=== PATIENT | male | born 1960 | race Caucasian/White ===

== ENCOUNTER 2022-05-13 08:53 | Inpatient (IN) | payer OTHER ==
[2022-05-13] VITALS (12 sets, daily range): BP systolic 54–129; BP diastolic 26–80
[~2022-05-13] VITALS: Ht 172.7 cm; Wt 64.9 kg
[2022-05-13] MEDS ORDERED: NACL 0.9% 1,000 ML IV ONE ×3 (09:00→13:30)
--- NOTE | 2022-05-13 09:10 | NUR ---
BLOOD AND ADINA SWAB COLLECTED AND HANDED TO LAB.
--- NOTE | 2022-05-13 09:30 | NUR ---
62Y/O MALE BIBA FROM [facility] EXTENDED CARE FOR LOW BLOOD SUGAR. EMS REPORTS BLOOD SUGAR ON SCENE WAS 24, PT GIVEN D10 IV. PT BLOOD SUGAR 169, HYPOTENSIVE 43/[address] PARISI AND RT MADE AWARE OF PT'S STATUS UPON ARRIVAL. PT PLACED IN GOWN, ON BEDSIDE MONITOR.
[2022-05-13 09:32] LABS: BASOPHILS % (AUTO) 0.2 % (0.0-2.0); EOSINOPHILS # (AUTO) 0.1 K/uL (0-0.4); EOSINOPHILS % (AUTO) 0.7 % (0.0-4.0); HEMATOCRIT 24.9 % (36-52); HEMOGLOBIN 8.1 g/dL (12.0-18.0); LYMPHOCYTES # (AUTO) 0.6 K/uL (2.0-11.5); LYMPHOCYTES % (AUTO) 2.9 % (20.5-51.1); MEAN CORPUSCULAR HEMOGLOBIN 28 pg (27-31); MEAN CORPUSCULAR HGB CONC 33 g/dL (33-37); MONOCYTES # (AUTO) 0.9 K/uL (0.8-1.0); MONOCYTES % (AUTO) 4.2 % (1.7-9.3); NEUTROPHILS # (AUTO) 19.6 K/uL (1.8-7.7); PLATELET COUNT (AUTO) 443 K/uL (140-450); RED BLOOD CELL COUNT(AUTO) 2.87 MIL/uL (4.20-6.10); RED CELL DISTRIBUTION WIDTH 14.8 % (11.6-13.7); WHITE BLOOD COUNT (AUTO) 21.3 K/uL (4.8-10.8)
[2022-05-13] MEDS ORDERED: NOREPINEPHRINE 4 MG/4 ML VIAL IV ONE (09:42)
[2022-05-13] MEDS ORDERED: ASPIRIN 81 MG TAB.CHEW GT ONE (09:45)
[2022-05-13] MEDS ORDERED: CEFEPIME 2,000 MG in DEXTROSE 5% 100 ML IV ONE (09:55)
[2022-05-13] MEDS ORDERED: VANCOMYCIN 1,000 MG in DEXTROSE 5% 250 ML IV ONE (09:55)
[2022-05-13 09:56] LABS: ALBUMIN 1.8 g/dL (3.4-5.0); ANION GAP 8.8 (8-16); ASPARTATE AMINOTRANSFERASE 13 U/L (15-37); CHLORIDE 99 mmol/L (98-107); CREATININE 0.6 mg/dL (0.6-1.3); GFR ARICAN-AMERICAN 175 mL/min (>90); GLUCOSE 152 mg/dL (74-106); POTASSIUM 3.8 mmol/L (3.5-5.1); SODIUM SERUM 138 mmol/L (136-145); TOTAL BILIRUBIN 0.1 mg/dL (0.0-1.0); UREA NITROGEN, BLOOD 42 mg/dL (7-18)
[2022-05-13] MEDS ORDERED: CEFEPIME 2,000 MG VIAL IV ONE (10:15)
[2022-05-13] MEDS ORDERED: CRUSHER, PILL MC ONE (10:33)
[2022-05-13] MEDS ORDERED: VANCOMYCIN 1,000 MG VIAL ONE (11:32)
[2022-05-13] MEDS ORDERED: ACETAMINOPHEN 325 MG TAB PO PRN (11:35)
[2022-05-13] MEDS ORDERED: ONDANSETRON 4 MG/2 ML VIAL IVP PRN (11:35)
[2022-05-13] MEDS ORDERED: MORPHINE SULFATE 4 MG/ML SYR IVP PRN (11:35)
[2022-05-13] MEDS ORDERED: VANCOMYCIN PER PHARMACY MC PRN (11:35)
[2022-05-13] MEDS ORDERED: POTASSIUM CHLORIDE 10 MEQ TABER PO PRN (11:35)
--- NOTE | 2022-05-13 12:35 | NUR ---
Patient will be admitted to care of Dr. Hicks. Admited to TELE. Will go to room ICU-1. Belongings list completed. Report to ERMIAS Haley.
--- NOTE | 2022-05-13 16:55 | NUR ---
Spoke to DR. ivy regarding 500 Residuals suctioned through G tube and stoma of tracheostomy, Orders given for KUB, ativan q6hs for agitation, and to wear fio2. Will continue to monitior patient is not on pressors currently.
[2022-05-13] MEDS ORDERED: VALP-22 GT (18:46)
[2022-05-13] MEDS ORDERED: QUET200T PO (18:48)
[2022-05-13] MEDS ORDERED: METF-346 PO (18:49)
[2022-05-13] MEDS ORDERED: PRO5 PO (18:50)
[2022-05-13] MEDS ORDERED: DOCU-299 PO (18:50)
[2022-05-13] MEDS ORDERED: FAMO-90 PO (18:51)
[2022-05-13] MEDS ORDERED: FERR-212 PO (18:52)
--- NOTE | 2022-05-13 19:20 | NUR ---
[facility]
[2022-05-13] MEDS: NACL 0.9% 1,000 ML IV SCH (21:50)
[2022-05-13] MEDS: PIPERACILLIN/TAZOBACTAM 3.375 GM in DEXTROSE 5% 50 ML IV SCH (21:51)
[2022-05-14] VITALS (14 sets, daily range): BP systolic 111–138; BP diastolic 60–83
--- NOTE | 2022-05-14 00:30 | NUR ---
FRANK CATHETER INSERTED AT BEDSIDE
[2022-05-14] MEDS: LORazepam 2 MG/ML VIAL IVP PRN ×4 (02:37→23:20)
[2022-05-14] MEDS: PIPERACILLIN/TAZOBACTAM 3.375 GM in DEXTROSE 5% 50 ML IV SCH ×3 (05:06→21:27)
[2022-05-14 05:24] LABS: APPEARANCE,URINE CLEAR (CLEAR); BILIRUBIN,URINE NEGATIVE (NEGATIVE); BLOOD, URINE TRACE-I (NEGATIVE); COLOR,URINE YELLOW (YELLOW); LEUKOCYTE ESTERASE ,URINE NEGATIVE (NEGATIVE); NITRITE, URINE NEGATIVE (NEGATIVE); UGLUCOSE NEGATIVE (NEGATIVE)
[2022-05-14 05:33] LABS: BASOPHILS % (AUTO) 0.2 % (0.0-2.0); EOSINOPHILS % (AUTO) 0.3 % (0.0-4.0); HEMOGLOBIN 8.3 g/dL (12.0-18.0); LYMPHOCYTES # (AUTO) 0.6 K/uL (2.0-11.5); LYMPHOCYTES % (AUTO) 3.4 % (20.5-51.1); MEAN CORPUSCULAR HEMOGLOBIN 28 pg (27-31); MEAN CORPUSCULAR HGB CONC 33 g/dL (33-37); MONOCYTES # (AUTO) 0.8 K/uL (0.8-1.0); MONOCYTES % (AUTO) 4.9 % (1.7-9.3); NEUTROPHILS % (AUTO) 91.2 % (42.2-75.2); PLATELET COUNT (AUTO) 423 K/uL (140-450); RED BLOOD CELL COUNT(AUTO) 2.91 MIL/uL (4.20-6.10); WHITE BLOOD COUNT (AUTO) 16.5 K/uL (4.8-10.8)
[2022-05-14 05:53] LABS: RBC,URINE 0-5 /HPF (0-5)
[2022-05-14 05:54] LABS: WBC,URINE 0-5 /HPF (0-5)
[2022-05-14 06:29] LABS: ALBUMIN 1.8 g/dL (3.4-5.0); ANION GAP 11.8 (8-16); CARBON DIOXIDE 29.3 mmol/L (21-32); CREATININE 0.5 mg/dL (0.6-1.3); MAGNESIUM 1.5 mg/dL (1.8-2.4); PHOSPHORUS 3.6 mg/dL (2.5-4.9); POTASSIUM 4.1 mmol/L (3.5-5.1); TOTAL BILIRUBIN 0.1 mg/dL (0.0-1.0)
--- NOTE | 2022-05-14 07:17 | NUR ---
PATIENT WITH POSSIBLE STOOL LEAKING FROM TRACHEOSTOMY, MD IS AWARE. KUB RESLUTS ARE PENDING GTUBE IS CLAMPED
--- NOTE | 2022-05-14 08:00 | NUR ---
RECEIVED REPORT FROM APARTMENT RENTAL CLERK. BASELINE ASSESSMENT COMPLETED.
--- NOTE | 2022-05-14 08:00 | NUR ---
RECEIVED REPORT FROM CERTIFIED MASTER SAFE TECHNICIAN NURSE. BASELINE ASSESSMENT COMPLETED.
[2022-05-14] MEDS: NACL 0.9% 1,000 ML IV SCH ×3 (08:12→23:25)
[2022-05-14] MEDS: DOCUSATE SODIUM 100 MG GELCAP PO SCH (08:25)
--- NOTE | 2022-05-14 08:58 | NUR ---
DC PLANNIN YRS OLD MALE PATIENT WAS ADMITTED FROM [facility] WITH A DX OF SEPSIS DUE TO PNEUMONIA. PATIENT HAS A HX OF ANOXIC BRAIN INJURY ,NON VERBAL TRACH TO VENT AND DYSPHAGIA WITH G-TUBE. CXR SHOWED MULTIFOCAL PNEUMONIA RAPID COVID TEST NEGATIVE. LOW BP 54/26 ADMITTED TO ICU FOR LEVOPHED DRIP.WBC ON ADMISSION 21.3 LACTIC ACID 2.9,3.4 AND 2.0 ADMINISTERED IVF, IV ABX VANCO AND ZOSYN. CONSULTED WITH PULMO. DC PLAN TO RETURN TO [facility] WHEN STABLE. CM TO FOLLOW Addendum: 05/26/22 at 1344 by Geno Andino RN DC PLANNING: PATIENT GOT ACCEPTED AT [facility] CAN GO TO ROOM 2A # TO GIVE REPORT [phone] ARRANGED TRANSPORT WITH [facility] SUPERVISOR ROD PLACING TIME 3PM NOTIFIED RANULFO MONSON. CM TO FOLLOW
--- NOTE | 2022-05-14 09:15 | NUR ---
DR THORNE AT BEDSIDE EVALUATING PATIENT. RECEIVED VERBAL ORDER TO REMOVE RECTAL TUBE.
--- NOTE | 2022-05-14 09:23 | NUR ---
PATIENT HAS BEEN SCREENED AND CATEGORIZED HIGH NUTRITION RISK. PATIENT WILL BE SEEN WITHIN 1-2 DAYS OF ADMISSION. 05/13/22-05/15/22 FNS CONSULT RECEIVED FOR UZMA 12 OR LOWER AND WOUNDS/PRESSURE ULCERS. REVIEWED BY RODRIGO GEE RD
--- NOTE | 2022-05-14 09:35 | NUR ---
REMOVED RECTAL TUBE PER DR THORNE
--- NOTE | 2022-05-14 09:48 | NUR ---
WOUND CARE NURSE AT BEDSIDE. NOTIFIED OF ORDERS: RIGHT HEEL-BETADINE BILATERAL HIPS HYDROGEL Addendum: 05/14/22 at 0903 by Agency Nurse ERMIAS Christianson RN LEFT HEEL
--- NOTE | 2022-05-14 10:59 | NUR ---
PATIENT IS A 62 Y/O PT. ADMITTED WITH HYPOGLYCEMIC AND HYPOTENSIVE. 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 TRACH AND GT SHELLEY STOMA SKIN DRY AND CLEAN. PT. ADMITTED WITH MULTIPLE PRESSURE INJURIES. PLAN OF CARE DISCUSSED WITH PRIMARY RN JAMES -MOISTURE ASSOCIATED SKIN DAMAGE(MASD) TO: B/L GROINS, TO SCROTAL, SKIN REDNESS, PEELING -PRESSURE INJURY SACRALCOCCYX UN-STAGEABLE 3X4CM WOUND BED 90% YELLOW SLOUGH TISSUE, MOIST, NO ODOR, WOUND EDGE FLAT, SHELLEY-WOUND SKIN HEALING SCAR TISSUE, WOUND EDGE SLIGHTLY PURPLE IN COLOR INDICATED FURTHER DAMAGE - PRESSURE INJURY STAGE 3 TO RIGHT TROCHANTER 3X1.5X0.2CM 50 % SCATTERED YELLOW SLOUGH TISSUE, 50% PINK GRANULATING TISSUE, MOIST NO ODOR, WOUND EDGE ATTACHED SHELLEY WOUND DRY HEALED SCAR SKIN. - PRESSURE INJURY UN-STAGEABLE TO LEFT TROCHANTER, 2 SITES, SITE #1 1X1CM THIN YELLOW SLOUGH TISSUE, MOIST NO ODOR, SHELLEY WOUND SKIN INTACT, SITE #2 0.8X1CM WOUND BED 100% BROWN COLOR, MOIST, NO ODOR -RIGHT HALLUX TOE DRY ABRASION 0.8X0.8CM -PRESSURE INJURY LEFT HEEL UNSTAGEABLE, 4X4CM, WOUND BED IS 100% BLACK ESCHAR TISSUE, DRY, NO ODOR, SHELLEY WOUND SKIN DRY SCALY RECOMMENDATIONS: -APPLY HYDRAGUARD TO B/L GROINS, TO SCROTAL BID AND PRN IF SOILING -LEFT HEEL APPLY SOAKED 4X4 GAUZES BETADINE SOLUTION AND COVER WITH SUSANNA DRESSING QD AND PRN IF SOILIBNG - CLEANSE SACRALCOCCYX, LEFT AND RIGHT HIP WITH WOUND CLEANSING SOLUTION, APPLY HYDROGEL WITH ADAPTIC DRESSING COVER WITH COMPOSITE DRESSING QD AND PRN IF SOILING -APPLY FOAM DRESSING TO SACROCOCCYX Q3 DAYS AND PRN IF SOILING -POSITIONING: TURN AND REPOSITION PATIENT Q 2H OR SOONER USE PILLOWS TO KEEP BONY PROMINENCES FROM DIRECT CONTACT WITH SURFACES USE REPOSITIONING WEDGES TO PROVIDE 30-DEGREE ANGLE FOR SIDE LYING POSITIONS OFFLOADING OR FOAM DRESSING TO ALL TUBING TO PREVENT MEDICAL DEVICES RELATED PRESSURE INJURY -RE-EVALUATING AND MANAGING INCONTINENCE MONITOR SKIN CONDITION DURING POSITION CHANGE DO NOT MASSAGE REDNESS, BONY PROMINENCES, DO NOT USE DONUT-TYPE DEVICES FREQUENT SHELLEY-CARE AND PROVIDE BARRIER CREAMS PRN IF SOILING MOISTURE CONTROL BY OFFER BED THEODORE/URINAL /ABSORBENT PAD TO WICK AND HOLD MOISTURE. KEEP SKIN DRY AND PROTECT FROM FRICTION -MANAGE FRICTION/SHEAR/MOBILITY KEEP HOB AT THE LOWEST LEVEL OF ELEVATION NO MORE THAN 30 DEGREES UNLESS OTHERWISE CONTRAINDICATED USE LIFT SHEET OR TRANSFER DEVICE TO MOVE PATIENT AND PREVENT LATERAL SHEER. CONSIDER TRAPEZE IF APPROPRIATE PROTECT HEELS, ELBOWS BONY PROMINENCES WITH SKIN BERRIES OR FOAM DRESSING IF EXPOSED TO FRICTION OFFLOAD BILATERAL HEELS BY PLACING PILLOWS UNDER CALVES AT ALL TIMES, UNLESS OTHERWISE CONTRAINDICATED -PRESSURE REDISTRIBUTION SURFACE THERAPY MERVIN ISOFLEX VIRI MATTRESS -NUTRITION: PLEASE FOLLOW RD RECOMMENDATIONS AND OFFER NUTRITION SUPPLEMENTS IF ORDERED.
[2022-05-14] MEDS ORDERED: VANCOMYCIN 1,000 MG in DEXTROSE 5% 250 ML IV SCH (11:00)
--- NOTE | 2022-05-14 11:45 | NUR ---
PATIENT KICKING SIDE RAIL INTERMITTENTLY, INSTRUCTED PATIENT HE POSSIBLE COULD HURT HIMSELF, CONTINUED TO KICK SIDE RAILS. GIVEN ATIVAN 1MG IVP FOR RASS +2
--- NOTE | 2022-05-14 12:04 | NUR ---
PATIENT DECREASED AGITATION RESTLESSNESS TO RASS -1, PATIENT NOT KICKING SIDE RAILS
--- NOTE | 2022-05-14 12:10 | NUR ---
UPDATED DAUGHTER ON PATIENTS CURRENT CONDITION VIA TELEPHONE
[2022-05-14] MEDS ORDERED: SKINTEGRITY HYDROGEL TP PRN (13:05)
[2022-05-14] MEDS: METOCLOPRAMIDE 10 MG/2 ML INJ VIAL IVP SCH ×2 (13:27→21:28)
--- NOTE | 2022-05-14 13:45 | NUR ---
DC PLANNING OUTREACHED TO PT EMERGENCY CONTACT, COREY WERNER, SISTER, TO GATHER COLLATERAL INFORMATION HOWEVER, COREY REQUESTING A RETURN PHONE CALL SHE WAS UNAVAILABLE TO SPEAK. SW TO FOLLOW
[2022-05-14] MEDS: SKINTEGRITY HYDROGEL TP SCH (14:29)
[2022-05-14] MEDS: GAUZE TP SCH (14:29)
[2022-05-14] MEDS: HYDRAGUARD CREAM TP SCH (15:25)
[2022-05-14] MEDS: HYDROcodone/APAP 5/325 MG 1 TAB TAB PO PRN (15:41)
--- NOTE | 2022-05-14 16:02 | NUR ---
05/14/2022 RD INITIAL ASSESSMENT COMPLETED. PLEASE REFER TO NUTRITION ASSESSMENT UNDER CARE ACTIVITY FOR ESTIMATED NUTRITIONAL NEEDS. 1.WHEN/IF MEDICALLY APPROPRIATE TO INITIATE TF, RECOMMEND GLUCERNA 1.2 ADRIANNE WITH A GOAL RATE OF 60ML/HR, STARTING AT 20 ML/HR AND INCREASING BY 20 ML Q4H UNTIL GOAL RATE IS REACHED. -FWF 200ML Q6H -PROSOURCE BID (30 GRAMS PROTEIN 120 KCAL)TO PROMOTE WOUND HEALING. THIS WILL PROVIDE (WITH PROSOURCE) 1788 KCAL, 116 GRAMS OF PROTEIN, AND 1159 ML FREE WATER, MEETING 92% OF ESTIMATED CALORIE AND 100% OF PROTEIN NEEDS; ADEQUATE. 2. MONITOR NPO STATUS 3.RD TO FOLLOW-UP IN 2-3 DAYS PATIENT IS HIGH RISK. RODRIGO GEE RD
--- NOTE | 2022-05-14 18:15 | NUR ---
TRANSFERRED PATIENT TO ROOM 113 VIA BED WITH RT. REPORT GIVEN AT BEDSIDE TO LAURA MONSON
--- NOTE | 2022-05-14 18:18 | NUR ---
RECEIVE REPORT FORM ICU NURSE JAMES THAT PATIENT IS NPO R/T G-TUBE FEED; COME FROM SNF FOR HYPOGLYCEMIC & HYPOTENSIVE CONDITION WHICH DIAGNOSIS WITH SEPSIS 2/2 PNA W/ HX OF ANOXIC BRAIN INJURY, NON-VERBAL, DM, CHRONIC RESPIRATORY FAILURE W/ TRACH ON VENTILATORY (FIO2=35), DYSPHAGIC ON G-TUBE. L. SIDE HEMIPARESIS; NKA, FULL CODE, BED BOUND, FRANK 16FR PRESENT FOR INCONTINENT, PIV R. FOREARM INFUSING NS @100ML/HR. L.WRIST SALINE LOCK. WOUND PRESENT AT L.TOE (USING BETADINE DRESSING), R. HEEL, l. & R. HIP (USING HYDROGEL DRESSING). REST[facility] WILL CONTINUE TO MONITOR Addendum: 05/14/22 at 1911 by Malini Herzog RN ENDORSE PATIENT TO PM SHIFT NURSE IN STABLE CONDITION. INFORM NURSE THAT RECTAL TUBE IS AVAILABLE IF PATIENT HAS DIARRHEA
--- NOTE | 2022-05-14 19:51 | NUR ---
RECEIVED PATIENT FROM DAY RN FOR CONTINUITY OF CARE. PT NON VERBAL, APHASIC. ON TRACH TO VENT 35% FIO2. ON SOFT WRISTS RESTRAINTS ON BILATERAL WRISTS. FRANK IN PLACE DRAINING CLEAR YELLOW URINE.NO S/SX OF DISTRESS AT THIS MOMENT.ALL PRECAUTIONS IN PLACE.WILL CONTINUE TO MONITOR.
--- NOTE | 2022-05-14 21:00 | NUR ---
SCHEDULED MEDICATIONS GIVEN. NO DISTRESS NOTED. WILL CONTINUE TO MONITOR.
[2022-05-14] MEDS: MAGNESIUM OXIDE 400 MG TAB PO PRN (23:30)
--- NOTE | 2022-05-14 23:38 | NUR ---
PATIENT REPOSITIONED WOUND DRESSING CHANGED. 1MG ATIVAN PRN GIVEN DUE TO RESTLESSNESS. WILL CONTINUE TO MONITOR. O2 SAT AT 97%.
[2022-05-15] VITALS: BP 128/67
--- NOTE | 2022-05-15 01:00 | NUR ---
PATIENT IS ASLEEP. CHEST RISE AND FALL NOTED, BREATHING EQUAL AND UNLABORED. ALL PRECAUTIONS IN PLACE.. WILL CONTINUE TO MONITOR
[2022-05-15] MEDS: HYDRAGUARD CREAM TP SCH ×2 (01:14→13:14)
[2022-05-15 04:00] VITALS: BP 114/66
--- NOTE | 2022-05-15 05:30 | NUR ---
SCHEDULED MEDICATIONS GIVEN. PT TOLERATED WELL. O2 SAT AT 97%. ALL PRECAUTIONS IN PLACE. WILL CONTINUE TO MONITOR.
[2022-05-15] MEDS: PIPERACILLIN/TAZOBACTAM 3.375 GM in DEXTROSE 5% 50 ML IV SCH ×3 (05:38→21:11)
[2022-05-15] MEDS: METOCLOPRAMIDE 10 MG/2 ML INJ VIAL IVP SCH ×3 (05:38→21:11)
--- NOTE | 2022-05-15 06:53 | NUR ---
PT IS STABLE. NO ACUTE EVENTS THROUGHOUT THE NIGHT.NO S/SX OF DISTRESS NOTED. ALL NEEDS ATTENDED. ALL PRECAUTIONS IN PLACE. WILL ENDORSE TO AM SHIFT NURSE.
--- NOTE | 2022-05-15 07:25 | NUR ---
RECEIVED BEDSIDE REPORT FROM [facility] ERMIAS SELLERS FOR CONTINUITY OF CARE. PT IS APHASIC A&OX1. PT IS CURRENTLY ON A TRACH TO VENT, SATING AT 97%. PTS FLACC IS 0. PT HAS GTUBE IN PLACE WHICH IS CLAMPED. PT HAS A RIGHT FOREARM 20G IV WHICH IS PATENT AND INTACT, 18G IV IN THE LEFT WRIST WHICH IS PATENT & INTACT. PTS BED IS IN LOWEST POSITION, BED ALARMS ON, CALL LIGHT WITHIN REACH. WILL MONITOR FREQUENTLY.
[2022-05-15 07:37] LABS: BASOPHILS % (AUTO) 0.2 % (0.0-2.0); EOSINOPHILS % (AUTO) 0.5 % (0.0-4.0); LYMPHOCYTES # (AUTO) 0.6 K/uL (2.0-11.5); LYMPHOCYTES % (AUTO) 6.5 % (20.5-51.1); MEAN CORPUSCULAR HEMOGLOBIN 29 pg (27-31); MEAN CORPUSCULAR HGB CONC 34 g/dL (33-37); MEAN CORPUSCULAR VOLUME 85.4 fL (80-94); MONOCYTES # (AUTO) 0.6 K/uL (0.8-1.0); MONOCYTES % (AUTO) 6.8 % (1.7-9.3); NEUTROPHILS # (AUTO) 7.9 K/uL (1.8-7.7); PLATELET COUNT (AUTO) 395 K/uL (140-450); RED BLOOD CELL COUNT(AUTO) 2.29 MIL/uL (4.20-6.10); WHITE BLOOD COUNT (AUTO) 9.2 K/uL (4.8-10.8)
[2022-05-15 07:48] LABS: HEMATOCRIT 19.5 % (36-52); HEMOGLOBIN 6.6 g/dL (12.0-18.0)
[2022-05-15 08:00] VITALS: BP 124/81
[2022-05-15 08:09] LABS: ALBUMIN 1.7 g/dL (3.4-5.0); ANION GAP 8.5 (8-16); CREATININE 0.4 mg/dL (0.6-1.3); MAGNESIUM 1.3 mg/dL (1.8-2.4); PHOSPHORUS 2.7 mg/dL (2.5-4.9); POTASSIUM 3.5 mmol/L (3.5-5.1); TOTAL BILIRUBIN 0.2 mg/dL (0.0-1.0)
[2022-05-15] MEDS: DOCUSATE SODIUM 100 MG GELCAP PO SCH (08:50)
[2022-05-15] MEDS: NACL 0.9% 1,000 ML IV SCH (08:51)
[2022-05-15 10:44] LABS: BASOPHILS % (AUTO) 0.4 % (0.0-2.0); EOSINOPHILS # (AUTO) 0.1 K/uL (0-0.4); EOSINOPHILS % (AUTO) 0.6 % (0.0-4.0); LYMPHOCYTES # (AUTO) 0.6 K/uL (2.0-11.5); LYMPHOCYTES % (AUTO) 7.1 % (20.5-51.1); MEAN CORPUSCULAR HEMOGLOBIN 29 pg (27-31); MEAN CORPUSCULAR HGB CONC 33 g/dL (33-37); MEAN CORPUSCULAR VOLUME 86.4 fL (80-94); MONOCYTES # (AUTO) 0.7 K/uL (0.8-1.0); MONOCYTES % (AUTO) 7.9 % (1.7-9.3); NEUTROPHILS # (AUTO) 7.5 K/uL (1.8-7.7); PLATELET COUNT (AUTO) 393 K/uL (140-450); RED BLOOD CELL COUNT(AUTO) 2.26 MIL/uL (4.20-6.10); RED CELL DISTRIBUTION WIDTH 15.1 % (11.6-13.7)
[2022-05-15 10:53] LABS: HEMATOCRIT 19.5 % (36-52); HEMOGLOBIN 6.5 g/dL (12.0-18.0)
[2022-05-15 12:00] VITALS: BP 123/75
[2022-05-15] MEDS: VANCOMYCIN 750 MG in DEXTROSE 5% 250 ML IV SCH (12:13)
[2022-05-15] MEDS ORDERED: MAG SULF 2000 MG/WATER PREMIX 50 ML IV SCH (12:32)
[2022-05-15] MEDS: MUPIROCIN CA NASAL 2% 1GM TUBE NS SCH (13:13)
[2022-05-15] MEDS: CHLORHEXADINE GLUC 2% CLOTH TP SCH (13:14)
[2022-05-15] MEDS: GAUZE TP SCH (13:14)
[2022-05-15] MEDS: SKINTEGRITY HYDROGEL TP SCH (13:15)
--- NOTE | 2022-05-15 13:41 | NUR ---
DC PLANNING PT TRAYC- VENT DEPENDENT. OUTREACHED TO PT'S SISTER ALIA WERNER, . ALIA REPORTS PT IS IN SUBACUTE CARE WITH [facility], ADMISSION DATE; 04/11/22. AILA REPORTS PATIENT IS A NEW TRAYC TO VENT PT HE WAS COMPLETELY INDEPENDENT PRIOR TO BEING TRAYC'D. ALIA REPORTS PATIENT PREVIOUSLY LIVED AT HOME WITH HER AND THEIR MOTHER. PTS DAUGHTER YUNI GLORIA, RESIDES IN [place] HOWEVER, IS REPORTED TO BE ACTIVE IN PT'S CARE. PT IS CURRENTLY BED BOUND AND TOTAL CARE AT FACILITY. ALIA REPORTS DC PLAN IS FOR PT TO RETURN TO [facility] ONCE MEDICALLY STABLE. Addendum: 05/15/22 at 1342 by Timothy IRELAND Amended: Links added.
[2022-05-15 16:00] VITALS: BP 121/67
--- NOTE | 2022-05-15 18:05 | NUR ---
RESPIRATORY THERAPIST CHANGED PTS DRESSING OVER TRACH, PT TOLERATED WELL, SATING AT 98%.
--- NOTE | 2022-05-15 19:15 | NUR ---
RECEIVED BEDSIDE REPORT FROM DAY SHIFT RN FAISAL FOR CONTINUITY OF CARE. PT IS APHASIC. PT IS TRACH TO VENT. SETTINGS: FIO2 35%, VT 450, RT 16, PEEP 5. PT SATING 98%. PT IS ON SOFT WRIST RESTRAINTS. PT KEEPS KICKING THE SIDE RAIL WITH RIGHT LEG. SIDE RAIL IS PADDED. PT HAS HEEL PROTECTORS ON. PT HAS FC DRAINING VICENTE URINE. PT HAS RIGHT FOREARM 20 GAUGE. AND LEFT WRIST 18 GAUGE. PT HAS NS 100 CC/HR. PT IS DUE FOR 2 PACK RBC. NOT DONE DURING DAY SHIFT.
--- NOTE | 2022-05-15 19:20 | NUR ---
ENDORSED PT TO NIGHTSHIFT RN RADHA. PT IN STABLE CONDITION.
[2022-05-15 20:00] VITALS: BP 123/67
--- NOTE | 2022-05-15 21:12 | NUR ---
SCHEDULE MEDICATION GIVEN. NO ADVERSE REACTION NOTED. WILL CONTINUE TO MONITOR THE PT.
--- NOTE | 2022-05-15 22:40 | NUR ---
1ST UNIT OF PRBC STARTED. NO BLOOD TRANSFUSION REACTION NOTED. WILL CONTINUE TO MONITOR THE PT.
[2022-05-16] VITALS: BP 134/77
--- NOTE | 2022-05-16 01:08 | NUR ---
2ND UNIT OF PRBC STARTED. NO BLOOD TRANSFUSION REACTION NOTED.
[2022-05-16] MEDS: HYDRAGUARD CREAM TP SCH ×2 (01:13→13:05)
--- NOTE | 2022-05-16 02:04 | NUR ---
RT BY BEDSIDE. PT IS NOT IN ANY ACUTE DISTRESS.
--- NOTE | 2022-05-16 03:25 | NUR ---
2ND UNIT PF PRBC FINISHED. NO BLOOD TRANSFUSION REACTION NOTED.
[2022-05-16 04:00] VITALS: BP 144/82
--- NOTE | 2022-05-16 05:10 | NUR ---
PT WAS CLEANED AND CHANGED. SOILED DRESSING CHANGED FROM SACRAL, LEFT HEEL, AND RIGHT HIP.
[2022-05-16] MEDS: METOCLOPRAMIDE 10 MG/2 ML INJ VIAL IVP SCH ×3 (05:22→20:29)
[2022-05-16] MEDS: PIPERACILLIN/TAZOBACTAM 3.375 GM in DEXTROSE 5% 50 ML IV SCH ×3 (05:22→20:29)
--- NOTE | 2022-05-16 07:25 | NUR ---
ENDORSED PT TO DAY SHIFT RN TOMAS FOR CONTINUITY OF CARE. PT IS STABLE.
--- NOTE | 2022-05-16 07:30 | NUR ---
RECEIVED REPORT FROM NIGHTSHIFT NURSERADHA. PT AWAKE AND ALERT, APHASIC. TRACH TO VENT WITH FIO2 @ 35%, VT 450, RR16. 02 SAT @ 100%. GTUBE DRESSING C/D/I. FRANK VIA GRAVITY. RFA #20 AND L WRIST #18. NS @ 40 ML/HR. BILATERAL SOFT WRIST RESTRAINTS WITH GOOD C/S/M. BILATERAL HEEL BOOTS IN PLACE. NEEDS ALL MET AT THIS TIME. PT REPOSITIONED, PT TOLERATED WELL. CONTACT PRECAUTION IN PLACE. ALL SAFETY MEASURES IN PLACE.
--- NOTE | 2022-05-16 07:50 | NUR ---
CONTACTED FOR PRN MG RIDER ORDER. AWAITING RESPONSE.
[2022-05-16 08:00] VITALS: BP 162/79
--- NOTE | 2022-05-16 08:00 | NUR ---
RT AT BEDSIDE, SUCTIONED PT. PT TOLERATED WELL. 02 SAT @ 100%. PT IN NO ACUTE DISTRESS. ALL SAFETY MEASURES IN PLACE.
[2022-05-16 08:35] LABS: BASOPHILS % (AUTO) 0.5 % (0.0-2.0); EOSINOPHILS # (AUTO) 0.1 K/uL (0-0.4); EOSINOPHILS % (AUTO) 0.5 % (0.0-4.0); HEMATOCRIT 26.9 % (36-52); LYMPHOCYTES # (AUTO) 0.6 K/uL (2.0-11.5); LYMPHOCYTES % (AUTO) 6.2 % (20.5-51.1); MEAN CORPUSCULAR HEMOGLOBIN 29 pg (27-31); MEAN CORPUSCULAR HGB CONC 34 g/dL (33-37); MEAN CORPUSCULAR VOLUME 87.1 fL (80-94); MONOCYTES % (AUTO) 9.6 % (1.7-9.3); NEUTROPHILS # (AUTO) 8.6 K/uL (1.8-7.7); NEUTROPHILS % (AUTO) 83.2 % (42.2-75.2); PLATELET COUNT (AUTO) 378 K/uL (140-450); RED BLOOD CELL COUNT(AUTO) 3.09 MIL/uL (4.20-6.10); RED CELL DISTRIBUTION WIDTH 14.4 % (11.6-13.7); WHITE BLOOD COUNT (AUTO) 10.3 K/uL (4.8-10.8)
[2022-05-16 08:58] LABS: ALBUMIN 1.8 g/dL (3.4-5.0); ANION GAP 13.6 (8-16); CREATININE 0.4 mg/dL (0.6-1.3); MAGNESIUM 1.6 mg/dL (1.8-2.4); PHOSPHORUS 2.6 mg/dL (2.5-4.9); POTASSIUM 3.6 mmol/L (3.5-5.1); TOTAL BILIRUBIN 0.4 mg/dL (0.0-1.0)
[2022-05-16] MEDS: DOCUSATE SODIUM 100 MG GELCAP PO SCH (09:00)
--- NOTE | 2022-05-16 10:00 | NUR ---
MD ORDER FOR PRN HYDRALAZINE AND DOCUSATE LIQUID VIA GTUBE. MD ALSO ORDER TO HOLD FEEDING.
[2022-05-16] MEDS: MAG SULF 2000 MG/WATER PREMIX 50 ML IV SCH ×2 (10:05→17:13)
[2022-05-16] MEDS: NACL 0.9% 1,000 ML IV SCH (10:05)
[2022-05-16] MEDS ORDERED: hydrALAZINE 20 MG/ML VIAL IVP PRN (10:20)
[2022-05-16 12:00] VITALS: BP 159/73
[2022-05-16] MEDS: MUPIROCIN CA NASAL 2% 1GM TUBE NS SCH (12:12)
[2022-05-16] MEDS: CHLORHEXADINE GLUC 2% CLOTH TP SCH (12:17)
[2022-05-16] MEDS: HYDROcodone/APAP 5/325 MG 1 TAB TAB PO PRN (12:21)
[2022-05-16] MEDS: VANCOMYCIN 750 MG in DEXTROSE 5% 250 ML IV SCH ×4 (12:26→23:46)
[2022-05-16] MEDS: SKINTEGRITY HYDROGEL TP SCH (13:04)
[2022-05-16] MEDS: GAUZE TP SCH (13:04)
[2022-05-16 16:00] VITALS: BP 153/70
[2022-05-16] MEDS ORDERED: MAG SULF 2000 MG/WATER PREMIX 50 ML IV ONE (16:27)
--- NOTE | 2022-05-16 18:30 | NUR ---
DISCHARGE INSTRUCTIONS GIVEN. PT VERBALIZED UNDERSTANDING. IV DISCONTINUED, CATHETER INTACT. AWAITING PT'S TO PICKUP. NEEDS ALL MET. ALL SAFETY MEASURES IN PLACE. Addendum: 05/16/22 at 1921 by Agency 05 RN RN WRONG PT.
--- NOTE | 2022-05-16 19:21 | NUR ---
REPORT GIVEN TO NIGHTSWVFT NURSE RADHA FOR CONTINUITY OF CARE.
--- NOTE | 2022-05-16 19:25 | NUR ---
RECEIVED BEDSIDE REPORT FROM DAY SHIFT RN TOMAS FOR CONTINUITY OF CARE. PT IS APHASIC. PT IS TRACH TO VENT. SETTINGS: FIO2 35%, VT 450, RT 16, PEEP 5. PT SATING 99%. PT IS ON SOFT WRIST RESTRAINTS. PT KEEPS KICKING THE SIDE RAIL WITH RIGHT LEG. SIDE RAIL IS PADDED. PT HAS HEEL PROTECTORS ON. PT HAS FC DRAINING VICENTE URINE. PT HAS RIGHT FOREARM 20 GAUGE. AND LEFT WRIST 18 GAUGE. PT HAS NS 40 CC/HR. PT HAS SEVERAL WOUNDS ON LEFT AND RIGHT HIP, LEFT HEEL, RIGHT BIG TUE, AND SACRAL. PT HAS GTUBE. FEEDING IS ON HOLD. WILL CONTINUE TO MONITOR THE PT.
[2022-05-16 20:00] VITALS: BP 143/67
--- NOTE | 2022-05-16 20:35 | NUR ---
SCHEDULE MEDICATIONS GIVEN. NO ADVERSE REACTION NOTED. WILL CONTINUE TO MONITOR THE PT.
--- NOTE | 2022-05-16 23:58 | NUR ---
SCHEDULE VANCO GIVEN. NOT ADVERSE REACTION NOTED. PT IS CALM AND NOT IN ANY DISTRESS. WILL CONTINUE TO MONITOR THE PT.
[2022-05-17] VITALS (7 sets, daily range): BP systolic 144–189; BP diastolic 62–88
[2022-05-17] MEDS: HYDRAGUARD CREAM TP SCH ×2 (01:00→13:00)
--- NOTE | 2022-05-17 03:16 | NUR ---
PT OBSERVED. RT BY BEDSIDE. PT NOT IN ANY DISTRESS. PT O2 SAT 95%. IVF RUNNING PER MD ORDER. BED AT THE LOWEST POSITION. HEAD OF THE BED RAISED. WILL CONTINUE TO MONITOR THE PT.
--- NOTE | 2022-05-17 04:30 | NUR ---
PT WAS CLEANED AND CHANGED. PT IS NOT IN ANY DISTRESS. DENIES PAIN. WILL CONTINUE TO MONITOR THE PT.
[2022-05-17] MEDS: PIPERACILLIN/TAZOBACTAM 3.375 GM in DEXTROSE 5% 50 ML IV SCH ×3 (04:41→20:43)
[2022-05-17] MEDS: METOCLOPRAMIDE 10 MG/2 ML INJ VIAL IVP SCH ×3 (05:01→20:44)
--- NOTE | 2022-05-17 07:09 | NUR ---
ENDORSED PT TO DAY SHIFT RN TOMAS FOR CONTINUITY OF CARE. PT IS STABLE.
--- NOTE | 2022-05-17 07:22 | NUR ---
RECEIVED ON A naayaSCAPE R860 VENTILATOR WITH COMPRESSOR ON PLUGGED INTO RED OUTLET TOLERATING WELL WITHOUT ADVERSE REACTIONS NOTED TO A PORTEX DCT # 8 AIRWAY SECURED WITH A TAM TRACH TIE AMBU BAG AT BEDSIDE RESTING COMFORTABLY NO SOB NOTED GOOD CHETS RISE DEEP TRACHEAL SUCTION FOR LARGE THICK YELLOW/GREEN SECRETIONS AIRWAY PATENT
--- NOTE | 2022-05-17 07:30 | NUR ---
RECEIVED REPORT FROM NIGHTSHIFT NURSERADHA. PT AWAKE AND ALERT, APHASIC. TRACH TO VENT WITH FIO2 @ 35%, VT 450, RR16. 02 SAT @ 98%. IN NO ACUTE DISTRESS. GTUBE DRESSING C/D/I. FRANK VIA GRAVITY. RFA #20 AND L WRIST #18 WITH NS @ 40 ML/HR. BILATERAL SOFT WRIST RESTRAINTS WITH GOOD C/S/M. BILATERAL HEEL BOOTS IN PLACE. NEEDS ALL MET AT THIS TIME. PT REPOSITIONED, PT TOLERATED WELL. CONTACT PRECAUTION IN PLACE. ALL SAFETY MEASURES IN PLACE.
[2022-05-17 07:45] LABS: ALBUMIN 1.8 g/dL (3.4-5.0); ANION GAP 11.8 (8-16); CARBON DIOXIDE 27.5 mmol/L (21-32); CREATININE 0.5 mg/dL (0.6-1.3); PHOSPHORUS 2.9 mg/dL (2.5-4.9); POTASSIUM 3.3 mmol/L (3.5-5.1); TOTAL BILIRUBIN 0.2 mg/dL (0.0-1.0)
[2022-05-17 07:48] LABS: BASOPHILS # (AUTO) 0.1 K/uL (0.00-0.22); BASOPHILS % (AUTO) 0.5 % (0.0-2.0); EOSINOPHILS # (AUTO) 0.1 K/uL (0-0.4); HEMATOCRIT 27.2 % (36-52); HEMOGLOBIN 9.1 g/dL (12.0-18.0); LYMPHOCYTES # (AUTO) 0.7 K/uL (2.0-11.5); LYMPHOCYTES % (AUTO) 5.5 % (20.5-51.1); MEAN CORPUSCULAR HEMOGLOBIN 29 pg (27-31); MEAN CORPUSCULAR HGB CONC 34 g/dL (33-37); MEAN CORPUSCULAR VOLUME 85.8 fL (80-94); MONOCYTES % (AUTO) 7.6 % (1.7-9.3); NEUTROPHILS # (AUTO) 10.7 K/uL (1.8-7.7); NEUTROPHILS % (AUTO) 85.4 % (42.2-75.2); PLATELET COUNT (AUTO) 413 K/uL (140-450); RED BLOOD CELL COUNT(AUTO) 3.17 MIL/uL (4.20-6.10); RED CELL DISTRIBUTION WIDTH 14.3 % (11.6-13.7); WHITE BLOOD COUNT (AUTO) 12.6 K/uL (4.8-10.8)
[2022-05-17] MEDS ORDERED: POTASSIUM CHLORIDE 20% 40 MEQ/15 ML UDC GT PRN (08:50)
[2022-05-17] MEDS: DOCUSATE 100 MG/10 ML UDC GT SCH (09:29)
[2022-05-17] MEDS: HYDROcodone/APAP 5/325 MG 1 TAB TAB PO PRN (09:29)
[2022-05-17] MEDS: NACL 0.9% 1,000 ML IV SCH (09:30)
--- NOTE | 2022-05-17 10:54 | NUR ---
STABLE NO INDICATION FOR PULMONARY DISTRESS NOTED GOOD CHEST RISE DEEP TRACHEAL SUCTION FOR LARGE THIN YELLOW SECRETIONS AIRWAY PATENT
--- NOTE | 2022-05-17 11:04 | NUR ---
05/17/22 RD FOLLOW UP COMPLETED PLEASE REFER TO NUTRITION ASSESSMENT UNDER CARE ACTIVITY FOR ESTIMATED NUTRITIONAL NEEDS. 1. TF CURRENTLY ON HOLD; WHEN/IF MEDICALLY APPROPRIATE, CONTINUE WITH GLUCERNA 1.2 @ 20ML/HR AND INCREASE BY 10ML Q4H TOLERATED UNTIL THE GOAL OF 60ML/HR IS REACHED -FWF: 200ML Q6H OR PER MD -RECOMMEND PROSOURCE BID (30 GRAMS PROTEIN 120 KCAL) TO PROMOTE WOUND HEALING. WITH PROSOURCE BID, PT WILL RECEIVE 1788 KCAL, 116 GRAMS OF PROTEIN, AND 1159 ML FREE WATER, MEETING 92% OF ESTIMATED CALORIE AND 100% OF PROTEIN NEEDS; ADEQUATE. 2. RD TO FOLLOW-UP IN 2-3 DAYS PATIENT IS HIGH RISK. NELLIE ERICKSON RD
[2022-05-17] MEDS: VANCOMYCIN 750 MG in DEXTROSE 5% 250 ML IV SCH (12:00)
[2022-05-17] MEDS: CHLORHEXADINE GLUC 2% CLOTH TP SCH (12:00)
[2022-05-17] MEDS: MUPIROCIN CA NASAL 2% 1GM TUBE NS SCH (12:00)
[2022-05-17] MEDS: GAUZE TP SCH (13:00)
[2022-05-17] MEDS: SKINTEGRITY HYDROGEL TP SCH (13:00)
--- NOTE | 2022-05-17 14:00 | NUR ---
IV RESTART ON L FA #22 X1 ATTEMPT WITH POSITIVE BLOOD RETURN, FLUSH WITH NS. PT NODS, "NO" WHEN ASKED IF HE IS IN ANY PAIN. PT RECONNECTED TO IVF. PT REPOSITIONED, HOB ELEVATED. 02 SATURATION @ 96% WITH FIO2 @ 28%. SOFT WRIST RESTRAINT ON R ARM WITH GOOD C/S/M. NEEDS ALL MET AT THIS TIME. ALL SAFETY MEASURES IN PLACE.
--- NOTE | 2022-05-17 15:13 | NUR ---
NO DISTRESS NOTED EQUAL CHEST RISE DEEP TRAC HEAL SUCTION FOR COPIOUS THIN YELLOW/GREEN SECRETIONS AIRWAY PATENT
--- NOTE | 2022-05-17 17:14 | NUR ---
PRN HYDRALAZINE GIVEN.
--- NOTE | 2022-05-17 18:14 | NUR ---
BP RECHECK READS 137/61, HR 98. PT RESTING COMFORTABLY. HOB ELEVATED. 02 @ 96%. IN NO ACUTE DISTRESS. ALL SAFETY MEASURES IN PLACE. HOURLY ROUNDS CONDUCTED THROUGHOUT MY SHIFT.
--- NOTE | 2022-05-17 19:19 | NUR ---
REPORT GIVEN TO NIGHTSHIFT NURSERODRIGO FOR CONTINUITY OF CARE.
--- NOTE | 2022-05-17 19:30 | NUR ---
RECEIVED PT FROM AM NURSE FOR CONTINUITY OF CARE. PT IS STABLE
[2022-05-17] MEDS: LORazepam 2 MG/ML VIAL IVP PRN (22:41)
--- NOTE | 2022-05-17 23:00 | NUR ---
CLEANED AND REPOSITIONED , TOLERATED WELL, NO DISTRESS NOTED
[2022-05-18] VITALS: BP 135/74
[2022-05-18] MEDS: VANCOMYCIN 750 MG in DEXTROSE 5% 250 ML IV SCH ×2 (00:54→11:49)
[2022-05-18] MEDS: HYDRAGUARD CREAM TP SCH ×2 (01:00→12:28)
[2022-05-18 04:00] VITALS: BP 128/78
[2022-05-18] MEDS: PIPERACILLIN/TAZOBACTAM 3.375 GM in DEXTROSE 5% 50 ML IV SCH (04:41)
[2022-05-18] MEDS: METOCLOPRAMIDE 10 MG/2 ML INJ VIAL IVP SCH ×3 (04:42→20:25)
--- NOTE | 2022-05-18 05:32 | NUR ---
PATIENT WAS VERY AGITATED. HE KEPT KICKING AND ASKING FOR WATER. WAS GIVEN ATIVAN EARLIER, BUT HE STILL DID NOT FALL ASLEEP. HE HAS BEEN UP ALL NIGHT. HIGH AND LOW VT ALARMS CONTINUOUSLY TRIGGERED SO HIGH VT ALARM WAS INCREASED TO 800 AND LOW DECREASED TO 275. HIGH PRESSURE ALARM ALSO KEPT TRIGGERING. SUX PT 3 TIMES AND GOT A MODERATE TO LARGE AMOUNT OF THICK WHITISH SPUTUM.
[2022-05-18] MEDS ORDERED: VANCOMYCIN PER PHARMACY MC PRN (07:10)
--- NOTE | 2022-05-18 07:20 | NUR ---
ENDORSED PT TO AM NURSE. PT IS STABLE
--- NOTE | 2022-05-18 07:41 | NUR ---
RECEIVED ON A MobifusionSCAPE R860 VENTILATOR WITH COMPRESSOR ON PLUGGED INTO RED OUTLET TOLERATING WELL WITHOUT ADVERSE REACTIONS NOTED TO A [place] DCT#8 AIRWAY SECURED WITH A TAM TRACH TIE CUFF PRESSURE CHECKED NOTED AMBU BAG AT BEDSISE DEEP TRACHEAL SUCTION FOR MODERATE THICK YELLOW SECRETIONS AIRWAY PATENT
[2022-05-18 07:53] LABS: BASOPHILS % (AUTO) 0.3 % (0.0-2.0); EOSINOPHILS # (AUTO) 0.1 K/uL (0-0.4); EOSINOPHILS % (AUTO) 0.8 % (0.0-4.0); HEMATOCRIT 25.2 % (36-52); HEMOGLOBIN 8.5 g/dL (12.0-18.0); LYMPHOCYTES # (AUTO) 0.6 K/uL (2.0-11.5); MEAN CORPUSCULAR HEMOGLOBIN 29 pg (27-31); MEAN CORPUSCULAR HGB CONC 34 g/dL (33-37); MEAN CORPUSCULAR VOLUME 84.8 fL (80-94); MONOCYTES # (AUTO) 1.1 K/uL (0.8-1.0); MONOCYTES % (AUTO) 7.7 % (1.7-9.3); NEUTROPHILS # (AUTO) 12.1 K/uL (1.8-7.7); PLATELET COUNT (AUTO) 489 K/uL (140-450); RED BLOOD CELL COUNT(AUTO) 2.97 MIL/uL (4.20-6.10); RED CELL DISTRIBUTION WIDTH 14.3 % (11.6-13.7); WHITE BLOOD COUNT (AUTO) 13.9 K/uL (4.8-10.8)
[2022-05-18 08:00] VITALS: BP 160/77
[2022-05-18 08:00] LABS: ALBUMIN 1.8 g/dL (3.4-5.0); ANION GAP 12.5 (8-16); CARBON DIOXIDE 27.2 mmol/L (21-32); CREATININE 0.4 mg/dL (0.6-1.3); MAGNESIUM 1.5 mg/dL (1.8-2.4); PHOSPHORUS 3.1 mg/dL (2.5-4.9); POTASSIUM 3.7 mmol/L (3.5-5.1); TOTAL BILIRUBIN 0.3 mg/dL (0.0-1.0)
--- NOTE | 2022-05-18 08:07 | NUR ---
RECEIVED PATIENT, AOX0-1, RESPONSIVE TO PAINFUL STIMULI, SINUS TACHYCARDIA ON COMPRESSOR OPERATOR, TRACH TO VENT WITH EVEN AND UNLABORED BREATHING. G TUBE WITH FEEDING AT 20 CC /HOUR TOLERATING WELL, NO RESIDUAL, INCREASED TO 30 CC WITH EVENTUAL GOAL AT 60 CC/HOUR. FRANK CATHETER DRAINING CLEAR YELLOW URINE. PATIENT HAS ACTIVE MOTION IN RIGHT UPPER AND LOWER EXTREMITIES, CONSTANTLY TRYING TO PULL AT TUBES AND VENT, RIGHT SOFT WRIST RESTRAINTS RELEASED AND REAPPLIED, RANGE OF MOTION PERFORMED. HEEL PROTECTORS IN PLACE, REPOSITIONED PATIENT ON SIDE. PATIENT HAD 2 X SOFT BMS, SKIN KEPT CLEAN AND DRY. WILL CONTINUE TO MONITOR.
[2022-05-18] MEDS: DOCUSATE 100 MG/10 ML UDC GT SCH (08:19)
[2022-05-18 08:32] LABS: LYMPHOCYTES % (AUTO) 4.1 % (20.5-51.1); NEUTROPHILS % (AUTO) 87.1 % (42.2-75.2)
[2022-05-18] MEDS: NACL 0.9% 1,000 ML IV SCH (09:14)
[2022-05-18] MEDS: MUPIROCIN CA NASAL 2% 1GM TUBE NS SCH (11:49)
[2022-05-18] MEDS: MAGNESIUM OXIDE 400 MG TAB PO PRN (11:51)
[2022-05-18 12:00] VITALS: BP 148/72
[2022-05-18] MEDS: GAUZE TP SCH (12:28)
[2022-05-18] MEDS: SKINTEGRITY HYDROGEL TP SCH (12:29)
--- NOTE | 2022-05-18 12:33 | NUR ---
AGITATED RN AT BEDSIDE GOOD CHEST RISE DEEP TRACHEAL SUCTION FOR MODERATE THIN PALE YELLOW SECRETIONS AIRWAY PATENT
[2022-05-18] MEDS: CHLORHEXADINE GLUC 2% CLOTH TP SCH (12:56)
--- NOTE | 2022-05-18 13:36 | NUR ---
PATIENT WAS CLEANED AND REPOSITIONED, RESTRAINTS REMOVED AND REAPPLIED. WOUND CARE DONE, MEDICATIONS GIVEN, PATIENT TOLERATED TUBE FEEDING WELL, NO RESIDUAL NOTED. INCREASED TUBE FEEDING TO 40 CC/HOUR. PHOTO TAKEN OF NEW WOUND TO RIGHT LATERAL LEG. PRINTED AND PLACED IN CHART. PATIENT RESTING WELL, WILL CONTINUE TO MONITOR.
[2022-05-18 16:00] VITALS: BP 150/67
--- NOTE | 2022-05-18 18:17 | NUR ---
PATIENT HAD MULTIPLE BOWEL MOVEMENTS TODAY, FRANK CATHETER WITH ADEQUATE DRAINAGE. TOLERATING TUBE FEEDS WELL CURRENTLY AT 40 CC/HOUR, IV FLUIDS INFUSING, WOUND CARE CHANGED, NEEDED FOR SOILED DRESSINGS. PATIENT HAS BEEN OCCASIONALLY AGITATED WHEN SOILED. ALL NEEDS MET AT THIS TIME. UPDATED SISTER ON PLAN OF CARE.. WILL ENDORSE TO NIGHT RN.
--- NOTE | 2022-05-18 19:20 | NUR ---
RECEIVED PT FROM AM NURSE FOR CONTINUITY OF CARE. PT IS STABLE
[2022-05-18 20:00] VITALS: BP 124/76
[2022-05-19] VITALS: BP 153/74
[2022-05-19] MEDS: HYDRAGUARD CREAM TP SCH ×2 (01:30→13:26)
--- NOTE | 2022-05-19 02:00 | NUR ---
PATIENT ASLEEP, NO DISTRESS NOTED
[2022-05-19 04:00] VITALS: BP 139/82
[2022-05-19] MEDS: METOCLOPRAMIDE 10 MG/2 ML INJ VIAL IVP SCH ×3 (04:47→20:55)
[2022-05-19] MEDS: LORazepam 2 MG/ML VIAL IVP PRN (05:14)
[2022-05-19 07:30] LABS: ANION GAP 8.7 (8-16); CARBON DIOXIDE 30.7 mmol/L (21-32); CREATININE 0.4 mg/dL (0.6-1.3); POTASSIUM 3.4 mmol/L (3.5-5.1)
--- NOTE | 2022-05-19 07:49 | NUR ---
GOT REPORT FROM THE NIGHT NURSE, PT SLEEPING, NO SOB TRACK IN PLACE FEEDING INFUSING.[id number]
--- NOTE | 2022-05-19 07:51 | NUR ---
FOUND PATIENT ON AC/VC 450 F16 +5 28%. UPON INTIAL AUSCULTATION BREATH SOUNDS WERE COARSE. SUCTIONED PATIENT AND GOT WHITE/CLEAR SECRETIONS. AERATION IMPROVED. PATIENTS BED IS RAISED >30% AND IS RESTING COMFORTABLY. VENT IS PLUGGED INTO RED OUTLET, AMBU BAG, SUCTION AND FLOWMETER ARE PRESENT AT BEDSIDE. WILL CONTINUE TO MONITOR.
[2022-05-19 08:00] VITALS: BP 148/58
[2022-05-19] MEDS: DOCUSATE 100 MG/10 ML UDC GT SCH (09:29)
[2022-05-19] MEDS: NACL 0.9% 1,000 ML IV SCH (09:29)
--- NOTE | 2022-05-19 09:38 | NUR ---
med not given due to clogged G-Tube tried to flush no success.
[2022-05-19 12:00] VITALS: BP 146/61
[2022-05-19] MEDS: VANCOMYCIN 750 MG in DEXTROSE 5% 250 ML IV SCH ×3 (12:10)
[2022-05-19] MEDS: CHLORHEXADINE GLUC 2% CLOTH TP SCH (13:24)
[2022-05-19] MEDS: MUPIROCIN CA NASAL 2% 1GM TUBE NS SCH (13:24)
[2022-05-19] MEDS: GAUZE TP SCH (13:26)
[2022-05-19] MEDS: SKINTEGRITY HYDROGEL TP SCH (13:26)
--- NOTE | 2022-05-19 13:27 | NUR ---
GI CONSULT ORDERED FOR G-TUB MALFUNCTION.[id number]
[2022-05-19 16:00] VITALS: BP 146/61
--- NOTE | 2022-05-19 17:15 | NUR ---
05/19/22 RD FOLLOW UP COMPLETED.PLEASE REFER TO NUTRITION ASSESSMENT UNDER CARE ACTIVITY FOR ESTIMATED NUTRITIONAL NEEDS. 1.TF CURRENTLY ON HOLD; WHEN/IF MEDICALLY APPROPRIATE, CONTINUE WITH GLUCERNA 1.2 @ 60ML/HR IS RECOMMENDED 05/17/22. -FWF: 200ML Q6H OR PER MD -WHEN/IF MEDICALLY APPROPRIATE, RECOMMEND PROSOURCE BID (30 GRAMS PROTEIN 120 KCAL) TO PROMOTE WOUND HEALING. WITH PROSOURCE BID, PT WILL RECEIVE 1848 KCAL, 116 GRAMS OF PROTEIN, AND 1159 ML FREE WATER, MEETING 95% OF ESTIMATED CALORIE AND 100% OF PROTEIN NEEDS; ADEQUATE. 2. RD TO FOLLOW-UP IN 2-3 DAYS PATIENT IS HIGH RISK. RODRIGO GEE RD
[2022-05-19 20:00] VITALS: BP_SYST 126; BP_SYST 130; BP_DIAS 74; BP_DIAS 82
--- NOTE | 2022-05-19 20:30 | NUR ---
PATIENT IS APHASIC. NO S/S OF RESPIRATORY DISTRESS, TRACH TO VENT SETTING: FIO2 29% FLOW 35 PEEP 5. G-TUBE FEEDING IS TEMPORARILY DISCONTINUED , CLOGGED. IVF NS INFUSING AT 40 MLS/HR. ALL SAFETY MEASURES ARE IN PLACE. BED AT LOWEST POSITION WITH WHEEL LOCKED. WILL CONTINUE TO MONITOR.
--- NOTE | 2022-05-19 20:55 | NUR ---
DUE MEDICATIONS GIVEN ORDERED.
--- NOTE | 2022-05-19 22:15 | NUR ---
G-TUBE DECLOGGED FUNCTIONING GOOD NOW.
[2022-05-20] VITALS: BP 130/82
[2022-05-20] MEDS: VANCOMYCIN 750 MG in DEXTROSE 5% 250 ML IV SCH (00:07)
[2022-05-20] MEDS: HYDRAGUARD CREAM TP SCH ×2 (01:15→13:34)
[2022-05-20] MEDS: LORazepam 2 MG/ML VIAL IVP PRN ×2 (02:28→15:39)
[2022-05-20 04:00] VITALS: BP 134/68
[2022-05-20] MEDS: METOCLOPRAMIDE 10 MG/2 ML INJ VIAL IVP SCH ×3 (05:51→22:13)
[2022-05-20 07:07] LABS: ANION GAP 9.7 (8-16); CARBON DIOXIDE 30.7 mmol/L (21-32); CREATININE 0.5 mg/dL (0.6-1.3); POTASSIUM 3.4 mmol/L (3.5-5.1)
[2022-05-20 07:29] LABS: BASOPHILS # (AUTO) 0.1 K/uL (0.00-0.22); BASOPHILS % (AUTO) 0.7 % (0.0-2.0); EOSINOPHILS # (AUTO) 0.1 K/uL (0-0.4); EOSINOPHILS % (AUTO) 0.8 % (0.0-4.0); HEMATOCRIT 21.7 % (36-52); HEMOGLOBIN 7.3 g/dL (12.0-18.0); LYMPHOCYTES # (AUTO) 0.6 K/uL (2.0-11.5); LYMPHOCYTES % (AUTO) 5.3 % (20.5-51.1); MEAN CORPUSCULAR HEMOGLOBIN 29 pg (27-31); MEAN CORPUSCULAR HGB CONC 34 g/dL (33-37); MEAN CORPUSCULAR VOLUME 86.9 fL (80-94); MONOCYTES % (AUTO) 9.8 % (1.7-9.3); NEUTROPHILS # (AUTO) 8.7 K/uL (1.8-7.7); NEUTROPHILS % (AUTO) 83.4 % (42.2-75.2); PLATELET COUNT (AUTO) 378 K/uL (140-450); RED CELL DISTRIBUTION WIDTH 15.2 % (11.6-13.7); WHITE BLOOD COUNT (AUTO) 10.5 K/uL (4.8-10.8)
--- NOTE | 2022-05-20 07:35 | NUR ---
ENDORSED PATIENT TO DAY SHIFT NURSE FOR CONTINUITY OF CARE.
--- NOTE | 2022-05-20 07:39 | NUR ---
GOT REPORT FROM THE NIGHT NURSE, HE IS AWAKE MOVING HIS HEAD BACK AND FORTH, IV AND FEEDING IN PLACE,FELICIA
--- NOTE | 2022-05-20 07:55 | NUR ---
FOUND PATIENT ON AC VC 450 R 16 +5 28% FIO2. SUCTIONED MODERATE AMOUNT OF THICK CREAM COLORED SECRETIONS. PATIENT IS AWAKE. VENT IS PLUGGED INTO RED OUTLET. AMBU BAG, SUCTION AND FLOWMETER ARE AT BEDSIDE. WILL CONTINUE TO MONITOR.
[2022-05-20 08:00] VITALS: BP 133/74
[2022-05-20] MEDS: DOCUSATE 100 MG/10 ML UDC GT SCH (08:16)
[2022-05-20] MEDS: NACL 0.9% 1,000 ML IV SCH (08:16)
[2022-05-20 12:00] VITALS: BP 133/74
[2022-05-20] MEDS: GAUZE TP SCH (13:34)
[2022-05-20] MEDS: SKINTEGRITY HYDROGEL TP SCH (13:34)
--- NOTE | 2022-05-20 15:17 | NUR ---
WOUND CARE RE-EVALUATION NOTE: SKIN CONDITION NO CHANGE, PT WITH OCCULT BLOOD POSITIVE, LOW Hgb, PENDING GI CONSULT. WILL CONTINUE CURRENT SKIN CARE ORDERED -MOISTURE ASSOCIATED SKIN DAMAGE(MASD) TO: B/L GROINS, TO SCROTAL, SKIN REDNESS -PRESSURE INJURY SACRALCOCCYX UN-STAGEABLE 3X4CM WOUND BED 90% YELLOW SLOUGH TISSUE, MOIST, NO ODOR, WOUND EDGE FLAT, SHELLEY-WOUND SKIN HEALING SCAR TISSUE, WOUND EDGE SLIGHTLY PURPLE IN COLOR INDICATED FURTHER DAMAGE - PRESSURE INJURY STAGE 3 TO RIGHT TROCHANTER 3X1.5X0.2CM 60 % SCATTERED YELLOW SLOUGH TISSUE, 40% PINK GRANULATING TISSUE, MOIST NO ODOR, WOUND EDGE ATTACHED SHELLEY WOUND DRY HEALED SCAR SKIN. - PRESSURE INJURY UN-STAGEABLE TO LEFT TROCHANTER, 2 SITES, SITE #1 1X1CM THIN YELLOW SLOUGH TISSUE, MOIST NO ODOR, SHELLEY WOUND SKIN INTACT, SITE #2 0.8X1CM WOUND BED 100% BROWN COLOR, MOIST, NO ODOR -RIGHT HALLUX TOE DRY ABRASION 0.8X0.8CM -PRESSURE INJURY LEFT HEEL UN-STAGEABLE, 4X4CM, WOUND BED IS 100% BLACK ESCHAR TISSUE, DRY, NO ODOR, SHELLEY WOUND SKIN DRY SCALY
[2022-05-20 16:00] VITALS: BP 158/57
[2022-05-20 20:00] VITALS: BP 158/62
--- NOTE | 2022-05-20 20:21 | NUR ---
RECEIVED PATIENT SLEEPING, TRACH TO VENT. BREATHING NORMAL WITH SYMMETRICAL RISE AND FALL OF THE CHEST. IVF INFUSING WELL. G-TUBE FEEDING RUNNING AT 50 MLS/HR. ALL SAFETY MEASURES ARE IN PLACE. FRANK CATHETER DRAINING CLEAR YELLOW URINE. CALL LIGHT WITHIN REACH.
[2022-05-20] MEDS: PANTOPRAZOLE 40 MG INJ VIAL IVP SCH (21:00)
--- NOTE | 2022-05-20 22:13 | NUR ---
DUE MEDICATIONS GIVEN.
[2022-05-21] VITALS: BP 159/65
[2022-05-21] MEDS: HYDRAGUARD CREAM TP SCH ×2 (01:00→13:34)
[2022-05-21 04:00] VITALS: BP 149/61
[2022-05-21] MEDS: METOCLOPRAMIDE 10 MG/2 ML INJ VIAL IVP SCH ×3 (05:43→21:46)
--- NOTE | 2022-05-21 07:45 | NUR ---
ENDORSED PATIENT TO MORNING SHIFT NURSE FOR CONTINUITY OF CARE.
[2022-05-21 08:00] VITALS: BP 143/76
--- NOTE | 2022-05-21 08:07 | NUR ---
RECEIVED PT CARE AND REPORT FROM ASHA MONSON. PT IS RESTING IN BED SEMI-FOWLERS WITH OU CLOSED. NO VISIBLE S/S OF DISTRESS, DISCOMFORT, PAIN OR SOB. CALL LIGHT WITHIN REACH, ALL NEEDS MET AT THIS TIME. BILAT SOFT WRIST RESTRAINTS ON.
[2022-05-21 08:49] LABS: ANION GAP 7.8 (8-16); CARBON DIOXIDE 29.1 mmol/L (21-32); CREATININE 0.4 mg/dL (0.6-1.3); POTASSIUM 4.9 mmol/L (3.5-5.1)
[2022-05-21] MEDS: PANTOPRAZOLE 40 MG INJ VIAL IVP SCH ×2 (09:00→21:46)
[2022-05-21] MEDS: FERROUS SULFATE 300 MG/5 ML UDC GT SCH (09:00)
[2022-05-21] MEDS: DOCUSATE 100 MG/10 ML UDC GT SCH (09:00)
[2022-05-21] MEDS: NACL 0.9% 1,000 ML IV SCH (09:10)
[2022-05-21 10:23] LABS: BASOPHILS # (AUTO) 0.1 K/uL (0.00-0.22); BASOPHILS % (AUTO) 0.7 % (0.0-2.0); EOSINOPHILS # (AUTO) 0.1 K/uL (0-0.4); EOSINOPHILS % (AUTO) 1.2 % (0.0-4.0); LYMPHOCYTES # (AUTO) 0.4 K/uL (2.0-11.5); LYMPHOCYTES % (AUTO) 5.7 % (20.5-51.1); MEAN CORPUSCULAR HEMOGLOBIN 30 pg (27-31); MEAN CORPUSCULAR HGB CONC 35 g/dL (33-37); MEAN CORPUSCULAR VOLUME 87.3 fL (80-94); MONOCYTES # (AUTO) 0.6 K/uL (0.8-1.0); NEUTROPHILS % (AUTO) 83.4 % (42.2-75.2); PLATELET COUNT (AUTO) 65 K/uL (140-450); RED CELL DISTRIBUTION WIDTH 15.6 % (11.6-13.7); WHITE BLOOD COUNT (AUTO) 7.1 K/uL (4.8-10.8)
[2022-05-21 10:31] LABS: HEMATOCRIT 16.6 % (36-52); HEMOGLOBIN 5.8 g/dL (12.0-18.0)
[2022-05-21] MEDS: VALPROIC ACID 250 MG/5 ML UDC GT SCH ×3 (11:39→17:08)
[2022-05-21] MEDS: QUEtiapine FUMARATE 100 MG TAB PO SCH ×2 (11:39→17:08)
--- NOTE | 2022-05-21 11:55 | NUR ---
TEXTED DR. ROGERS TO REPORT HEMOGLOBIN LEVEL OF 5.8 THIS MORNING. AWAITING ORDERS.
[2022-05-21 12:00] VITALS: BP 157/71
--- NOTE | 2022-05-21 12:14 | NUR ---
DR. ROGERS ORDERED STAT REPEAT CBC AND INFORM HIM OF RESULTS OF HEMOGLOBIN.
--- NOTE | 2022-05-21 12:15 | NUR ---
EVELIO FAMILY MEMBER REQUESTED THAT PT HAVE A US OF THE RIGHT LOWER LEG D/T EDEMA AND REDNESS. FAMILY IS ALSO REQUESTING A LIVER PANEL. TECTED DR. ROGERS TO INFORM. AWAITING ORDERS.
[2022-05-21 12:47] LABS: BASOPHILS % (AUTO) 0.4 % (0.0-2.0); EOSINOPHILS # (AUTO) 0.1 K/uL (0-0.4); EOSINOPHILS % (AUTO) 1.3 % (0.0-4.0); LYMPHOCYTES # (AUTO) 0.5 K/uL (2.0-11.5); LYMPHOCYTES % (AUTO) 6.4 % (20.5-51.1); MEAN CORPUSCULAR HEMOGLOBIN 30 pg (27-31); MEAN CORPUSCULAR HGB CONC 34 g/dL (33-37); MEAN CORPUSCULAR VOLUME 86.9 fL (80-94); MONOCYTES # (AUTO) 0.9 K/uL (0.8-1.0); MONOCYTES % (AUTO) 10.7 % (1.7-9.3); NEUTROPHILS # (AUTO) 6.5 K/uL (1.8-7.7); NEUTROPHILS % (AUTO) 81.2 % (42.2-75.2); PLATELET COUNT (AUTO) 300 K/uL (140-450); RED BLOOD CELL COUNT(AUTO) 2.23 MIL/uL (4.20-6.10); RED CELL DISTRIBUTION WIDTH 15.3 % (11.6-13.7)
[2022-05-21 12:51] LABS: HEMATOCRIT 19.3 % (36-52); HEMOGLOBIN 6.6 g/dL (12.0-18.0)
--- NOTE | 2022-05-21 12:52 | NUR ---
ORDERS FOR HEPATIC LEVEL PANEL AND DOPPLER US OF RIGHT LOWER EXTREMITY ORDERED PER FAMILY REQUEST AND DR. ROGERS ORDERS.
--- NOTE | 2022-05-21 12:52 | NUR ---
REPEAT CBC HEMOGLOBIN LEVEL 6.6. REPORTED TO DR. ROGERS. AWAITING ORDERS.
--- NOTE | 2022-05-21 12:55 | NUR ---
05/21/22 RD FOLLOW UP COMPLETED PLEASE REFER TO NUTRITION ASSESSMENT UNDER CARE ACTIVITY FOR ESTIMATED NUTRITIONAL NEEDS. 1. CONTINUE WITH GLUCERNA 1.2 @ 60ML/HR WITH FWF 200ML Q6H TOLERATED -RECOMMEND PROSOURCE BID (30 GRAMS PROTEIN 120 KCAL) TO PROMOTE WOUND HEALING. WITH PROSOURCE BID, PT WILL RECEIVE 1848 KCAL, 116 GRAMS OF PROTEIN, AND 1159 ML FREE WATER, MEETING 95% OF ESTIMATED CALORIE AND 100% OF PROTEIN NEEDS; ADEQUATE. 2. RD TO FOLLOW-UP IN 7 DAYS PATIENT IS LOW RISK. NELLIE ERICKSON RD
[2022-05-21] MEDS: GAUZE TP SCH (13:34)
[2022-05-21] MEDS: SKINTEGRITY HYDROGEL TP SCH (13:34)
--- NOTE | 2022-05-21 15:50 | NUR ---
STARTED 1 UNIT OF PRBC TRANSFUSION. 15 MINUTE PRE-TRANSFUSION VITALS: TEMP: 98.0, PULSE: 100, RR: 19, BP: 110/72. WILL CONTINUE TO MONITOR. Addendum: 05/21/22 at 1559 by ERMIAS MONSON VERIFIED WITH LAURA MONSON.
[2022-05-21 16:00] VITALS: BP 122/60
--- NOTE | 2022-05-21 18:27 | NUR ---
1 UNIT PRBC DONE ADMINISTERING. VITAL SIGNS WNL AND DOCUMENTED ON TRANSFUSION SHEET. TRANSFUSION SHEET REVIEWED BY CHARGE NURSE SHIMA. NO VISIBLE S/S OF DISTRESS, DISCOMFORT, PAIN OR SOB. PT RESTING WITH OU CLOSED. FLUSHING LINE WITH NS AT 100ML/HR. TRACH TO VENT INTACT. CALL LIGHT IS WITHIN REACH, ALL NEEDS HAVE BEEN MET AT THIS TIME. WILL ENDORSE TO NOC SHIFT RN.
[2022-05-21 20:00] VITALS: BP 128/64
--- NOTE | 2022-05-21 21:46 | NUR ---
DUE SCHEDULED MEDICATIONS ADMINISTERED. PATIENT SLEEPING. TRACH TO VENT. NO S/S OF RESPIRATORY DISTRESS. BREATHING REGULAR UNLABORED. SAFETY MEASURES ARE IN PLACE.
--- NOTE | 2022-05-21 23:45 | NUR ---
PATIENT CLEANED, CHANGED AND REPOSITIONED.
[2022-05-22] VITALS: BP 119/60
[2022-05-22] MEDS: HYDRAGUARD CREAM TP SCH ×2 (01:00→12:44)
[2022-05-22 04:00] VITALS: BP 122/65
[2022-05-22] MEDS: METOCLOPRAMIDE 10 MG/2 ML INJ VIAL IVP SCH ×3 (05:33→21:46)
--- NOTE | 2022-05-22 05:33 | NUR ---
SCHEDULED MEDICATION ADMINISTERED.
--- NOTE | 2022-05-22 07:15 | NUR ---
RECEIVED REPORT FROM NIGHTSHIFT NURSE ASHA FOR CONTINUITY OF CARE. PT IS IN STABLE CONDITION AND CURRENTLY SLEEPING. PT IS APHASIC, TRACH TO VENT WITH FIO2 AT 28% AND SPO2 AT 93%. PT IS INCONTINENT OF THE BOWEL AND BLADDER, WITH FRANK TO GRAVITY. G-TUBE FEEDING IS RUNNING AT 60ML/HR, HOWEVER, WATER FLUSH BAG WAS EMPTY. WOUNDS REPORTED ON PT'S RIGHT COVINGTON, TOES, AND BILATERAL HIPS. SOFT WRIST RESTRAINTS ON PT, SKIN UNDERNEATH WAS INTACT. NO SIGNS OF DISTRESS NOTED AT THIS TIME.
--- NOTE | 2022-05-22 07:15 | NUR ---
BEDSIDE REPORT GIVEN TO DAY SHIFT NURSE FOR CONTINUITY OF CARE.
[2022-05-22 07:28] LABS: BASOPHILS # (AUTO) 0.1 K/uL (0.00-0.22); BASOPHILS % (AUTO) 0.9 % (0.0-2.0); EOSINOPHILS # (AUTO) 0.1 K/uL (0-0.4); EOSINOPHILS % (AUTO) 0.9 % (0.0-4.0); HEMATOCRIT 24.5 % (36-52); HEMOGLOBIN 8.3 g/dL (12.0-18.0); LYMPHOCYTES # (AUTO) 0.7 K/uL (2.0-11.5); LYMPHOCYTES % (AUTO) 7.3 % (20.5-51.1); MEAN CORPUSCULAR HEMOGLOBIN 29 pg (27-31); MEAN CORPUSCULAR HGB CONC 34 g/dL (33-37); MEAN CORPUSCULAR VOLUME 86.1 fL (80-94); MONOCYTES # (AUTO) 0.9 K/uL (0.8-1.0); MONOCYTES % (AUTO) 9.9 % (1.7-9.3); NEUTROPHILS # (AUTO) 7.6 K/uL (1.8-7.7); PLATELET COUNT (AUTO) 269 K/uL (140-450); RED BLOOD CELL COUNT(AUTO) 2.85 MIL/uL (4.20-6.10); RED CELL DISTRIBUTION WIDTH 16.1 % (11.6-13.7); WHITE BLOOD COUNT (AUTO) 9.4 K/uL (4.8-10.8)
--- NOTE | 2022-05-22 07:43 | NUR ---
PAGED DR. ROGERS NOTIFYING HIM FOR NEW ORDERS FOR ACCUCHECKS AND INSULIN SLIDING SCALE. NEW ORDERS GIVEN.
[2022-05-22] MEDS ORDERED: DEXTROSE 50% 50 ML SYR IVP PRN (07:45)
[2022-05-22 07:51] LABS: ANION GAP 7.5 (8-16); CARBON DIOXIDE 30.8 mmol/L (21-32); CREATININE 0.7 mg/dL (0.6-1.3); POTASSIUM 4.3 mmol/L (3.5-5.1)
[2022-05-22 08:00] VITALS: BP 127/61
[2022-05-22] MEDS: DOCUSATE 100 MG/10 ML UDC GT SCH (09:09)
[2022-05-22] MEDS: VALPROIC ACID 250 MG/5 ML UDC GT SCH ×3 (09:10→17:30)
[2022-05-22] MEDS: QUEtiapine FUMARATE 100 MG TAB PO SCH ×3 (09:10→17:30)
[2022-05-22] MEDS: FERROUS SULFATE 300 MG/5 ML UDC GT SCH (09:10)
--- NOTE | 2022-05-22 09:10 | NUR ---
ATTEMPTED TO ASPIRATE G-TUBE TO MEASURE RESIDUAL, G-TUBE CLOGGED. WAS ABLE TO UNCLOG G-TUBE WITH ASSISTANCE FROM JUAREZ RN. RESIDUAL 0ML. MEDICATED PT.
[2022-05-22] MEDS: NACL 0.9% 1,000 ML IV SCH (09:11)
[2022-05-22] MEDS: PANTOPRAZOLE 40 MG INJ VIAL IVP SCH ×2 (09:11→21:45)
[2022-05-22 09:32] LABS: ALBUMIN 1.3 g/dL (3.4-5.0); BILIRUBIN,DIRECT 0.1 mg/dL (0.0-0.3); TOTAL BILIRUBIN 0.4 mg/dL (0.0-1.0)
--- NOTE | 2022-05-22 10:33 | NUR ---
DR. MACIEL IN TO SEE PT, SPOKE WITH DAUGHTER YUNI CONCERNING NEED FOR POSSIBLE COLONOSCOPY AND EGD TO ASSESS FOR GI BLEED. DAUGHTER GAVE VERBAL CONSENT VIA TELEPHONE, COSIGNED CONSENT FORM WITH INSTRUCTIONAL RESOURCE TEACHER SHIMA.
[2022-05-22] MEDS: BLOOD GLUCOSE MONITORING 1 DEV DEV FS SCH ×3 (11:30→21:45)
[2022-05-22 12:00] VITALS: BP 127/67
--- NOTE | 2022-05-22 12:00 | NUR ---
PERFORMED BED BATH, LINEN CHANGE AND WOUND CARE ASSISTED BY AJAY TRIPLETT. DIAPER AROUND FRANK WAS SATURATED IN URINE, REASSESSED CATHETER SITE AND THERE APPEARED TO BE SEDIMENT CLOSER TO THE URETHRA. FLUSHED CATHETER WITH 10ML NORMAL SALINE, URINE CAME RIGHT BACK OUT. BAG FILLED TO 50ML OF URINE AND STILL DRAINING.
[2022-05-22] MEDS: LACTULOSE 20 GM/30 ML UDC PO SCH ×2 (12:40→17:29)
[2022-05-22] MEDS: SKINTEGRITY HYDROGEL TP SCH (12:44)
[2022-05-22] MEDS: GAUZE TP SCH (12:44)
[2022-05-22] MEDS: INSULIN LISPRO SLIDING SCALE 100 UNITS/ML VIAL SUBQ PRN (12:54)
--- NOTE | 2022-05-22 14:00 | NUR ---
PT VISUALLY ASSESSED, NO SIGNS OF PAIN OR DISTRESS NOTED. SPO2 96%.
[2022-05-22 16:00] VITALS: BP 136/51
--- NOTE | 2022-05-22 16:00 | NUR ---
PT VISUALLY ASSESSED, SUCTIONED AIRWAY. WHITE/YELLOW SPUTUM NOTED.
--- NOTE | 2022-05-22 17:30 | NUR ---
NO RESIDUAL NOTED, MEDICATED AND FLUSHED G-TUBE. NO SIGNS OF PAIN OR DISTRESS NOTED, NO URINE LEAKING AROUND CATHETER NOTED.
--- NOTE | 2022-05-22 19:28 | NUR ---
ENDORSED PT TO NIGHTSHIFT NURSE RODRIGO FOR CONTINUITY OF CARE. PT IN STABLE CONDITION.
--- NOTE | 2022-05-22 19:35 | NUR ---
RECEIVED PATIENT FROM AM NURSE FOR CONTINUITY OF CARE. PT IS STABLE
[2022-05-22 20:00] VITALS: BP 111/55
--- NOTE | 2022-05-22 21:00 | NUR ---
BOWEL PREP GIVEN ORDERED
[2022-05-22] MEDS: POLYETHYLENE GLYCOL 17 GM/PKT PO SCH (21:47)
[2022-05-22] MEDS: SUPREP BOWEL PREP KIT 354 ML SOLN.RECON PO SCH (21:48)
[2022-05-23] VITALS: BP 130/64
[2022-05-23] MEDS: LACTULOSE 20 GM/30 ML UDC PO SCH ×2 (00:23→06:18)
[2022-05-23] MEDS: HYDRAGUARD CREAM TP SCH ×2 (01:00→12:07)
--- NOTE | 2022-05-23 02:00 | NUR ---
CLEANED AND REPOSITIONED , TOLERATED WELL, NO DISTRESS NOTED
[2022-05-23 04:00] VITALS: BP 133/69
[2022-05-23] MEDS: METOCLOPRAMIDE 10 MG/2 ML INJ VIAL IVP SCH (05:18)
[2022-05-23] MEDS: BLOOD GLUCOSE MONITORING 1 DEV DEV FS SCH ×4 (06:57→21:24)
[2022-05-23] MEDS ORDERED: fentaNYL citrate 0.05 MG/ML VIAL ONE (07:56)
[2022-05-23] MEDS ORDERED: MIDAZOLAM 5 MG/5 ML VIAL ONE (07:56)
[2022-05-23] MEDS ORDERED: LIDOCAINE 2% 100 MG/5 ML UJET TP ONE (07:56)
[2022-05-23] MEDS ORDERED: diphenhydrAMINE 50 MG/ML VIAL ONE (07:56)
[2022-05-23 08:00] VITALS: BP 129/69
[2022-05-23 08:00] LABS: BASOPHILS % (AUTO) 0.2 % (0.0-2.0); EOSINOPHILS # (AUTO) 0.2 K/uL (0-0.4); EOSINOPHILS % (AUTO) 2.3 % (0.0-4.0); HEMATOCRIT 21.1 % (36-52); HEMOGLOBIN 7.1 g/dL (12.0-18.0); LYMPHOCYTES # (AUTO) 0.5 K/uL (2.0-11.5); LYMPHOCYTES % (AUTO) 5.4 % (20.5-51.1); MEAN CORPUSCULAR HEMOGLOBIN 29 pg (27-31); MEAN CORPUSCULAR HGB CONC 34 g/dL (33-37); MEAN CORPUSCULAR VOLUME 86.9 fL (80-94); MONOCYTES # (AUTO) 0.7 K/uL (0.8-1.0); MONOCYTES % (AUTO) 8.9 % (1.7-9.3); NEUTROPHILS % (AUTO) 83.2 % (42.2-75.2); PLATELET COUNT (AUTO) 251 K/uL (140-450); RED BLOOD CELL COUNT(AUTO) 2.43 MIL/uL (4.20-6.10); RED CELL DISTRIBUTION WIDTH 15.7 % (11.6-13.7); WHITE BLOOD COUNT (AUTO) 8.4 K/uL (4.8-10.8)
[2022-05-23] MEDS: QUEtiapine FUMARATE 100 MG TAB PO SCH ×3 (09:00→16:58)
[2022-05-23] MEDS: VALPROIC ACID 250 MG/5 ML UDC GT SCH ×3 (09:00→16:57)
[2022-05-23] MEDS: DOCUSATE 100 MG/10 ML UDC GT SCH (09:00)
[2022-05-23] MEDS: POLYETHYLENE GLYCOL 17 GM/PKT PO SCH ×2 (09:00→10:20)
[2022-05-23] MEDS: SUPREP BOWEL PREP KIT 354 ML SOLN.RECON PO SCH (09:00)
[2022-05-23] MEDS: PANTOPRAZOLE 40 MG INJ VIAL IVP SCH (09:00)
[2022-05-23] MEDS: FERROUS SULFATE 300 MG/5 ML UDC GT SCH ×3 (09:00→21:21)
--- NOTE | 2022-05-23 09:30 | NUR ---
DR. MACIEL AT BEDSIDE FOR PROCEDURE TO BE DONE IN ROOM, OR NURSES AT BEDSIDE.
[2022-05-23] MEDS: NACL 0.9% 1,000 ML IV SCH (09:54)
[2022-05-23 10:43] LABS: ANION GAP 9.4 (8-16); CARBON DIOXIDE 33.8 mmol/L (21-32); CREATININE 0.7 mg/dL (0.6-1.3); POTASSIUM 4.2 mmol/L (3.5-5.1)
[2022-05-23] MEDS ORDERED: MIDAZOLAM 2 MG/2 ML VIAL IVP ONE (11:30)
[2022-05-23] MEDS ORDERED: fentaNYL citrate 0.05 MG/ML VIAL IVP ONE (11:30)
[2022-05-23 12:00] VITALS: BP 129/69
[2022-05-23] MEDS: GAUZE TP SCH (12:07)
[2022-05-23] MEDS: SKINTEGRITY HYDROGEL TP SCH (12:17)
[2022-05-23 16:00] VITALS: BP 128/76
--- NOTE | 2022-05-23 18:09 | NUR ---
RECEIVED ORDER FOR TRANSFUSION 1 UNIT PRBC'S. 1615 V/S: T 97, HR 99, BP 117/68, RR 18, PAIN 0. 1620 PRBC'S VERIFIED WITH SECOND RN CLAUDIA, TRANSFUSION INITIATED AT 50ML/HR FOR 15 MINUTES TO RH 20G. 1635 NO REACTION NOTED, V/S: T 97.1, HR 98, BP 114/67, RR 19, PAIN 0. 1735 V/S: T 97.2, HR 97, BP 121/71, RR 18, PAIN 0. PATIENT RESTING IN BED, TOLERATING TRANSFUSION WELL, FAMILY AT BEDSIDE. GTF INFUSING PER MD ORDER, HOB ELEVATED AT 45 DEGREES, ASPIRATION PRECAUTIONS MAINTAINED AT ALL TIMES. ALL NEEDS MET AT THIS TIME. WILL CONT TO MONITOR AND ENDORSE TO PM NURSE.
--- NOTE | 2022-05-23 19:09 | NUR ---
REPORT GIVEN TO PM NURSE FOR CONTINUITY OF CARE.
--- NOTE | 2022-05-23 19:10 | NUR ---
RECDEIVED REPORT FROM AM NURSE FOR CONTINUITY OF CARE. PT IS STABLE
--- NOTE | 2022-05-23 19:25 | NUR ---
BLOOD TRANSFUSION COMPLETED. NO ADVERSE REACTIONS NOTED
[2022-05-23 20:00] VITALS: BP 124/71
[2022-05-23] MEDS: INSULIN LISPRO SLIDING SCALE 100 UNITS/ML VIAL SUBQ PRN (21:22)
[2022-05-23 23:26] LABS: HEMATOCRIT 28.3 % (36-52); HEMOGLOBIN 9.5 g/dL (12.0-18.0)
[2022-05-24] VITALS: BP 120/74
[2022-05-24] MEDS: HYDRAGUARD CREAM TP SCH ×2 (01:59→13:00)
--- NOTE | 2022-05-24 02:00 | NUR ---
PATIENT ASLEEP. NO S/SX OF DISTRESS NOTED
[2022-05-24 04:00] VITALS: BP 125/70
[2022-05-24] MEDS: INSULIN LISPRO SLIDING SCALE 100 UNITS/ML VIAL SUBQ PRN (06:34)
[2022-05-24] MEDS: BLOOD GLUCOSE MONITORING 1 DEV DEV FS SCH ×4 (06:36→21:48)
[2022-05-24 08:00] VITALS: BP 122/62
[2022-05-24 08:54] LABS: BASOPHILS % (AUTO) 0.2 % (0.0-2.0); EOSINOPHILS # (AUTO) 0.2 K/uL (0-0.4); EOSINOPHILS % (AUTO) 3.2 % (0.0-4.0); HEMATOCRIT 27.4 % (36-52); HEMOGLOBIN 9.2 g/dL (12.0-18.0); LYMPHOCYTES # (AUTO) 0.4 K/uL (2.0-11.5); LYMPHOCYTES % (AUTO) 5.6 % (20.5-51.1); MEAN CORPUSCULAR HEMOGLOBIN 29 pg (27-31); MEAN CORPUSCULAR HGB CONC 34 g/dL (33-37); MEAN CORPUSCULAR VOLUME 86.3 fL (80-94); MONOCYTES # (AUTO) 0.6 K/uL (0.8-1.0); MONOCYTES % (AUTO) 8.3 % (1.7-9.3); NEUTROPHILS # (AUTO) 5.8 K/uL (1.8-7.7); NEUTROPHILS % (AUTO) 82.7 % (42.2-75.2); PLATELET COUNT (AUTO) 315 K/uL (140-450); RED BLOOD CELL COUNT(AUTO) 3.17 MIL/uL (4.20-6.10); RED CELL DISTRIBUTION WIDTH 15.4 % (11.6-13.7)
[2022-05-24] MEDS: FERROUS SULFATE 300 MG/5 ML UDC GT SCH ×2 (09:00→21:46)
[2022-05-24] MEDS: VALPROIC ACID 250 MG/5 ML UDC GT SCH ×3 (09:00→17:30)
[2022-05-24] MEDS: POLYETHYLENE GLYCOL 17 GM/PKT PO SCH (09:00)
[2022-05-24 12:00] VITALS: BP 135/77
[2022-05-24] MEDS: GAUZE TP SCH (13:00)
[2022-05-24] MEDS: SKINTEGRITY HYDROGEL TP SCH (13:00)
[2022-05-24 18:22] VITALS: BP 133/76
--- NOTE | 2022-05-24 21:48 | NUR ---
BLOOD SUGAR CHECK = 146, NO SLIDING ACALE COVERAGE, NO INSULIN NEEDED.
[2022-05-25] MEDS: HYDRAGUARD CREAM TP SCH ×2 (01:00→13:00)
[2022-05-25] MEDS: BLOOD GLUCOSE MONITORING 1 DEV DEV FS SCH ×4 (07:16→21:38)
[2022-05-25] MEDS: INSULIN LISPRO SLIDING SCALE 100 UNITS/ML VIAL SUBQ PRN ×2 (07:21→22:19)
[2022-05-25 08:00] VITALS: BP 130/82
[2022-05-25] MEDS: POLYETHYLENE GLYCOL 17 GM/PKT PO SCH (09:00)
[2022-05-25] MEDS: FERROUS SULFATE 300 MG/5 ML UDC GT SCH ×2 (09:00→21:38)
[2022-05-25] MEDS: VALPROIC ACID 250 MG/5 ML UDC GT SCH ×3 (09:00→17:41)
[2022-05-25] MEDS ORDERED: QUEtiapine FUMARATE 100 MG TAB PO SCH (10:55)
[2022-05-25 11:23] LABS: BASOPHILS % (AUTO) 0.6 % (0.0-2.0); EOSINOPHILS # (AUTO) 0.2 K/uL (0-0.4); EOSINOPHILS % (AUTO) 3.7 % (0.0-4.0); HEMATOCRIT 30.3 % (36-52); HEMOGLOBIN 10.1 g/dL (12.0-18.0); LYMPHOCYTES # (AUTO) 0.6 K/uL (2.0-11.5); LYMPHOCYTES % (AUTO) 11.5 % (20.5-51.1); MEAN CORPUSCULAR HEMOGLOBIN 29 pg (27-31); MEAN CORPUSCULAR HGB CONC 33 g/dL (33-37); MEAN CORPUSCULAR VOLUME 86.3 fL (80-94); MONOCYTES # (AUTO) 0.6 K/uL (0.8-1.0); MONOCYTES % (AUTO) 11.9 % (1.7-9.3); NEUTROPHILS # (AUTO) 3.7 K/uL (1.8-7.7); NEUTROPHILS % (AUTO) 72.3 % (42.2-75.2); PLATELET COUNT (AUTO) 335 K/uL (140-450); RED BLOOD CELL COUNT(AUTO) 3.51 MIL/uL (4.20-6.10); RED CELL DISTRIBUTION WIDTH 15.3 % (11.6-13.7); WHITE BLOOD COUNT (AUTO) 5.1 K/uL (4.8-10.8)
[2022-05-25] MEDS: GAUZE TP SCH (13:00)
[2022-05-25] MEDS: SKINTEGRITY HYDROGEL TP SCH (13:00)
[2022-05-25 14:35] VITALS: BP 130/82
[2022-05-25 16:49] VITALS: BP 130/82
--- NOTE | 2022-05-25 16:59 | NUR ---
Patient has a d/c order to go back to [facility] spoke to tariff supervisor at [facility] in the subacute department and stated cannot accept the patient unless she talks to [facility]. Will contact [facility] and call us back.
[2022-05-25 20:00] VITALS: BP 152/92
[2022-05-26] VITALS: BP 145/76
[2022-05-26] MEDS: HYDRAGUARD CREAM TP SCH ×2 (01:22→13:15)
[2022-05-26 04:00] VITALS: BP 145/76
[2022-05-26 07:18] LABS: BASOPHILS % (AUTO) 0.9 % (0.0-2.0); EOSINOPHILS # (AUTO) 0.1 K/uL (0-0.4); EOSINOPHILS % (AUTO) 2.5 % (0.0-4.0); HEMATOCRIT 28.4 % (36-52); HEMOGLOBIN 9.4 g/dL (12.0-18.0); LYMPHOCYTES # (AUTO) 0.6 K/uL (2.0-11.5); LYMPHOCYTES % (AUTO) 10.5 % (20.5-51.1); MEAN CORPUSCULAR HEMOGLOBIN 29 pg (27-31); MEAN CORPUSCULAR HGB CONC 33 g/dL (33-37); MEAN CORPUSCULAR VOLUME 87.5 fL (80-94); MONOCYTES # (AUTO) 0.5 K/uL (0.8-1.0); NEUTROPHILS # (AUTO) 4.2 K/uL (1.8-7.7); NEUTROPHILS % (AUTO) 76.1 % (42.2-75.2); PLATELET COUNT (AUTO) 293 K/uL (140-450); RED BLOOD CELL COUNT(AUTO) 3.25 MIL/uL (4.20-6.10); RED CELL DISTRIBUTION WIDTH 15.6 % (11.6-13.7); WHITE BLOOD COUNT (AUTO) 5.5 K/uL (4.8-10.8)
--- NOTE | 2022-05-26 07:30 | NUR ---
RECEIVED REPORT FROM NIGHTSHIFT NURSE FOR CONTINUITY OF CARE. PT IS IN STABLE CONDITION AND CURRENTLY SLEEPING. PT IS APHASIC, TRACH TO VENT WITH FIO2 AT 28% AND SPO2 AT 100%. PT IS INCONTINENT OF THE BOWEL AND BLADDER, WITH FRANK TO GRAVITY. G-TUBE FEEDING IS RUNNING. WOUNDS REPORTED ON PT'S RIGHT COVINGTON, TOES, AND BILATERAL HIPS. NO SIGNS OF DISTRESS NOTED AT THIS TIME.
[2022-05-26] MEDS: BLOOD GLUCOSE MONITORING 1 DEV DEV FS SCH ×2 (07:45→11:49)
[2022-05-26 08:00] VITALS: BP 117/71
[2022-05-26] MEDS: POLYETHYLENE GLYCOL 17 GM/PKT PO SCH (09:07)
[2022-05-26] MEDS: FERROUS SULFATE 300 MG/5 ML UDC GT SCH (09:07)
[2022-05-26] MEDS: VALPROIC ACID 250 MG/5 ML UDC GT SCH ×2 (09:07→13:33)
[2022-05-26 12:00] VITALS: BP 145/89
--- NOTE | 2022-05-26 12:31 | NUR ---
WITH LARGE SOFT BM X1, SHELLEY CARE DONE, TURNED AND REPOSITIONED
[2022-05-26] MEDS: SKINTEGRITY HYDROGEL TP SCH (13:15)
[2022-05-26] MEDS: GAUZE TP SCH (13:15)
--- NOTE | 2022-05-26 14:57 | NUR ---
REPORT GIVEN TO SIOBHAN MCMANUS IN [facility]
== END 2022-05-26 15:20 | DRG 720 ==
LOC: MED 08:53 → MIC 11:37 → MTU 05-14 18:45
PROVIDERS: ADMIT Hospitalist; ATTEND Emergency Medicine
PROC: 5A1955Z Respiratory Ventilation, Greater than 96 Consecutive Hours (ICD-10-PCS; principal; 2022-05-13)
PROC: 0D9670Z Drainage of Stomach with Drainage Device, Via Natural or Artificial Opening (ICD-10-PCS; 2022-05-13)
PROC: 30233N1 Transfusion of Nonautologous Red Blood Cells into Peripheral Vein, Percutaneous Approach (ICD-10-PCS; 2022-05-15)
PROC: 0DJD8ZZ Inspection of Lower Intestinal Tract, Via Natural or Artificial Opening Endoscopic (ICD-10-PCS; 2022-05-23)
PROC: 0DJ08ZZ Inspection of Upper Intestinal Tract, Via Natural or Artificial Opening Endoscopic (ICD-10-PCS; 2022-05-23 09:05)
DX: A41.9 Sepsis, unspecified organism (principal); J96.20 Acute and chronic respiratory failure, unspecified whether with hypoxia or hypercapnia; R65.21 Severe sepsis with septic shock; J69.0 Pneumonitis due to inhalation of food and vomit; R64 Cachexia; K59.39 Other megacolon; G93.1 Anoxic brain damage, not elsewhere classified; K56.7 Ileus, unspecified; Z20.822 Contact with and (suspected) exposure to COVID-19; E11.649 Type 2 diabetes mellitus with hypoglycemia without coma; I95.9 Hypotension, unspecified; K64.8 Other hemorrhoids; I10 Essential (primary) hypertension; D64.9 Anemia, unspecified; E11.65 Type 2 diabetes mellitus with hyperglycemia; Z99.11 Dependence on respirator [ventilator] status; Z93.0 Tracheostomy status; Z93.1 Gastrostomy status; Z87.820 Personal history of traumatic brain injury; Z68.21 Body mass index [BMI] 21.0-21.9, adult; I69.854 Hemiplegia and hemiparesis following other cerebrovascular disease affecting left non-dominant side; Z79.4 Long term (current) use of insulin; K94.23 Gastrostomy malfunction
CPT/HCPCS: 36415; 71045; 74018; 80048; 80053; 80076; 80202; 81001; 82272; 82948; 83605; 83735; 84100; 84484; 85018; 85025; 86886; 86900; 86901; 86920; 87040; 87081; 93005; 93971; 94002; 94003; C9113; J0360; J0692; J0696; J1200; J1644; J1815; J2060; J2250; J2543; J2765; J3010; J3370; J3475; J3490; J7060; P9016; Q0092

== ENCOUNTER 2022-06-02 00:10 | Inpatient (IN) | payer OTHER ==
[~2022-06-02] VITALS: Ht 172.7 cm; Wt 50.8 kg
[2022-06-02] VITALS (7 sets, daily range): BP systolic 102–133; BP diastolic 56–79
[~2022-06-02 00:10] MED LIST: DOCU-299 PO; FAMO-90 PO; FERR-212 PO; METF-346 PO; QUET200T PO; VALP-22 GT
--- NOTE | 2022-06-02 00:13 | NUR ---
JARROD ALS TO BED #3
[2022-06-02] MEDS ORDERED: NACL 0.9% 1,000 ML IV ONE ×2 (00:20→02:50)
--- NOTE | 2022-06-02 00:24 | NUR ---
PLACED PT ON PREVIOUS VENT SETTINGS FROM FACILITY. A/C 450, RR 16, PEEP 5, FIO2 40%. PT HAS PATENT AND SECURE PORTEX 8.
[2022-06-02] MEDS ORDERED: LORazepam 2 MG/ML VIAL IVP ONE (00:25)
[2022-06-02 01:50] LABS: BASOPHILS % (AUTO) 0.3 % (0.0-2.0); EOSINOPHILS # (AUTO) 0.2 K/uL (0-0.4); HEMATOCRIT 25.6 % (36-52); HEMOGLOBIN 8.4 g/dL (12.0-18.0); LYMPHOCYTES # (AUTO) 0.5 K/uL (2.0-11.5); LYMPHOCYTES % (AUTO) 5.4 % (20.5-51.1); MEAN CORPUSCULAR HEMOGLOBIN 28 pg (27-31); MEAN CORPUSCULAR HGB CONC 33 g/dL (33-37); MEAN CORPUSCULAR VOLUME 86.4 fL (80-94); MONOCYTES # (AUTO) 0.6 K/uL (0.8-1.0); MONOCYTES % (AUTO) 6.2 % (1.7-9.3); NEUTROPHILS # (AUTO) 7.7 K/uL (1.8-7.7); NEUTROPHILS % (AUTO) 86.1 % (42.2-75.2); PLATELET COUNT (AUTO) 250 K/uL (140-450); PROTHROMBIN TIME 10.6 secs (10.8-13.4); RED BLOOD CELL COUNT(AUTO) 2.96 MIL/uL (4.20-6.10); RED CELL DISTRIBUTION WIDTH 15.8 % (11.6-13.7)
[2022-06-02 02:23] LABS: ALBUMIN 1.8 g/dL (3.4-5.0); ANION GAP 9.4 (8-16); ASPARTATE AMINOTRANSFERASE 17 U/L (15-37); CARBON DIOXIDE 37.3 mmol/L (21-32); CHLORIDE 95 mmol/L (98-107); CREATININE 0.6 mg/dL (0.6-1.3); GFR ARICAN-AMERICAN 175 mL/min (>90); GLUCOSE 201 mg/dL (74-106); POTASSIUM 4.7 mmol/L (3.5-5.1); SODIUM SERUM 137 mmol/L (136-145); TOTAL BILIRUBIN 0.1 mg/dL (0.0-1.0); UREA NITROGEN, BLOOD 29 mg/dL (7-18)
[2022-06-02] MEDS ORDERED: LORazepam 2 MG/ML VIAL ONE (02:23)
[2022-06-02] MEDS ORDERED: PIPERACILLIN/TAZOBACTAM 3.375 GM in DEXTROSE 5% 50 ML IV ONE (02:40)
[2022-06-02] MEDS ORDERED: ACETAMINOPHEN 650 MG/20.3 ML UDC GT STA (02:46)
[2022-06-02] MEDS ORDERED: PIPERACILLIN/TAZOBACTAM 3.375 GM VIAL IV ONE (02:56)
[2022-06-02] MEDS ORDERED: ACETAMINOPHEN 160 MG/5 ML UDC ONE (02:56)
[2022-06-02 03:31] LABS: APPEARANCE,URINE CLEAR (CLEAR); BILIRUBIN,URINE NEGATIVE (NEGATIVE); BLOOD, URINE 2+ (NEGATIVE); COLOR,URINE YELLOW (YELLOW); LEUKOCYTE ESTERASE ,URINE NEGATIVE (NEGATIVE); NITRITE, URINE NEGATIVE (NEGATIVE); UGLUCOSE NEGATIVE (NEGATIVE)
[2022-06-02 03:42] LABS: RBC,URINE 0-5 /HPF (0-5); WBC,URINE 0-5 /HPF (0-5)
[2022-06-02] MEDS ORDERED: ONDANSETRON 4 MG/2 ML VIAL IVP PRN (03:55)
[2022-06-02] MEDS ORDERED: MAG SULF 2000 MG/WATER PREMIX 50 ML IV PRN (03:55)
[2022-06-02] MEDS ORDERED: KCL 20 MEQ/WATER INJ PREMIX 200 ML IV PRN (03:55)
[2022-06-02] MEDS ORDERED: VANCOMYCIN PER PHARMACY MC PRN (04:05)
[2022-06-02] MEDS ORDERED: CEFEPIME 2,000 MG in DEXTROSE 5% 100 ML IV SCH (04:05)
[2022-06-02] MEDS ORDERED: VANCOMYCIN 1GM/DEXT 5% PREMIX 200 ML IV SCH (04:30)
[2022-06-02] MEDS ORDERED: [UNRECOGNIZED DRUG - CODE] GT (05:47)
[2022-06-02] MEDS ORDERED: ASCO500T95 GT (05:47)
[2022-06-02] MEDS ORDERED: SLIDE SUBQ (06:20)
[2022-06-02 06:42] LABS: WHITE BLOOD COUNT (AUTO) 8.9 K/uL (4.8-10.8)
[2022-06-02] MEDS ORDERED: ACET-2619 GT (06:57)
[2022-06-02] MEDS ORDERED: ROPI0.2523 GT (07:01)
--- NOTE | 2022-06-02 07:38 | NUR ---
PATIENT TRANSFERRED TO [place] [id number]; REMOVED FROM VENTILATOR PLACED ON SUPPLEMENTAL OXYGEN VIA E-TANK AT 15 LPM TO AMBU BAG/HME/INLINE SUCTION CATHETER/TRACHEOSTOMY TUBE; BAG DEPRESSION EVERY SIX SECONDS; TOLERATED TRANSFER WELL WITHOUT ANY COMPLICATIONS SATURATION 98%
--- NOTE | 2022-06-02 07:44 | NUR ---
PM Rn endorsed wounds to receiving RN. Photos taken and documented.
--- NOTE | 2022-06-02 08:01 | NUR ---
Report given to receiving RN. JERRELL. Pt transported with RT.
--- NOTE | 2022-06-02 09:15 | NUR ---
PATIENT ATTEMPTING TO PULL OUT IV AND PULLING ON VENT TUBES WITH RIGHT ARM. PATIENT ALSO TRYING TO KICK STAFF WITH RIGHT LEG. DR. ROGERS CALLED AND NOTIFIED. ORDERS GIVEN FOR SOFT WRIST RESTRAINTS TO RIGHT UPPER EXTREMITY AND RIGHT LOWER EXTREMITY. RESTRAINTS APPLIED ORDERED. Little PETERSON RN.
[2022-06-02] MEDS ORDERED: INSULIN LISPRO SLIDING SCALE 100 UNITS/ML VIAL SUBQ PRN (09:20)
[2022-06-02] MEDS: VANCOMYCIN 750 MG in DEXTROSE 5% 250 ML IV SCH ×2 (09:34→19:57)
[2022-06-02] MEDS: VALPROIC ACID 250 MG/5 ML UDC GT SCH ×2 (10:19→20:09)
[2022-06-02] MEDS ORDERED: DEXTROSE 50% 50 ML SYR IVP PRN (10:20)
[2022-06-02] MEDS: BLOOD GLUCOSE MONITORING 1 DEV DEV FS SCH ×2 (11:57→18:11)
[2022-06-02] MEDS: INSULIN LISPRO SLIDING SCALE 100 UNITS/ML VIAL SUBQ PRN (11:57)
[2022-06-02] MEDS ORDERED: SKINTEGRITY HYDROGEL TP PRN (14:50)
[2022-06-02] MEDS ORDERED: FOAM DRESSING TP PRN (14:50)
--- NOTE | 2022-06-02 16:09 | NUR ---
WOUND CARE NOTE: PATIENT IS A 62 Y/O PT. ADMITTED WITH LEFT-SIDED TONIC-CLONIC MOVEMENTS AND BLOOD GLUCOSE 23. PT WITH G-TUBE, LEFT-SIDED HEMIPARESIS. TRACH AND GT SHELLEY STOMA SKIN DRY AND CLEAN. PT. ADMITTED WITH MULTIPLE PRESSURE INJURIES. LAST ADMISSION HX OF PRESSURE INJURY STAGE 3 MULTIPLE SITES. AND MULTIPLE NEWLY HEALES SCAR TISSUE TO BILATERAL LOWER LEGS, POTENTIAL SKIN BREAKS DUE TO PT. MOVEMENT/BEHAVIORS. RIGHT LOWER LEG ANKLE WITH SOFT RESTRAINS IN PLACE PLAN OF CARE DISCUSSED WITH PRIMARY RN CLAUDIA -MOISTURE ASSOCIATED SKIN DAMAGE(MASD) TO: B/L GROINS, TO SCROTAL, SKIN REDNESS. - SACRALCOCCYX OLD HEALED SCAR NON-BLANCHABLE REDNESS. - PRESSURE INJURY STAGE 3 TO RIGHT TROCHANTER 4X2X0.2 CM 100% PINK GRANULATING TISSUE, MOIST NO ODOR, WOUND EDGE ATTACHED SHELLEY WOUND DRY HEALED SCAR SKIN. - PRESSURE INJURY STAGE 2 LEFT TROCHANTER, 2X1.5X0.1CM WOUND BED 100% PINK COLOR, MOIST, NO ODOR -BILATERAL LOWER LEGS MULTIPLE NEWLY HEALED WOUNDS/PINK SCAR TISSUE. RIGHT TOES DRY ABRASION CLOSE WOUNDS -PRESSURE INJURY LEFT HEEL PREVIOUS UN-STAGEABLE TODAY DTI 3X2CM, WOUND BED IS 100%DARK PURPLE, DRY SKIN, NO ODOR, SHELLEY WOUND SKIN DRY INTACT RECOMMENDATIONS: -APPLY HYDRAGUARD TO B/L GROINS, TO SCROTAL BID AND PRN IF SOILING -PAINT TOES SCABS WITH BETADINE SWAP STICKS BID AND YOUTH DEVELOPMENT PROFESSIONAL -LEFT HEEL APPLY SOAKED 4X4 GAUZES BETADINE SOLUTION AND COVER WITH SUSANNA DRESSING QD AND PRN IF SOILIBNG - CLEANSE LEFT LEG AND RIGHT LEGS, RIGHT LATERAL ANKLE AND RIGH HIP WITH WOUND CLEANSING SOLUTION, APPLY HYDROGEL WITH ADAPTIC DRESSING COVER WITH COMPOSITE DRESSING QD AND PRN IF SOILING -APPLY FOAM DRESSING TO SACROCOCCYX Q3 DAYS AND PRN IF SOILING -POSITIONING: TURN AND REPOSITION PATIENT Q 2H OR SOONER USE PILLOWS TO KEEP BONY PROMINENCES FROM DIRECT CONTACT WITH SURFACES USE REPOSITIONING WEDGES TO PROVIDE 30-DEGREE ANGLE FOR SIDE LYING POSITIONS OFFLOADING OR FOAM DRESSING TO ALL TUBING TO PREVENT MEDICAL DEVICES RELATED PRESSURE INJURY -RE-EVALUATING AND MANAGING INCONTINENCE MONITOR SKIN CONDITION DURING POSITION CHANGE DO NOT MASSAGE REDNESS, BONY PROMINENCES, DO NOT USE DONUT-TYPE DEVICES FREQUENT SHELLEY-CARE AND PROVIDE BARRIER CREAMS PRN IF SOILING MOISTURE CONTROL BY OFFER BED THEODORE/URINAL /ABSORBENT PAD TO WICK AND HOLD MOISTURE. KEEP SKIN DRY AND PROTECT FROM FRICTION -MANAGE FRICTION/SHEAR/MOBILITY KEEP HOB AT THE LOWEST LEVEL OF ELEVATION NO MORE THAN 30 DEGREES UNLESS OTHERWISE CONTRAINDICATED USE LIFT SHEET OR TRANSFER DEVICE TO MOVE PATIENT AND PREVENT LATERAL SHEER. CONSIDER TRAPEZE IF APPROPRIATE PROTECT HEELS, ELBOWS BONY PROMINENCES WITH SKIN BERRIES OR FOAM DRESSING IF EXPOSED TO FRICTION OFFLOAD BILATERAL HEELS BY PLACING PILLOWS UNDER CALVES AT ALL TIMES, UNLESS OTHERWISE CONTRAINDICATED -PRESSURE REDISTRIBUTION SURFACE THERAPY MERVIN ISOFLEX VIRI MATTRESS -NUTRITION: PLEASE FOLLOW RD RECOMMENDATIONS AND OFFER NUTRITION SUPPLEMENTS IF ORDERED. Addendum: 06/02/22 at 1634 by Yarely Lindsay RN (Grace) WOUND PHOTOS OBTAINED AT ED, UNABLE TO PRINT, PENDING INK FOR PRINTER AT THIS TIME.
[2022-06-02] MEDS: GAUZE TP SCH (17:00)
[2022-06-02] MEDS: FOAM DRESSING TP SCH (17:00)
[2022-06-02] MEDS: FERROUS SULFATE 300 MG/5 ML UDC GT SCH (20:09)
[2022-06-02] MEDS: FAMOTIDINE 20 MG TAB GT SCH (20:10)
[2022-06-02] MEDS: QUEtiapine FUMARATE 100 MG TAB GT SCH (20:10)
[2022-06-03] VITALS (7 sets, daily range): BP systolic 102–143; BP diastolic 69–85
[2022-06-03] MEDS: PIPERACILLIN/TAZOBACTAM 3.375 GM in DEXTROSE 5% 50 ML IV SCH ×4 (00:55→17:51)
[2022-06-03] MEDS: BLOOD GLUCOSE MONITORING 1 DEV DEV FS SCH ×4 (00:55→17:50)
[2022-06-03] MEDS: INSULIN LISPRO SLIDING SCALE 100 UNITS/ML VIAL SUBQ PRN ×2 (00:56→07:28)
[2022-06-03] MEDS: HYDRAGUARD CREAM TP SCH ×2 (01:01→13:03)
[2022-06-03] MEDS ORDERED: PIPERACILLIN/TAZOBACTAM 3.375 GM VIAL IV ONE (05:39)
--- NOTE | 2022-06-03 06:49 | NUR ---
PATIENT HAS BEEN SCREENED AND CATEGORIZED HIGH NUTRITION RISK. PATIENT WILL BE SEEN WITHIN 1-2 DAYS OF ADMISSION. 06/03/2212 REFERRAL RECEIVED FOR TUBE FEEDING, PRESSURE INJURY, UNHEALED WOUND, AND UZMA 12 OR [address]
--- NOTE | 2022-06-03 07:42 | NUR ---
ENDORSED TO DAY RN FOR CONTINUITY OF CARE. PT IS STABLE.
[2022-06-03] MEDS: VANCOMYCIN 750 MG in DEXTROSE 5% 250 ML IV SCH ×2 (08:00→20:39)
--- NOTE | 2022-06-03 08:38 | NUR ---
RECEIVED MISSY VIASYS CAMARA VENTILATOR PLUGGED INTO RED OUTLET TOLERATING WELL WITHOUT COMPLICATIONS NOTED TO A PORTEX DCT #8 AIRWAY SECURED WITH A TAM TRACH TIE CUFF PRESSURE CHECKED NOTED AMBU BAG AT BEDSIDE STABLE GOOD CHEST RISE DEEP TRACHEAL SUCTION FOR COPIOUS THICK YELLOW SECRETIONS AIRWAY PATENT
[2022-06-03 08:45] LABS: BASOPHILS % (AUTO) 0.2 % (0.0-2.0); EOSINOPHILS # (AUTO) 0.2 K/uL (0-0.4); HEMATOCRIT 26.7 % (36-52); HEMOGLOBIN 8.9 g/dL (12.0-18.0); LYMPHOCYTES # (AUTO) 0.5 K/uL (2.0-11.5); LYMPHOCYTES % (AUTO) 5.4 % (20.5-51.1); MEAN CORPUSCULAR HEMOGLOBIN 28 pg (27-31); MEAN CORPUSCULAR HGB CONC 33 g/dL (33-37); MEAN CORPUSCULAR VOLUME 85.5 fL (80-94); MONOCYTES # (AUTO) 0.6 K/uL (0.8-1.0); MONOCYTES % (AUTO) 6.9 % (1.7-9.3); NEUTROPHILS # (AUTO) 7.8 K/uL (1.8-7.7); NEUTROPHILS % (AUTO) 85.5 % (42.2-75.2); PLATELET COUNT (AUTO) 261 K/uL (140-450); RED BLOOD CELL COUNT(AUTO) 3.12 MIL/uL (4.20-6.10); RED CELL DISTRIBUTION WIDTH 16.3 % (11.6-13.7); WHITE BLOOD COUNT (AUTO) 9.1 K/uL (4.8-10.8)
[2022-06-03 08:57] LABS: MAGNESIUM 1.7 mg/dL (1.8-2.4); PHOSPHORUS 3.7 mg/dL (2.5-4.9)
[2022-06-03 08:59] LABS: ANION GAP 6.4 (8-16); CARBON DIOXIDE 38.5 mmol/L (21-32); CREATININE 0.6 mg/dL (0.6-1.3); POTASSIUM 3.9 mmol/L (3.5-5.1)
[2022-06-03] MEDS: rOPINIRole 0.25 MG TAB GT SCH (09:29)
[2022-06-03] MEDS: FAMOTIDINE 20 MG TAB GT SCH ×2 (09:29→20:39)
[2022-06-03] MEDS: FERROUS SULFATE 300 MG/5 ML UDC GT SCH ×2 (09:29→20:39)
[2022-06-03] MEDS: QUEtiapine FUMARATE 100 MG TAB GT SCH ×2 (09:39→20:39)
[2022-06-03] MEDS: VALPROIC ACID 250 MG/5 ML UDC GT SCH ×2 (09:42→20:39)
[2022-06-03] MEDS: SKINTEGRITY HYDROGEL TP SCH (09:42)
--- NOTE | 2022-06-03 11:58 | NUR ---
DC PLANNING PT TRAYC- VENT DEPENDENT. OUTREACHED TO PT'S SISTER ALIA WERNER, TO GATHER COLLATERAL INFORMATION. ALIA REPORTS NO CHANGES FROM PTS LAST VISIT. ALIA REPORTS PT IS IN SUBACUTE CARE WITH [facility], ADMISSION DATE; 04/11/22. ALIA REPORTS PATIENT IS A NEW TRAYC TO VENT PT HE WAS COMPLETELY INDEPENDENT PRIOR TO BEING TRAYC'D IN . ALIA REPORTS PATIENT PREVIOUSLY LIVED AT HOME WITH HER AND THEIR MOTHER. PTS DAUGHTER YUNI GLORIA, RESIDES IN [place] HOWEVER, IS REPORTED TO BE ACTIVE IN PT'S CARE. PT IS CURRENTLY BED BOUND AND TOTAL CARE AT FACILITY. ALIA REPORTS PT HAS HX OF PULLING ON VENT AND REQUIRES A SITTER AT FACILITY. ALIA REPORTS DC PLAN IS FOR PT TO RETURN TO [facility] ONCE MEDICALLY STABLE. Addendum: 06/03/22 at 1159 by Timothy IRELAND Amended: Links added.
[2022-06-03] MEDS: GAUZE TP SCH (13:03)
--- NOTE | 2022-06-03 15:50 | NUR ---
06/03/22 RD INITIAL ASSESSMENT COMPLETED PLEASE REFER TO NUTRITION ASSESSMENT UNDER CARE ACTIVITY FOR ESTIMATED NUTRITIONAL NEEDS. 1. RECOMMEND GLUCERNA 1.2 WITH A GOAL RATE OF 80ML/HR WITH FWF 150ML Q6H TOLERATED -PROVIDES TOTAL VOLUME 1920ML, 2304KCAL, 115GM PROTEIN, AND 2145ML FREE WATER, MEETING 100% OF ESTIMATED ENERGY NEEDS 2. RECOMMEND PROSOURCE BID FOR WOUND HEALING -WILL PROVIDE EXTRA 120KCAL AND 30GM PROTEIN DAILY 3. RD TO FOLLOW-UP 7 DAYS, LOW RISK NELLIE ERICKSON RD
--- NOTE | 2022-06-03 17:38 | NUR ---
AWAKE SLIGHTLY IRRITABLE GOOD CHEST RISE DEEP TRACHEAL SUCTION FOR SMALL THICK YELLOW/GREEN SECRETIONS AIRWAY PATENT
--- NOTE | 2022-06-03 19:30 | NUR ---
RECEIVED REPORT FROM DAY SHIFT NURSE. NO S/S OF DISTRESS. CALL LIGHT IN REACH. ALL SAFETY MEASURES IN PLACE. TUBE FEEDING RUNNING PER MD ORDER. TRACH TO VENT
--- NOTE | 2022-06-03 20:00 | NUR ---
PT REPOSITIONED. PT SLIDING SELF DOWN TOWARDS FOOT OF BED. PT PULLING ON LINES WHEN UNRESTRAINED
[2022-06-04] VITALS: BP 139/62
[2022-06-04] MEDS: BLOOD GLUCOSE MONITORING 1 DEV DEV FS SCH ×5 (00:03→23:06)
[2022-06-04] MEDS: INSULIN LISPRO SLIDING SCALE 100 UNITS/ML VIAL SUBQ PRN ×2 (00:06→13:57)
[2022-06-04] MEDS: PIPERACILLIN/TAZOBACTAM 3.375 GM in DEXTROSE 5% 50 ML IV SCH ×4 (00:29→17:14)
--- NOTE | 2022-06-04 00:30 | NUR ---
PT CLEANED AND CHANGED. NO S/S OF DISTRESS. IV FLUIDS RUNNING PER MD ORDER. TUBE FEEDING CHANGED AND RUNNING
[2022-06-04] MEDS: HYDRAGUARD CREAM TP SCH ×2 (01:41→13:18)
[2022-06-04 04:00] VITALS: BP 141/80
--- NOTE | 2022-06-04 04:20 | NUR ---
PT REPOSITIONED. NO S/S OF DISTRESS. ALL SAFETY MEASURES IN PLACE. TUBE FEEDING RUNNING PER MD ORDER
--- NOTE | 2022-06-04 07:00 | NUR ---
ENDORSED PT TO DAY SHIFT NURSE.
[2022-06-04 07:25] LABS: BASOPHILS % (AUTO) 0.3 % (0.0-2.0); EOSINOPHILS # (AUTO) 0.3 K/uL (0-0.4); EOSINOPHILS % (AUTO) 4.9 % (0.0-4.0); HEMATOCRIT 27.7 % (36-52); HEMOGLOBIN 9.3 g/dL (12.0-18.0); LYMPHOCYTES # (AUTO) 0.5 K/uL (2.0-11.5); LYMPHOCYTES % (AUTO) 8.1 % (20.5-51.1); MEAN CORPUSCULAR HEMOGLOBIN 29 pg (27-31); MEAN CORPUSCULAR HGB CONC 34 g/dL (33-37); MEAN CORPUSCULAR VOLUME 85.4 fL (80-94); MONOCYTES # (AUTO) 0.6 K/uL (0.8-1.0); MONOCYTES % (AUTO) 9.2 % (1.7-9.3); NEUTROPHILS # (AUTO) 5.1 K/uL (1.8-7.7); NEUTROPHILS % (AUTO) 77.5 % (42.2-75.2); PLATELET COUNT (AUTO) 266 K/uL (140-450); RED BLOOD CELL COUNT(AUTO) 3.24 MIL/uL (4.20-6.10); WHITE BLOOD COUNT (AUTO) 6.6 K/uL (4.8-10.8)
[2022-06-04 07:29] LABS: ANION GAP 9.3 (8-16); CARBON DIOXIDE 36.9 mmol/L (21-32); CREATININE 0.6 mg/dL (0.6-1.3); POTASSIUM 4.2 mmol/L (3.5-5.1)
[2022-06-04 07:41] LABS: MAGNESIUM 1.8 mg/dL (1.8-2.4); PHOSPHORUS 3.7 mg/dL (2.5-4.9)
--- NOTE | 2022-06-04 07:50 | NUR ---
RECEIVED ON A VIASYS CAMARA VENTILATOR PLUGGED INTO RED OUTLET TOLERATING WITHOUT ADVERSE REACTIONS NOTED TO A PORTEX DCT #8 AIRWAY SECURED WITH A TAM TRACH TIE CUFF PRESSURE CHECKED NOTED AMBU BAG AT BEDSIDE GOOD CHEST RISE DEEP TRACHEAL SUCTION FOR MODERATE THICK YELLOW/GREEN SECRETIONS AIRWAY PATENT
[2022-06-04 08:00] VITALS: BP 141/70
[2022-06-04] MEDS: VANCOMYCIN 750 MG in DEXTROSE 5% 250 ML IV SCH ×2 (08:00→22:17)
[2022-06-04] MEDS: VALPROIC ACID 250 MG/5 ML UDC GT SCH ×2 (09:11→22:17)
[2022-06-04] MEDS: SKINTEGRITY HYDROGEL TP SCH (09:12)
[2022-06-04] MEDS: FERROUS SULFATE 300 MG/5 ML UDC GT SCH ×2 (09:12→22:18)
[2022-06-04] MEDS: QUEtiapine FUMARATE 100 MG TAB GT SCH ×2 (09:12→22:19)
[2022-06-04] MEDS: FAMOTIDINE 20 MG TAB GT SCH ×2 (09:12→22:18)
[2022-06-04] MEDS: rOPINIRole 0.25 MG TAB GT SCH (09:12)
[2022-06-04] MEDS: MORPHINE SULFATE 4 MG/ML SYR IVP PRN ×2 (09:28→16:55)
--- NOTE | 2022-06-04 10:53 | NUR ---
NO EVIDENCE FOR PULMONARY DISTRESS NOTED EQUAL CHEST RISE AIRWAY PATENT
[2022-06-04 12:00] VITALS: BP 131/85
[2022-06-04] MEDS: GAUZE TP SCH (13:18)
[2022-06-04 16:00] VITALS: BP 129/87
--- NOTE | 2022-06-04 16:06 | NUR ---
RD RECEIVED A CALL FROM RN REGARDING PT HAVING DIARRHEA SINCE LAST NIGHT. RD RECOMMENDED SWITCHING TF FROM GLUCERNA 1.2 TO VITAL AF 1.2 @ 70ML/HR WITH CHIOMA BID. ALSO RECOMMENDED CHIOMA BID TO PROMOTE WOUND HEALING. WITH CHIOMA BID, PT WILL RECEIVE 100% OF ESTIMATED ENERGY NEEDS. PROVIDED TWO BAGS OF BANATROL FOR DIARRHEA. YAMILKA WILL CONTINUE TO MONITOR. NELLIE ERICKSON RD
--- NOTE | 2022-06-04 19:30 | NUR ---
1930 PM OPENING NOTES HAND-OFF REPORT RECEIVED FROM OFF GOING NURSE. PT RECEIVED AWAKE AND TRACKING. VENT TO TRACH. FI02 30%, TIDAL VOLUME 450, RATE 16, AND PEEP 5. GTUBE VITAL AF 1.2 ADRIANNE 70 ML/H. H20 WATER FLUSH 150 ML/Q6H. IVF NS 30 ML/HR. FRANK TO GRAVITY FLOW CONCENTRATED VICENTE URINE MILDLY CLOUDED. NO DIARRHEA REPORT SINCE GLUCERNA 1.2 DISCONTINUED PER HAND-OFF REPORT. NO SEIZURE ACTIVITY REPORTED. PADS REMAIN PADDED X4. BED IN LOWEST POSITION WITH WHEELS LOCKED. RIGHT SIDED SOFT RESTRAINTS WRIST AND ANKLE. TELE/SR. ACCU-CHECK WITH COVERAGE PER PROTOCOL. PLAN BACK TO SNF WHEN ORDERED. CONT TO MONITOR AND PROVIDE SAFE ENVIRONMENT.
[2022-06-04 20:00] VITALS: BP 110/78
[2022-06-05] VITALS: BP 126/72
[2022-06-05] MEDS: PIPERACILLIN/TAZOBACTAM 3.375 GM in DEXTROSE 5% 50 ML IV SCH ×2 (00:51→06:03)
[2022-06-05] MEDS: INSULIN LISPRO SLIDING SCALE 100 UNITS/ML VIAL SUBQ PRN ×2 (01:29→06:12)
[2022-06-05] MEDS: HYDRAGUARD CREAM TP SCH ×2 (01:32→16:42)
[2022-06-05 04:00] VITALS: BP 128/80
[2022-06-05] MEDS: BLOOD GLUCOSE MONITORING 1 DEV DEV FS SCH ×3 (06:03→23:59)
[2022-06-05 07:17] LABS: BASOPHILS % (AUTO) 0.4 % (0.0-2.0); EOSINOPHILS # (AUTO) 0.4 K/uL (0-0.4); EOSINOPHILS % (AUTO) 7.8 % (0.0-4.0); HEMATOCRIT 24.9 % (36-52); HEMOGLOBIN 8.2 g/dL (12.0-18.0); LYMPHOCYTES # (AUTO) 0.5 K/uL (2.0-11.5); LYMPHOCYTES % (AUTO) 9.7 % (20.5-51.1); MEAN CORPUSCULAR HEMOGLOBIN 28 pg (27-31); MEAN CORPUSCULAR HGB CONC 33 g/dL (33-37); MEAN CORPUSCULAR VOLUME 85.8 fL (80-94); MONOCYTES # (AUTO) 0.5 K/uL (0.8-1.0); MONOCYTES % (AUTO) 9.7 % (1.7-9.3); NEUTROPHILS # (AUTO) 3.7 K/uL (1.8-7.7); NEUTROPHILS % (AUTO) 72.4 % (42.2-75.2); PLATELET COUNT (AUTO) 255 K/uL (140-450); RED CELL DISTRIBUTION WIDTH 16.2 % (11.6-13.7); WHITE BLOOD COUNT (AUTO) 5.1 K/uL (4.8-10.8)
[2022-06-05 07:25] LABS: ANION GAP 10.2 (8-16); CARBON DIOXIDE 34.1 mmol/L (21-32); CREATININE 0.6 mg/dL (0.6-1.3); POTASSIUM 4.3 mmol/L (3.5-5.1)
[2022-06-05 07:36] LABS: MAGNESIUM 1.9 mg/dL (1.8-2.4); PHOSPHORUS 4.1 mg/dL (2.5-4.9)
[2022-06-05 08:00] VITALS: BP 110/78
[2022-06-05] MEDS: SKINTEGRITY HYDROGEL TP SCH (09:00)
[2022-06-05] MEDS: FERROUS SULFATE 300 MG/5 ML UDC GT SCH ×2 (09:00→20:11)
[2022-06-05] MEDS: rOPINIRole 0.25 MG TAB GT SCH (09:00)
[2022-06-05] MEDS: FOAM DRESSING TP SCH (09:00)
[2022-06-05] MEDS: QUEtiapine FUMARATE 100 MG TAB GT SCH ×2 (09:00→20:10)
[2022-06-05] MEDS: FAMOTIDINE 20 MG TAB GT SCH ×2 (09:00→20:11)
[2022-06-05] MEDS: VALPROIC ACID 250 MG/5 ML UDC GT SCH ×2 (09:00→20:16)
[2022-06-05] MEDS ORDERED: VALP-22 GT (10:22)
--- NOTE | 2022-06-05 11:30 | NUR ---
06/05/22 RD FOLLOW UP COMPLETED PLEASE REFER TO NUTRITION ASSESSMENT UNDER CARE ACTIVITY FOR ESTIMATED NUTRITIONAL NEEDS. 1. RECOMMEND SWITCHING BACK TO GLUCERNA 1.2 WITH A GOAL RATE OF 70ML/HR D/T INCREASED BLOOD SUGAR -FWF: 150ML Q6H OR PER MD -PROVIDES TOTAL VOLUME 1680ML, 2016KCAL, 101GM PROTEIN, AND 1952ML FREE WATER 2. RECOMMEND CHIOMA BID FOR WOUND HEALING -WITH CHIOMA BID, PT WILL RECEIVE 100% OF ESTIMATED ENERGY NEEDS 3. MONITOR GI SYMPTOMS AND BLOOD GLUCOSE LEVELS -RECOMMEND BANATROL TID IF PT HAS DIARRHEA 4. RD TO FOLLOW-UP 3-5 DAYS, MODERATE RISK NELLIE ERICKSON RD
[2022-06-05 12:00] VITALS: BP 109/82
--- NOTE | 2022-06-05 13:50 | NUR ---
RECEIVED PT FROM TELE DUE TO STAFFING PT TRACE TO VENT . AC/PRVC 30% FIO2 RATE 16 PEEP PF 5.SKIN DRY WARM TO TOUCH HAND SACRAL PRESSURE WOUND DRESSING DRY AND INTACT .GT TUBE FEEDING FRANK CATH . EXTREAMITIES STIFFED HE ON RESTRAIN RT AM AND RT LEG.
--- NOTE | 2022-06-05 14:30 | NUR ---
0230 PM CLOSING NOTES PT TRANSFERRED TO ICU. HAND-OFF REPORT TO TOMAS. ENDORSED NEW ORDERS FOR GTUBE FEEDING PER DIETARY RECOMMENDATIONS. NOTIFIED SEISMOLOGY TECHNICAL OFFICER MD FOR DR. BRYANT. (KEN) ROSA MARIA, REVIEWED AND APPROVED "DISCONTINUE VITAL AND RETURN TO GLUCERNA 1.2 INITIAL RATE 20ML/H INCREASING 10 MLS/ PER PROTOCOL TILL 70 MLS REACHED GOAL. BENETROL TID PRN FOR DIARRHEA AND CHIOMA BID. FREE WATER FLUSH 150 ML Q 6 HR. PT TRANSFERRED TO ICU. HAND-OFF REPORT TO TOMAS. ENDORSED NOON ACCU CHECK NOT OBTAINED. LAST ACCU CHECK 304 AND 243 WITH COVERAGE PER PROTOCOL S/S. SEE EMAR. RELINQUISHED CARE OF PT AT THIS TIME.
[2022-06-05 16:00] VITALS: BP 128/74
[2022-06-05] MEDS: GAUZE TP SCH (16:42)
--- NOTE | 2022-06-05 16:45 | NUR ---
Assumed care of pt. Pt awake, resistive to care. Noted IV catheter pulled from pt, catheter tip intact, bleeding controlled. New IV 22G placed to left hand, no infiltration noted. Pt with restraints to right hand and right leg for safety, noted pt banging and hitting right side rail, removing seizure precaution padding, and hitting staff. GT with feeding. Petersen in place draining urine to gravity.
--- NOTE | 2022-06-05 19:25 | NUR ---
Endorsed plan of care to Evangelist MONSON.
[2022-06-05 20:00] VITALS: BP 137/78
--- NOTE | 2022-06-05 20:00 | NUR ---
RECEIVED REPORT FROM AM SHIFT RN ABEBA. PT A&O X0. OPENS EYES SPONTANEOUSLY. VENT SETTINGS FI02 30% VT 450 RATE 16 PEEP 5. PEG TUBE PRESENT TO LEFT UPPER QUADRANT OF THE ABDOMEN. GLUCERNA 1.2 20 ML/HR FLUSH 150ML Q6H. FEEDING RATE GOAL 70 ML/HR PER ENDORSEMENT. SR TO BEDSIDE MONITOR. 22 GAUGE TO LEFT HAND. NS RUNNING AT 30 ML/HR. ON SEIZURE PRECAUTION. PADS TO SIDE RAILS IN PLACE.
--- NOTE | 2022-06-05 22:00 | NUR ---
ALL PM MEDS GIVEN.
[2022-06-05] MEDS: MORPHINE SULFATE 4 MG/ML SYR IVP PRN (23:47)
[2022-06-06] VITALS (12 sets, daily range): BP systolic 110–167; BP diastolic 64–86
--- NOTE | 2022-06-06 | NUR ---
PRN MORPHINE GIVEN. MONITORING FOR EFFECTIVENESS.
--- NOTE | 2022-06-06 00:10 | NUR ---
PRN MORPHINE EFFECTIVE PT SEEMS MORE RELAXED.
[2022-06-06] MEDS: HYDRAGUARD CREAM TP SCH ×2 (01:00→12:57)
--- NOTE | 2022-06-06 02:30 | NUR ---
PT RESTING AT THIS TIME. BREATHING EVEN AND UNLABORED.
--- NOTE | 2022-06-06 04:00 | NUR ---
PT WITH SMALL BM. SOFT BROWN IN COLOR. CLEANED AND REPOSITIONED.
[2022-06-06] MEDS: BLOOD GLUCOSE MONITORING 1 DEV DEV FS SCH ×3 (06:22→17:01)
[2022-06-06 06:23] LABS: MAGNESIUM 1.7 mg/dL (1.8-2.4); PHOSPHORUS 3.8 mg/dL (2.5-4.9)
[2022-06-06 06:29] LABS: ANION GAP 6.2 (8-16); CARBON DIOXIDE 35.6 mmol/L (21-32); CREATININE 0.7 mg/dL (0.6-1.3); POTASSIUM 3.8 mmol/L (3.5-5.1)
[2022-06-06 06:34] LABS: BASOPHILS % (AUTO) 0.7 % (0.0-2.0); EOSINOPHILS # (AUTO) 0.2 K/uL (0-0.4); EOSINOPHILS % (AUTO) 4.3 % (0.0-4.0); HEMOGLOBIN 8.8 g/dL (12.0-18.0); LYMPHOCYTES # (AUTO) 0.7 K/uL (2.0-11.5); LYMPHOCYTES % (AUTO) 12.5 % (20.5-51.1); MEAN CORPUSCULAR HEMOGLOBIN 28 pg (27-31); MEAN CORPUSCULAR HGB CONC 32 g/dL (33-37); MEAN CORPUSCULAR VOLUME 85.8 fL (80-94); MONOCYTES # (AUTO) 0.6 K/uL (0.8-1.0); MONOCYTES % (AUTO) 11.3 % (1.7-9.3); NEUTROPHILS % (AUTO) 71.2 % (42.2-75.2); PLATELET COUNT (AUTO) 263 K/uL (140-450); RED BLOOD CELL COUNT(AUTO) 3.15 MIL/uL (4.20-6.10); RED CELL DISTRIBUTION WIDTH 16.5 % (11.6-13.7); WHITE BLOOD COUNT (AUTO) 5.6 K/uL (4.8-10.8)
--- NOTE | 2022-06-06 07:00 | NUR ---
RECEIVED PT ON PRVC 450,16,+5, 30%. VENT WHEELS ARE LOCKED, PLUGGED INTO RED OUTLET, AMBUBAG AT BEDSIDE, ALARMS ARE SET AND AUDIBLE. PT SATURATION AT TIME WAS 98%. EQUAL CHEST RISE. PT RESTING. WILL CONTINUE TO MONITOR.
--- NOTE | 2022-06-06 07:14 | NUR ---
REPORT GIVEN TO AM SHIFT ERMIAS US.
--- NOTE | 2022-06-06 07:20 | NUR ---
Received report on pt. Pt awake, trach to vent, in no signs of pain or distress. Pt with right wrist and right foot restraints for safety. GT with glucerna tube feeding at 40 ml, tolerating well. Petersen draining yellow urine to gravity.
--- NOTE | 2022-06-06 09:04 | NUR ---
Dr. Mendieta informed regarding pt behavior, no new orders made.
[2022-06-06] MEDS: FERROUS SULFATE 300 MG/5 ML UDC GT SCH ×2 (09:11→20:31)
[2022-06-06] MEDS: VALPROIC ACID 250 MG/5 ML UDC GT SCH ×2 (09:11→20:31)
[2022-06-06] MEDS: FAMOTIDINE 20 MG TAB GT SCH ×2 (09:11→20:31)
[2022-06-06] MEDS: QUEtiapine FUMARATE 100 MG TAB GT SCH ×2 (09:12→20:31)
[2022-06-06] MEDS: SKINTEGRITY HYDROGEL TP SCH (09:12)
[2022-06-06] MEDS: MORPHINE SULFATE 4 MG/ML SYR IVP PRN ×3 (09:13→16:50)
[2022-06-06] MEDS: rOPINIRole 0.25 MG TAB GT SCH (10:45)
--- NOTE | 2022-06-06 10:45 | NUR ---
Dr. Mendieta rounding on pt
[2022-06-06] MEDS: INSULIN LISPRO SLIDING SCALE 100 UNITS/ML VIAL SUBQ PRN ×2 (11:47→23:58)
[2022-06-06] MEDS ORDERED: LORazepam 1 MG TAB PO PRN (12:30)
[2022-06-06] MEDS: GAUZE TP SCH (12:57)
--- NOTE | 2022-06-06 13:00 | NUR ---
Patient off unit to CT via continuous monitoring and O2, accompanied by RN, RT, and communications technologist.
--- NOTE | 2022-06-06 13:00 | NUR ---
TRANSFERRED PT TO AND FROM CT SAFELY. RETURNED TO CURRENT VENT SETTING OF PRVC 450, 16,+5,30%. WILL CONTINUE TO MONITOR.
--- NOTE | 2022-06-06 13:40 | NUR ---
Pt return from CT to room and situated to bed. Pt currently calm.
--- NOTE | 2022-06-06 16:35 | NUR ---
Pt noted with hitting side rail and kicking with right extremities while being on soft restraints on both limbs. Pt occasionally shakes head "no" when being educated and instructed to stop with risk of injury. PRN meds given to calm pt, but pt is still uncooperative with care.
--- NOTE | 2022-06-06 17:21 | NUR ---
Pt noted biting at pulse ox, hitting side rail with right leg and right arm while restrained. Repositioned pt in bed but pt grabbed side rail and pulled himself down to continue hitting rail with extremities despite education and instruction. Pt uncooperative with care.
--- NOTE | 2022-06-06 18:30 | NUR ---
Pt noted trying to climb out of bed while restrained despite PRN medication for agitation. Resituated pt to bed and called MD Dr. Lora and informed him regarding situation. New orders made. Placed mittens on right hand with soft wrist restraint.
[2022-06-06] MEDS: PIPERACILLIN/TAZOBACTAM 4.5 GM in DEXTROSE 5% 100 ML IV SCH (18:47)
[2022-06-06] MEDS: LORazepam 2 MG/ML VIAL IVP PRN (18:47)
--- NOTE | 2022-06-06 19:20 | NUR ---
Plan of care endorsed to Evangelist MONSON.
--- NOTE | 2022-06-06 20:00 | NUR ---
RECEIVED REPORT FROM AM SHIFT ERMIAS US. A&O X1. ABLE TO OPEN EYES SPONTANEOUSLY. UNABLE TO ANSWER GENERAL QUESTIONS. VENT SETTINGS FI02 26 VIT 450 RATE 16 PEEP 2. ON ROOM AIR. ACTIVE BOWEL SOUNDS. PEG TUBE TO LEFT UPPER QUADRANT FUNCTIONING WELL. FRANK CATHETER INTACT AND FLOWING WELL. ST TO BEDSIDE MONITOR AT THIS TIME. 22 GAUGE TO LEFT HAND. FLACC 0.
--- NOTE | 2022-06-06 20:08 | NUR ---
PT TRANSPORTED TO CT AND BACK TO ICU4 W/ NO ADVERSE EVENTS PT TOLERATED TRANSPORT WELL VENT WAS PLUGGED INTO RED OUTLET W/ ALARMS ON AND AUDIBLE AMBU REPLACED AT BEDSIDE WILL CONTINUE TO MONITOR
[2022-06-07] VITALS: BP 120/85
[2022-06-07] MEDS: HYDRAGUARD CREAM TP SCH ×2 (01:26→13:09)
[2022-06-07 04:00] VITALS: BP 120/85
[2022-06-07] MEDS: LORazepam 2 MG/ML VIAL IVP PRN ×2 (06:00→18:00)
[2022-06-07 06:07] LABS: BASOPHILS % (AUTO) 0.1 % (0.0-2.0); EOSINOPHILS # (AUTO) 0.2 K/uL (0-0.4); EOSINOPHILS % (AUTO) 1.8 % (0.0-4.0); HEMOGLOBIN 8.2 g/dL (12.0-18.0); LYMPHOCYTES # (AUTO) 0.4 K/uL (2.0-11.5); LYMPHOCYTES % (AUTO) 4.5 % (20.5-51.1); MEAN CORPUSCULAR HEMOGLOBIN 29 pg (27-31); MEAN CORPUSCULAR HGB CONC 34 g/dL (33-37); MEAN CORPUSCULAR VOLUME 85.2 fL (80-94); MONOCYTES # (AUTO) 0.6 K/uL (0.8-1.0); MONOCYTES % (AUTO) 6.1 % (1.7-9.3); NEUTROPHILS # (AUTO) 8.3 K/uL (1.8-7.7); PLATELET COUNT (AUTO) 242 K/uL (140-450); RED BLOOD CELL COUNT(AUTO) 2.82 MIL/uL (4.20-6.10); RED CELL DISTRIBUTION WIDTH 16.4 % (11.6-13.7); WHITE BLOOD COUNT (AUTO) 9.5 K/uL (4.8-10.8)
[2022-06-07 06:32] LABS: ANION GAP 6.5 (8-16); CARBON DIOXIDE 35.2 mmol/L (21-32); CREATININE 0.7 mg/dL (0.6-1.3); POTASSIUM 3.7 mmol/L (3.5-5.1)
[2022-06-07 06:37] LABS: PHOSPHORUS 3.5 mg/dL (2.5-4.9)
[2022-06-07 06:45] LABS: NEUTROPHILS % (AUTO) 87.5 % (42.2-75.2)
[2022-06-07] MEDS: PIPERACILLIN/TAZOBACTAM 4.5 GM in DEXTROSE 5% 100 ML IV SCH ×4 (06:57→12:10)
[2022-06-07] MEDS: BLOOD GLUCOSE MONITORING 1 DEV DEV FS SCH ×4 (06:58→18:15)
--- NOTE | 2022-06-07 07:15 | NUR ---
RECEIVED PT ON PRVC 450,16,+5,30%. VENT PLUGGED INTO RED OUTLET, WHEELS LOCKED AND AMBUBAG AT BEDSIDE, ALARMS ARE SET AND AUDIBLE.
--- NOTE | 2022-06-07 07:20 | NUR ---
REPORT GIVEN TO AM SHIFT ERMIAS BARCLAY.
--- NOTE | 2022-06-07 07:21 | NUR ---
RECEIVED BEDSIDE REPORT FROM CARLOS PATHOLOGY COLLECTOR RN, FOR CONTINUITY OF CARE. PT A/OX0, LETHARGIC, PERRLA. TRACH TO VENT AC/PRVC 28%/VT 450/RR 16/PEEP 5. SR ON MONITOR. 22G IV TO L HAND INFUSING ZOSYN AT 200ML/HR. PEG TUBE IN PLACE TO FEEDING, GLUCERNA 70ML/HR WITH FWF 150ML Q6H. F/C TO GRAVITY. GENERALIZED WEAKNESS. MITTEN RESTRAINT TO R HAND AND SOFT RESTRAINT IN PLACE TO R ANKLE, NO S/SX OF INJURY. BED LOCKED AND IN LOWEST POSITION. Addendum: 06/07/22 at 1212 by Tonia Ziegler RN SEIZURE PRECAUTION WITH PADS COVERING SIDE RAILS.
[2022-06-07 08:00] VITALS: BP 119/63
[2022-06-07] MEDS: VALPROIC ACID 250 MG/5 ML UDC GT SCH ×2 (08:18→20:27)
[2022-06-07] MEDS: FERROUS SULFATE 300 MG/5 ML UDC GT SCH ×2 (08:20→20:26)
[2022-06-07] MEDS: FAMOTIDINE 20 MG TAB GT SCH ×2 (08:21→20:26)
[2022-06-07] MEDS: QUEtiapine FUMARATE 100 MG TAB GT SCH ×2 (08:21→20:26)
[2022-06-07] MEDS: rOPINIRole 0.25 MG TAB GT SCH (08:22)
--- NOTE | 2022-06-07 09:33 | NUR ---
PAGED DR. ROGERS TO NOTIFY OF INCREASED LETHARGY. PHYSICIAN TO SEE PATIENT THIS AFTERNOON.
[2022-06-07] MEDS: SKINTEGRITY HYDROGEL TP SCH (09:35)
--- NOTE | 2022-06-07 10:20 | NUR ---
SEEN AND EXAMINED BY DR. ROGERS. FOLLOW UP HEAD CT ORDERED.
[2022-06-07] MEDS: INSULIN LISPRO SLIDING SCALE 100 UNITS/ML VIAL SUBQ PRN (11:55)
[2022-06-07 12:00] VITALS: BP 99/51
[2022-06-07] MEDS: GAUZE TP SCH (13:09)
--- NOTE | 2022-06-07 13:25 | NUR ---
PT HAD SMALL BROWN BM. CLEANED, TURNED, AND REPOSITIONED. WOUND CARE DONE AND ALL DRESSINGS CHANGED PER ORDERS.
[2022-06-07 16:00] VITALS: BP 122/69
--- NOTE | 2022-06-07 16:00 | NUR ---
PT MORE AWAKE AND AGITATED. FOLLOWS COMMAND TO OPEN EYES. KICKING AND SCOOTING DOWN IN THE BED. ATTEMPTING TO PULL AT LINES. EDUCATED ON RISKS.
--- NOTE | 2022-06-07 19:20 | NUR ---
ENDORSED BEDSIDE REPORT TO CARLOS MAPPER RN, FOR CONTINUITY OF CARE.
--- NOTE | 2022-06-07 19:44 | NUR ---
RECEIVED REPORT FROM AM SHIFT RN NING. PT NONVERBAL A&O X0. VENT SETTINGS FI02 35% VT 450 RATE 16 PEEP 5. ACTIVE BOWEL SOUNDS. GLUCERNA 1.2 70ML/HR 150ML Q6HR. FRANK CATHETER INTACT AND FLOWING WELL. IV ACCESS TO LEFT HAND 22 GAUGE WITH NS RUNNING TKO. FLACC 0.
[2022-06-07 20:00] VITALS: BP 115/61
--- NOTE | 2022-06-07 21:00 | NUR ---
PT WITH 101.2 FEVER. COOLING MEASURES APPLIED AND TYLENOL 650MG YANET PRN QH6 ORDERED FROM DR. RODRÍGUEZ FOR TEMPERATURES MORE THAN 100.
[2022-06-07] MEDS ORDERED: ACETAMINOPHEN 650 MG/20.3 ML UDC PEG PRN (21:25)
--- NOTE | 2022-06-07 21:30 | NUR ---
PM MEDS GIVEN.
[2022-06-08] VITALS (10 sets, daily range): BP systolic 100–143; BP diastolic 59–82
--- NOTE | 2022-06-08 | NUR ---
PT RESTING. BREATHING EVEN AND UNLABORED.
[2022-06-08] MEDS: BLOOD GLUCOSE MONITORING 1 DEV DEV FS SCH ×3 (00:49→13:25)
[2022-06-08] MEDS: INSULIN LISPRO SLIDING SCALE 100 UNITS/ML VIAL SUBQ PRN ×2 (00:52→13:31)
[2022-06-08] MEDS: HYDRAGUARD CREAM TP SCH ×2 (01:00→13:28)
--- NOTE | 2022-06-08 01:00 | NUR ---
LATEST TEMP 98.6.
--- NOTE | 2022-06-08 04:30 | NUR ---
PT CLEANED AND REPOSITIONED.
[2022-06-08] MEDS: LORazepam 2 MG/ML VIAL IVP PRN ×2 (06:22→14:23)
--- NOTE | 2022-06-08 06:28 | NUR ---
0605 PRN ATIVAN 1MG GIVEN FOR RESTLESSNESS. WILL MONITOR FOR EFFECTIVENESS.
--- NOTE | 2022-06-08 07:25 | NUR ---
REPORT GIVEN TO AM SHIFT ERMIAS BLAKE.
--- NOTE | 2022-06-08 07:30 | NUR ---
RECEIVED ON A FyberSCAPE R860 VENTILATOR PLUGGED INTO RED OUTLET TOLERATING WELL WITHOUT COMPLICATIONS NOTED TO A PORTEX DCT #8 AIRWAY SECURED WITH A TAM TRACH TIE CUFF PRESSURE CHECKED NOTED AMBU BAG AT BEDSIDE STABLE RESTING COMFORTABLY GOOD CHEST RISE DEEP TRACHEAL SUCTION FOR COPIOUS THIN YELLOW/GREEN SECRETIONS AIRWAY PATENT
--- NOTE | 2022-06-08 07:30 | NUR ---
received pt in [facility] nonverbal will track at times. nsr on monitor. iv intact and patent infusing fluids per order. trach to vent tolerating settings well. gtube infusing per order. no risidual noted. no acute distress noted. safety maintained.
[2022-06-08] MEDS: SKINTEGRITY HYDROGEL TP SCH (09:09)
[2022-06-08] MEDS: QUEtiapine FUMARATE 100 MG TAB GT SCH (09:09)
[2022-06-08] MEDS: FOAM DRESSING TP SCH (09:09)
[2022-06-08] MEDS: FERROUS SULFATE 300 MG/5 ML UDC GT SCH (09:11)
[2022-06-08] MEDS: VALPROIC ACID 250 MG/5 ML UDC GT SCH (09:11)
[2022-06-08] MEDS: rOPINIRole 0.25 MG TAB GT SCH (09:12)
[2022-06-08] MEDS: FAMOTIDINE 20 MG TAB GT SCH (09:12)
--- NOTE | 2022-06-08 10:00 | NUR ---
NO APPARENT DISTRESS NOTED GOOD CHEST RISE DEEP TRACHEAL SUCTION FOR LARGE THIN YELLOW/GREEN SECRETIONS AIRWAY PATENT
--- NOTE | 2022-06-08 10:30 | NUR ---
pt resting in [facility] large bm noted. cleaned and repositioned. no acute distress noted. safety maintained.
[2022-06-08] MEDS: GAUZE TP SCH (13:27)
--- NOTE | 2022-06-08 13:57 | NUR ---
STABLE GOOD CHEST RISE DEEP TRACHEAL SUCTION FOR SMALL THIN YELLOW/GREEN SECRETIONS AIRWAY PATENT
--- NOTE | 2022-06-08 14:00 | NUR ---
pt turned and repositioned. f/c draining to gravity. nsr on monitor. nad. safety maintained
--- NOTE | 2022-06-08 15:30 | NUR ---
faxed clinicals to precious [place] [facility] [place] return
--- NOTE | 2022-06-08 15:50 | NUR ---
[facility] eta 1638
--- NOTE | 2022-06-08 16:15 | NUR ---
report given to precious art at [facility] for continuation of care.
--- NOTE | 2022-06-08 16:30 | NUR ---
[facility] at bedside report given to karen art. spoke to dr zavala regarding med recon states no changes. pt stable on dc
== END 2022-06-08 17:07 | DRG 720 ==
LOC: MED 00:10 → MMU 03:59 → OBSVTOIN 04:00 → MTU 05:45 → MIC 06-05 13:48
PROVIDERS: ADMIT Hospitalist; ATTEND Hospitalist
PROC: 5A1955Z Respiratory Ventilation, Greater than 96 Consecutive Hours (ICD-10-PCS; principal; 2022-06-02)
PROC: 4A00X4Z Measurement of Central Nervous Electrical Activity, External Approach (ICD-10-PCS; 2022-06-04)
DX: A41.9 Sepsis, unspecified organism (principal); J95.851 Ventilator associated pneumonia; E43 Unspecified severe protein-calorie malnutrition; G93.1 Anoxic brain damage, not elsewhere classified; J15.1 Pneumonia due to Pseudomonas; S06.5XAA Traumatic subdural hemorrhage with loss of consciousness status unknown, initial encounter; G40.909 Epilepsy, unspecified, not intractable, without status epilepticus; J96.10 Chronic respiratory failure, unspecified whether with hypoxia or hypercapnia; Z20.822 Contact with and (suspected) exposure to COVID-19; I10 Essential (primary) hypertension; R13.10 Dysphagia, unspecified; G96.08 Other cranial cerebrospinal fluid leak; L89.90 Pressure ulcer of unspecified site, unspecified stage; E11.9 Type 2 diabetes mellitus without complications; Z99.11 Dependence on respirator [ventilator] status; Z93.0 Tracheostomy status; Z68.1 Body mass index [BMI] 19.9 or less, adult; Z93.1 Gastrostomy status; Z79.4 Long term (current) use of insulin; W18.30XA Fall on same level, unspecified, initial encounter; Y93.89 Activity, other specified; Y92.89 Other specified places as the place of occurrence of the external cause; Y99.8 Other external cause status
CPT/HCPCS: 36415; 70450; 71045; 80048; 80053; 80202; 81001; 82140; 82948; 83605; 83735; 84100; 84443; 84484; 85025; 85610; 85730; 87040; 87070; 87081; 87205; 89220; 93005; 94002; 94003; 94640; 95816; 96361; 96365; 99291; A6248; J0692; J1644; J2060; J2270; J2543; J3370; J7030; J7060; Q0092

== ENCOUNTER 2022-07-02 17:18 | Emergency (ER) | payer OTHER ==
[~2022-07-02] VITALS: Ht 177.8 cm; Wt 81.6 kg
[~2022-07-02 17:18] MED LIST changes: +ACET-2619 GT; +ASCO500T95 GT; +ROPI0.2523 GT; +SLIDE SUBQ; +[UNRECOGNIZED DRUG - CODE] GT
--- NOTE | 2022-07-02 17:21 | NUR ---
JARROD ALS TO ER BED 6
[2022-07-02 17:30] VITALS: BP 110/72
[2022-07-02 17:43] LABS: BASOPHILS # (AUTO) 0.1 K/uL (0.00-0.22); BASOPHILS % (AUTO) 0.6 % (0.0-2.0); EOSINOPHILS # (AUTO) 0.2 K/uL (0-0.4); HEMATOCRIT 21.5 % (36-52); HEMOGLOBIN 7.2 g/dL (12.0-18.0); LYMPHOCYTES # (AUTO) 0.8 K/uL (2.0-11.5); LYMPHOCYTES % (AUTO) 5.2 % (20.5-51.1); MEAN CORPUSCULAR HEMOGLOBIN 29 pg (27-31); MEAN CORPUSCULAR HGB CONC 34 g/dL (33-37); MEAN CORPUSCULAR VOLUME 86.2 fL (80-94); MONOCYTES % (AUTO) 6.7 % (1.7-9.3); NEUTROPHILS # (AUTO) 12.6 K/uL (1.8-7.7); NEUTROPHILS % (AUTO) 86.5 % (42.2-75.2); PLATELET COUNT (AUTO) 378 K/uL (140-450); RED CELL DISTRIBUTION WIDTH 17.5 % (11.6-13.7); WHITE BLOOD COUNT (AUTO) 14.6 K/uL (4.8-10.8)
[2022-07-02 17:55] VITALS: BP 169/75
--- NOTE | 2022-07-02 18:02 | NUR ---
PATIENT PRESENTS TO ED WITH ABNORMAL LABS PER PIPE ASSEMBLY WORKER REPORT . HGB IS 6.8. PT IS VENT DEPENDENT AND ATTACHED TO VENTILATOR. SKIN IS PALE/WARM/DRY; GCS OF 10 AND IS BEDBOUND, CONTRACTIONS NOTED TO THE LEFT SIDE; LUNGS CLEAR AND DIMINISHED BL; HR EVEN AND REGULAR; PATIENT POSITIONED FOR COMFORT; HOB ELEVATED; BEDRAILS UP X2; BED DOWN. BLOOD DRAWN AND SENT TO LAB. ER MD MADE AWARE OF PT STATUS.
[2022-07-02 18:09] LABS: ANION GAP 9.1 (8-16); CARBON DIOXIDE 33.1 mmol/L (21-32); CREATININE 1.2 mg/dL (0.6-1.3); POTASSIUM 5.2 mmol/L (3.5-5.1)
--- NOTE | 2022-07-02 19:23 | NUR ---
REPORT GIVEN TO ERMIAS MICHEL FOR CONTINUITY OF CARE.
--- NOTE | 2022-07-02 20:19 | NUR ---
PT FROM [facility]. PENDING POSS BLOOD TRANSFUSION. PT IS TRACH TO VENT . ORDER FOR SOFT RESTRAINTS GIVEN PT PULLING AT VENT TUBING FROM R HAND. ON BEDSIDE CHIEF RELAY TESTER . SP02 99% . PT IS ASLEEP HOB ELEVATED BED AT LOWEST POSITION SIDE RAILS UP X2. FRANK IN PLACE. NKDA
--- NOTE | 2022-07-02 21:32 | NUR ---
SPOKE TO PT SISTER FOR CONSTENT BLOOD TRANSFUSION. TANIYA GIVEN.
--- NOTE | 2022-07-02 22:45 | NUR ---
Patient to be transferred to [facility]. Is being transferred due to [facility]. Receiving facility has accepting physician and available space. ER physician has signed transfer form. Patient or responsible constitution party has agreed to transfer and signed form. Patient belongings inventoried and will be sent with patient. Copy of nursing notes, lab reports, EKG, Physicians Orders and X-rays to be sent with patient. Report called to HERMILO at receiving facility. [facility]. ETA is 60.
--- NOTE | 2022-07-02 23:49 | NUR ---
PT RESTING WITH HOB ELEVATED. BLOOD STILL TRANSFUSING. PT ON BEDSIDE FILL PLANT OPERATOR.
--- NOTE | 2022-07-03 01:08 | NUR ---
BLOOD TRANSFUSION COMPLETED. PT RESTING RESP EVEN AND UNLABORED. NO DISTRESS NOTED. VS WNL
--- NOTE | 2022-07-03 02:00 | NUR ---
REPORT GIVEN BACK TO [facility]. [facility] ETA FOR TRANSPORT 30MINS
--- NOTE | 2022-07-03 02:25 | NUR ---
RT AT BEDSIDE
[2022-07-03] MEDS ORDERED: LORazepam 2 MG/ML VIAL IM ONE (02:30)
[2022-07-03] MEDS ORDERED: LORazepam 2 MG/ML VIAL ONE (02:31)
--- NOTE | 2022-07-03 03:09 | NUR ---
[facility] AT BEDSIDE TO TRANSPORT PT
[2022-07-03] MEDS ORDERED: ACETAMINOPHEN 650 MG/20.3 ML UDC ONE (03:17)
[2022-07-03] MEDS ORDERED: ACETAMINOPHEN 325 MG TAB GT ONE (03:20)
[2022-07-03] MEDS ORDERED: ACET-2619 GT (03:33)
--- NOTE | 2022-07-03 03:39 | NUR ---
[facility] REFUSED TO TRANSPORT PT DUE TO LOW GRADE FEVER. ER MD DR KANG MADE AWARE , ORDERS RECIEVED TO MEDICATED PT BEFORE TRANSPORT. FACILITY [facility] CONTACTED AND NOTIFED OF FEVER. [facility] STILL REFUSED TO TRANSPORT PT
--- NOTE | 2022-07-03 03:45 | NUR ---
AT TIME OF TRANSFER [facility] RN NOTED LOW GRADE FEVER 100.8. PT MEDICATED WITH 650MG VIA GTUBE. [place] RN [place] [facility] "IF PT WAS CLEARED BY ER PHYSCIAN THEN PT CAN RETURN. I AM NOT REFUSING THE PT. BUT WE ARE LOWER LEVEL OF CARE AND DO NOT HAVE A PHYSCIAN IN HOUSE TO BE ABLE TO SEE THE PATIENT." EXPLAINED TO ERMIAS DOE THAT ERMD WILL PROVIDED RX AND IS CLEARED. PER ERMIAS DOE WILL CONTACT ADMIT PHYSCIAN.
--- NOTE | 2022-07-03 03:55 | NUR ---
RETURN CALL FROM NADER AT [facility] [place] WHO STATED "PER ON-CALL PHYSCIAN DR. ELLIOTT PT CAN RETURN TO FACILITY." EXPLAINED TO NADER TRANSPORT LEFT FACILITY AT THIS TIME. TRANSPORT WILL HAVE TO WAIT.
[2022-07-03 04:20] VITALS: BP 133/74
--- NOTE | 2022-07-03 04:26 | NUR ---
Patient discharged with v/s stable. Written and verbal after care instructions given and explained. Patient verbalized understanding. Ambulance Transport with to [facility]. All questions addressed prior to discharge. Advised to follow up with PMD.
--- NOTE | 2022-07-03 04:51 | NUR ---
The patient's care was reviewed and supervised by Brook Reyes RN.
== END 2022-07-03 04:26 | disposition home or self-care (01) ==
LOC: MED 17:18
DX: D64.9 Anemia, unspecified (principal); E11.9 Type 2 diabetes mellitus without complications; Z86.73 Personal history of transient ischemic attack (TIA), and cerebral infarction without residual deficits; Z79.4 Long term (current) use of insulin; Z79.899 Other long term (current) drug therapy
CPT/HCPCS: 36415; 80048; 85025; 86886; 86900; 86901; 86920; 94760; 96372; 99285; J2060; P9016; 36430

== ENCOUNTER 2022-10-09 06:25 | Inpatient (IN) | payer OTHER ==
[2022-10-09] VITALS (10 sets, daily range): BP systolic 65–120; BP diastolic 23–66
[~2022-10-09] VITALS: Ht 165.1 cm; Wt 62.1 kg
[~2022-10-09 06:25] MED LIST changes: +ATRN INH; +HUMSLIDE SUBQ; +LANTUS SUBQ; +LOV40I SUBQ; -METF-346 PO; +MULT-2086 PO; +PIPE100S2 IV; +PRON INH
--- NOTE | 2022-10-09 06:27 | NUR ---
Patient placed on bed 1.
--- NOTE | 2022-10-09 06:28 | NUR ---
Dr. Hayes examining patient.
[2022-10-09] MEDS ORDERED: NACL 0.9% 1,000 ML IV ONE (06:30)
[2022-10-09] MEDS ORDERED: NUTR30LI3 GT (06:51)
[2022-10-09] MEDS ORDERED: CRAN250C GT (06:51)
[2022-10-09 06:54] LABS: BASOPHILS % (AUTO) 0.1 % (0.0-2.0); LYMPHOCYTES # (AUTO) 0.3 K/uL (2.0-11.5); MEAN CORPUSCULAR HEMOGLOBIN 30 pg (27-31); MEAN CORPUSCULAR HGB CONC 33 g/dL (33-37); MONOCYTES # (AUTO) 1.5 K/uL (0.8-1.0); MONOCYTES % (AUTO) 10.6 % (1.7-9.3); NEUTROPHILS % (AUTO) 87.3 % (42.2-75.2); PLATELET COUNT (AUTO) 195 K/uL (140-450); RED BLOOD CELL COUNT(AUTO) 2.16 MIL/uL (4.20-6.10); WHITE BLOOD COUNT (AUTO) 13.8 K/uL (4.8-10.8)
[2022-10-09 07:04] LABS: HEMOGLOBIN 6.5 g/dL (12.0-18.0)
[2022-10-09 07:05] LABS: HEMATOCRIT 19.9 % (36-52)
--- NOTE | 2022-10-09 07:07 | NUR ---
Patient resting in bed, eyes closed, chest rise and fall symmetrical, trach and mechanical vent, no s/s of distress, on monitor.
[2022-10-09 07:21] LABS: ALBUMIN 2.1 g/dL (3.4-5.0); ANION GAP 15.3 (8-16); ASPARTATE AMINOTRANSFERASE 19 U/L (15-37); CARBON DIOXIDE 34.9 mmol/L (21-32); CHLORIDE 90 mmol/L (98-107); CREATININE 2.9 mg/dL (0.6-1.3); GFR ARICAN-AMERICAN 28 mL/min (>90); GLUCOSE 134 mg/dL (74-106); POTASSIUM 5.2 mmol/L (3.5-5.1); SODIUM SERUM 135 mmol/L (136-145); TOTAL BILIRUBIN 0.3 mg/dL (0.0-1.0)
--- NOTE | 2022-10-09 07:23 | NUR ---
Change of shift report given to AM shift Nurse Tate RN. AM shift Nurse Víctorin RN verbalized understanding of report, no further questions.
[2022-10-09 07:33] LABS: UREA NITROGEN, BLOOD 141 mg/dL (7-18)
[2022-10-09 07:55] LABS: APPEARANCE,URINE SL CLOUDY (CLEAR); BILIRUBIN,URINE NEGATIVE (NEGATIVE); BLOOD, URINE 1+ (NEGATIVE); COLOR,URINE YELLOW (YELLOW); LEUKOCYTE ESTERASE ,URINE 2+ (NEGATIVE); NITRITE, URINE NEGATIVE (NEGATIVE); UGLUCOSE NEGATIVE (NEGATIVE)
[2022-10-09] MEDS ORDERED: PIPERACILLIN/TAZOBACTAM 3.375 GM in DEXTROSE 5% 50 ML IV ONE (08:25)
[2022-10-09 08:29] LABS: RBC,URINE 11-20 (MOD) /HPF (0-5)
[2022-10-09] MEDS ORDERED: PIPERACILLIN/TAZOBACTAM 3.375 GM VIAL IV ONE (08:34)
--- NOTE | 2022-10-09 09:03 | NUR ---
AWAKE IN BED, MOVES R LEG OFTEN, NO SEIZURES NOTED. RAILS PADDED FOR COMFORT
--- NOTE | 2022-10-09 09:30 | NUR ---
jaciel metzger will admit
[2022-10-09] MEDS ORDERED: cefTRIAXone 1,000 MG VIAL ONE (09:46)
[2022-10-09] MEDS ORDERED: NACL 0.9% 1,000 ML IV SCH ×2 (10:10→17:35)
[2022-10-09] MEDS ORDERED: MORPHINE SULFATE 2 MG/ML SYR IVP PRN (10:10)
[2022-10-09] MEDS ORDERED: ONDANSETRON 4 MG/2 ML VIAL IVP PRN (10:10)
[2022-10-09] MEDS ORDERED: SODIUM ZIRCONIUM CYCLOSILICATE 10 GM POWD.PACK GT SCH (12:14)
[2022-10-09] MEDS ORDERED: PIPERACILLIN/TAZOBACTAM 3.375 GM in DEXTROSE 5% 50 ML IV SCH (13:00)
--- NOTE | 2022-10-09 14:27 | NUR ---
DARK GREEN LOOSE STOOLS X 2, CLEANED AND KEPT DRY. HEALED LEFT [place] AND RIGHT HEEL PRESSURE WOUND. SMALL COCCYX PRESSURE WOUND NOTED, EXCORIATION AROUND RECTUM NOTED.
[2022-10-09] MEDS: LORazepam 2 MG/ML VIAL IVP PRN ×2 (15:20→20:12)
--- NOTE | 2022-10-09 16:09 | NUR ---
Patient will be admitted to care of DR EDOUARD. Admited to TELE. Will go to room ICU 2 OVERFLOW. Belongings list completed. Report to RANULFO MONSON.
--- NOTE | 2022-10-09 16:15 | NUR ---
RECEIVED REPORT FROM ER NURSE. ADMITTED 62 Y/O MALE WITH AN ADMITTING DX OF PNA, UTI, AND ANEMIA. AOX0, OPENS YES TO TOUCH, NO TRACKING, APHASIC. TRACH TO VENT AC VC FIO2 45%, TV 450, RATE 16, PEEP 5. WITH PERIPHERAL IV RUNNING NS AT 100CC/HR. FRANK CATH DRAINING DARK VICENTE URINE.
[2022-10-09] MEDS: PIPERACILLIN/TAZOBACTAM 2.25 GM in DEXTROSE 5% 50 ML IV SCH (17:07)
--- NOTE | 2022-10-09 17:15 | NUR ---
PT HYPOTENSIVE, SBP 70-80, MAP 40-50. PAGED DR ERICKSON. ORDERS RECEIVED AND CARRIED OUT
[2022-10-09] MEDS ORDERED: VANCOMYCIN PER PHARMACY MC PRN (17:20)
[2022-10-09] MEDS ORDERED: VASOPRESSIN 20 UNITS in NACL 0.9% 250 ML IV PRN (17:20)
[2022-10-09] MEDS ORDERED: DEXTROSE 10% 1,000 ML IV SCH (17:20)
[2022-10-09] MEDS ORDERED: DEXTROSE 50% 50 ML SYR IVP ONE (17:20)
[2022-10-09] MEDS ORDERED: DEXTROSE 50% 50 ML SYR IVP PRN (17:30)
--- NOTE | 2022-10-09 17:30 | NUR ---
PT APPEARS PALE AND WEAK, BLOOD SUGAR 19. NOTIFIED DR ERICKSON AND DR MICHEL. ORDERS RECEIVED. D50 GIVEN
[2022-10-09] MEDS: BLOOD GLUCOSE MONITORING 1 DEV DEV FS SCH (17:50)
[2022-10-09] MEDS: NOREPINEPHRINE 4 MG in DEXTROSE 5% 250 ML IV PRN (17:50)
--- NOTE | 2022-10-09 17:50 | NUR ---
BLOOD SUGAR RECHECKED 128. STARTED ON D5NS 100CC/HR
[2022-10-09] MEDS ORDERED: VANCOMYCIN 1,000 MG in DEXTROSE 5% 250 ML IV SCH (18:00)
--- NOTE | 2022-10-09 18:40 | NUR ---
INSERTED IV TO RIGHT HAND 22G. BLOOD TRANSFUSION STARTED
[2022-10-09] MEDS: DEXT 5% /NACL 0.9% 1,000 ML IV SCH (18:53)
--- NOTE | 2022-10-09 19:20 | NUR ---
RECEIVED BEDSIDE REPORT FROM RANULFO MONSON. VITALS: HR TEMP 98.1 F, 103, SPO2 96% RR 33 BP 110/49. PT AWAKE IN BED. ON TRACH TO VENT AC VC FIO2 45% VT 450 RR 16 PEEP 5. BREATHING EVEN AND UNLABORED. G TUBE IN PLACE NPO. FRANK CATHETER DRAINING URINE. LEFT HAND 20 G IV INFUSING 1 UNIT PRBC. RIGHT HAND 22 G INFUSING D5W AT 100 ML/HR AND LEVOPHED 4 MCG/MIN.
[2022-10-09] MEDS: PANTOPRAZOLE 40 MG INJ VIAL IVP SCH (20:10)
[2022-10-09] MEDS ORDERED: VALPROIC ACID 250 MG/5 ML UDC GT SCH (21:00)
--- NOTE | 2022-10-09 21:13 | NUR ---
VENT MODE SWITCHED TO PRVC 450 +5 f16 FROM AC/VC 450 +5 f16 DUE TO HIGH PIPS (35-40) PT APPEARS TO BE TOLERATING WELL AT THIS TIME PT IS STILL IRRITABLE W/ LOWER PIPs (20s) WILL CONTINUE TO MONITOR
--- NOTE | 2022-10-09 21:15 | NUR ---
RT AT BEDSIDE, VENT SETTING HAVE BEEN ADJUSTED NEW VENT SETTINGS ARE FOLLOWS: AC/PRVC, FIO2 = 45%, VT = 450, R = 16, PEEP = 5
[2022-10-10] VITALS (31 sets, daily range): BP systolic 78–145; BP diastolic 39–72
[2022-10-10] MEDS: BLOOD GLUCOSE MONITORING 1 DEV DEV FS SCH ×4 (00:11→21:15)
[2022-10-10] MEDS: PIPERACILLIN/TAZOBACTAM 2.25 GM in DEXTROSE 5% 50 ML IV SCH ×4 (00:16→17:17)
--- NOTE | 2022-10-10 02:37 | NUR ---
RT AT BEDSIDE, VENT SETTINGS ADJUSTED, PATIENT NOW WITH FIO2 = 35%
[2022-10-10] MEDS ORDERED: Z-GUARD PASTE TP ONE (03:54)
[2022-10-10] MEDS: DEXT 5% /NACL 0.9% 1,000 ML IV SCH ×2 (04:10→08:00)
[2022-10-10] MEDS: NOREPINEPHRINE 4 MG in DEXTROSE 5% 250 ML IV PRN (05:24)
[2022-10-10 06:02] LABS: BASOPHILS # (AUTO) 0.1 K/uL (0.00-0.22); BASOPHILS % (AUTO) 0.2 % (0.0-2.0); HEMATOCRIT 23.7 % (36-52); HEMOGLOBIN 7.7 g/dL (12.0-18.0); LYMPHOCYTES # (AUTO) 0.4 K/uL (2.0-11.5); LYMPHOCYTES % (AUTO) 1.4 % (20.5-51.1); MEAN CORPUSCULAR HEMOGLOBIN 29 pg (27-31); MEAN CORPUSCULAR HGB CONC 33 g/dL (33-37); MONOCYTES # (AUTO) 2.5 K/uL (0.8-1.0); MONOCYTES % (AUTO) 8.5 % (1.7-9.3); NEUTROPHILS # (AUTO) 26.5 K/uL (1.8-7.7); NEUTROPHILS % (AUTO) 89.9 % (42.2-75.2); PLATELET COUNT (AUTO) 173 K/uL (140-450); RED BLOOD CELL COUNT(AUTO) 2.63 MIL/uL (4.20-6.10); RED CELL DISTRIBUTION WIDTH 18.6 % (11.6-13.7)
[2022-10-10 06:07] LABS: WHITE BLOOD COUNT (AUTO) 29.5 K/uL (4.8-10.8)
[2022-10-10 06:19] LABS: ALBUMIN 1.8 g/dL (3.4-5.0); CARBON DIOXIDE 33.2 mmol/L (21-32); CREATININE 2.8 mg/dL (0.6-1.3); MAGNESIUM 3.2 mg/dL (1.8-2.4); POTASSIUM 4.2 mmol/L (3.5-5.1); TOTAL BILIRUBIN 0.3 mg/dL (0.0-1.0)
--- NOTE | 2022-10-10 07:00 | NUR ---
RECEIVED PT ON PRVC 450,F16,+5, 35%. VENT WHEELS ARE LOCKED, PLUGGED INTO RED OUTLET, AMBUBAG AT BEDSIDE, ALARMS ARE SET AND AUDIBLE. SATURATION 99%, SUCTIONED OUT MINIMAL PALE YELLOW SECRETIONS. PT RESTING COMFORTABLY. NO DISTRESS NOTED.WILL CONTINUE TO MONITOR.
--- NOTE | 2022-10-10 07:15 | NUR ---
RECEIVED REPORT FROM SUE LOPEZ/DASHA MONSON. AOX0, OPENS EYES SPONTANEOUSLY, NO TRACKING, APHASIC. TRACH TO VENT, AC PRVC FIO2 35%, VT 450, RATE 16, PEEP 5. SR ON MONITOR. PERIPHERAL IV TO LT HAND 20G, RUNNING D5 NS @100MLS/H, LEVO @6 MCG/MIN. RT HAND 22G SALINE LOCK. G TUBE IN PLACE AND CLAMPED, NPO. FRANK CATH IN PLACE TO GRAVITY, URINE DARK VICENTE. SEE WOUND ASSESSMENT. SAFETY PRECAUTION IN PLACE. HOB ELEVATED, WILL CONTINUE TO MONITOR.
--- NOTE | 2022-10-10 07:20 | NUR ---
BEDSIDE REPORT GIVEN TO OKSANA MONSON FOR CONTINUITY OF CARE.
[2022-10-10] MEDS: PANTOPRAZOLE 40 MG INJ VIAL IVP SCH ×2 (08:28→20:23)
[2022-10-10] MEDS: VALPROIC ACID 250 MG/5 ML UDC GT SCH ×2 (08:29→20:23)
--- NOTE | 2022-10-10 09:13 | NUR ---
PATIENT HAS BEEN SCREENED AND CATEGORIZED HIGH NUTRITION RISK. PATIENT WILL BE SEEN WITHIN 1-2 DAYS OF ADMISSION. RECEIVED FNS CONSULT FOR TUBE FEEDING NELLIE ERICKSON RD
--- NOTE | 2022-10-10 10:17 | NUR ---
WOUND CARE EVALUATION NOTE: SKIN ASSESSMENT DONE WITH THIS 62 Y/O PT ADMITTED FROM SNF TO [facility] WITH INITIAL DX FEVER. PAST MEDICAL HX INCLUDES HTN, DM, TRACH, G-TUBE. ALL ABOVE INFORMATION OBTAINED FROM ADMISSION H&P. PT ADMITTED WITH RIGHT HIP AND COCCYX PRESSURE INJURIES SKIN IS WARM AND DRY, BLE HAIR GROWTH, NO EDEMA. DORSAL PEDAL PULSES PRESENT AND NORMAL. CAPILLARY REFILLED < 2 SEC. X 10 TOES. INCONTINENT OF BOWEL X1 DURING ASSESSMENT DARK BROWN STOOL. F/C PATENT WITH MODERATE AMOUNT VICENTE COLOR URINE OUT PUT OBSERVED. PT. SKIN TO BONE, LOW ALBUMIN MALNUTRITION. PLAN OF CARE DISCUSSED WITH PRIMARY RN AMBER. INTEGUMENTARY: -TRACH AND GT SITE SHELLEY-STOMA SKIN DRY AND INTACT -MODERATE MOISTURE ASSOCIATED SKIN DAMAGE(MASD) TO SCROTAL, SHELLEY-ANAL SKIN REDNESS WITH MULTIPLE EROSIONS. -COCCYX PRESSURE INJURY STAGE 3 WITH 1X1X0.2CM 100% RED TISSUE, MOIST, NO ODOR, SHELLEY-WOUND SKIN DENUDED DTI, ENTIRE AFFECTED AREA 3X3CM FURTHER DAMAGE INDICATED. - RIGHT ( BELOW ) TROCHANTER PRESSURE INJURY STAGE 2, 5X2CM SUPERFICIAL DEPTH, WOUND BED IS 100% PINK TISSUE DRY, NO ODOR, SHELLEY WOUND SKIN INTACT -BILATERAL HEELS SKIN INTACT, MUSHY RECOMMENDATIONS: -SHELLEY-CARE Q2H, APPLY Z-GUARD TO SCROTAL AND SHELLEY-ANAL BID AND PRN IF SOILING -CLEANSE SACRALCOCCYX AND RIGH HIP WITH WOUND CLEANSING SOLUTION, APPLY THERAHONEY GEL COVER WITH COMPOSITE DRESSING QD AND PRN IF SOILING, OFF LODING SACRALCOCCYX -PRESSURE REDISTRIBUTION SURFACE THERAPY MERVIN ISOFLEX VIRI MATTRESS -HEEL PROTECTORS WITH OFFLOADING -POSITIONING: TURN AND REPOSITION PATIENT Q 2H OR SOONER USE PILLOWS TO KEEP BONY PROMINENCES FROM DIRECT CONTACT WITH SURFACES USE REPOSITIONING WEDGES TO PROVIDE 30-DEGREE ANGLE FOR SIDE LYING POSITIONS OFFLOADING OR FOAM DRESSING TO ALL TUBING TO PREVENT MEDICAL DEVICES RELATED PRESSURE INJURY -RE-EVALUATING AND MANAGING INCONTINENCE MONITOR SKIN CONDITION DURING POSITION CHANGE DO NOT MASSAGE REDNESS, BONY PROMINENCES, DO NOT USE DONUT-TYPE DEVICES FREQUENT SHELLEY-CARE AND PROVIDE BARRIER CREAMS PRN IF SOILING MOISTURE CONTROL BY OFFER BED THEODORE/URINAL /ABSORBENT PAD TO WICK AND HOLD MOISTURE. KEEP SKIN DRY AND PROTECT FROM FRICTION -MANAGE FRICTION/SHEAR/MOBILITY KEEP HOB AT THE LOWEST LEVEL OF ELEVATION NO MORE THAN 30 DEGREES UNLESS OTHERWISE CONTRAINDICATED USE LIFT SHEET OR TRANSFER DEVICE TO MOVE PATIENT AND PREVENT LATERAL SHEER. CONSIDER TRAPEZE IF APPROPRIATE PROTECT HEELS, ELBOWS BONY PROMINENCES WITH SKIN BERRIES OR FOAM DRESSING IF EXPOSED TO FRICTION OFFLOAD BILATERAL HEELS BY PLACING PILLOWS UNDER CALVES AT ALL TIMES, UNLESS OTHERWISE CONTRAINDICATED -NUTRITION: PLEASE FOLLOW RD RECOMMENDATIONS AND OFFER NUTRITION SUPPLEMENTS IF ORDERED.
--- NOTE | 2022-10-10 11:14 | NUR ---
10/10/22 RD INITIAL ASSESSMENT COMPLETED PLEASE REFER TO NUTRITION ASSESSMENT UNDER CARE ACTIVITY FOR ESTIMATED NUTRITIONAL NEEDS. 1. WHEN/IF MEDICALLY APPROPRIATE, RECOMMEND GLUCERNA 1.2 @ 70ML/HR WITH CHIOMA BID PER RX PROTOCOL -FWF: 150ML Q6H OR PER MD -START AT 20ML/HR AND INCREASE BY 10ML Q4H TOLERATED -WITH CHIOMA BID, PT WILL RECEIVE 2170KCAL, 106G PROTEIN AND 1952ML FREE WATER; ADEQUATE 2. MONITOR NUTRITION-RELATED LAB VALUES 3. RD TO FOLLOW-UP 2-3 DAYS, HIGH RISK NELLIE ERICKSON RD
[2022-10-10] MEDS ORDERED: VANCOMYCIN PER PHARMACY MC PRN (11:35)
--- NOTE | 2022-10-10 11:41 | NUR ---
DR ERICKSON ROUNDING AT BESIDE. UPDATED PT INFORMATION. NEW ORDERS RECEIVED.
--- NOTE | 2022-10-10 11:44 | NUR ---
DC PLANN[age] YRS OLD MALE PATIENT WAS ADMITTED FROM [facility] [place] WITH A DX OF PNEUMONIA, UTI AND ANEMIA. PATIENT HAS A HX OF ANOXIC BRAIN INJURY, CHRONIC RESP FAILURE VENT DEPENDENT, DM, HTN, AND G-TUBE. CXR SHOWED PNEUMONIA RAPID COVID TEST NEGATIVE. ADMINISTERED IVF, IV ABX ZYVOX. CONSULTED WITH NEPHRO AND ID. DC PLAN TO RETURN TO [facility] [place] WHEN STABLE CM TO FOLLOW. Addendum: 10/14/22 at 1203 by Geno Andino RN DC PLANNING: SEEN BY AUDELIA, CHRISTIANO AND NEPHRO NO NEED FOR DIALYSIS KIDNEY FUNCTION SLIGHTLY IMPROVED. CHRONIC RESP FAILURE VENT DEPENDENT. CONTINUED IV ABX LINEZOLID. DC PLAN TO RETURN TO [facility] [place] WHEN STABLE CM TO FOLLOW Addendum: 10/15/22 at 1424 by Geno Andino RN DC PLANNING: SEEN BY NEPHRO AND ID CREATININE IMPROVING CONTINUED IV ABX TOBRAMYCIN AND ZYVOX FOR ENTEROBACTER OF URINE. CONTINUED TRACH CARE. FIO2 30% DC PLAN TO RETURN TO [facility] [place] WHEN STABLE CM TO FOLLOW Addendum: 10/17/22 at 1408 by GIL HOLLAND CM RECEIVED ORDER FOR PAT TO DISCHARGE BACK TO SNF WITH IV ABX. FAXED ALL PAPERWORK TO [facility] [place]. SPOKE WITH ARABELLA AT [facility] [place] LOCATED AT [address] [place] [address]. PATIENT WILL BE GOING TO ROOM 21-A UNDER DR BRYANT/ROMINA. TRANSPORTATION SET UP WITH [facility] FOR A 1800 MACHINE WOOD SANDER TIME. [facility] IS INFORMED TO CALL NURSING STATION WITH UPDATED ETA AND COMPANY INFORMATION.NURSE CHOU AND SISTER COREY AWARE OF THE ABOVE INFORMATION.
--- NOTE | 2022-10-10 11:50 | NUR ---
DC PLANNING ASSESSMENT COMPLETE PLEASE REFER TO ASSESSMENT FOR ADDITIONAL DETAILS PT TRACH- VENT DEPENDENT. OUTREACHED TO PT'S SISTER ALIA WERNER, TO GATHER COLLATERAL INFORMATION. ALIA REPORTS NO CHANGES FROM PTS LAST VISIT. ALIA REPORTS PT IS IN SUBACUTE CARE WITH [facility], ADMISSION DATE; 04/11/22. PTS DAUGHTER YUNI GLORIA, RESIDES IN [place] HOWEVER, IS REPORTED TO BE ACTIVE IN PT'S CARE AND IS PTS MDM HOWEVER, NO FORMAL POA ON FILE. PT IS BED BOUND AND TOTAL CARE AT FACILITY. TERRI REPORTS DC PLAN IS FOR PT TO RETURN TO [facility] ONCE MEDICALLY STABLE. Addendum: 10/10/22 at 1151 by Timothy IRELAND Amended: Links added.
[2022-10-10] MEDS: INSULIN LISPRO SLIDING SCALE 100 UNITS/ML VIAL SUBQ PRN ×2 (11:58→21:14)
--- NOTE | 2022-10-10 12:05 | NUR ---
DR SHAIKH JIN AT BEDSIDE. UPDATED PT INFORMATION. NEW ORDER RECEIVED.
[2022-10-10] MEDS: MIDODRINE 5 MG TAB PO SCH ×2 (12:16→18:20)
[2022-10-10] MEDS: THERAHONEY GEL 42.5 GM TP SCH (12:17)
[2022-10-10] MEDS: Z-GUARD PASTE TP SCH (12:18)
[2022-10-10] MEDS ORDERED: VANCOMYCIN HCL 750 MG in DEXTROSE 5% 250 ML IV SCH (18:00)
[2022-10-10] MEDS: LORazepam 2 MG/ML VIAL IVP PRN (18:20)
--- NOTE | 2022-10-10 19:10 | NUR ---
ENDORSED TO KAIT RN FOR CONTINUITY OF CARE. ALL QUESTION ANSWERED.
--- NOTE | 2022-10-10 19:30 | NUR ---
RECEIVED PATIENT ON BED WITH HOB ELEVATED TO 30 DEGREE, RESTLESS KEEPS ON MOVING HIS HEAD;ON TRACH TO VENT AT 35% FIO2 S02 97%,CARDIACSCOPE SHOWS ON SINUD RHYTHM HR 88/MIN NO ARRHYTHMIAS SEEN. IVF IN PROGRESS NORMAL SALINE AT 5 ML/HR VIA G 22 ON LEFT HAND, PATENT AND INTACT. ABDOMEN IS SOFT; HYPOACTIVE BOWEL SOUNDS; ON CONTINUOUS TUBE FEEDING VIA G TUBEGLUCERNA 30 ML/HR WITH WATER FLUSH AT 150 ML Q 6 HRS; TOLERATED WITH MINIMAL RESIDUAL. FRANK CATH IN SITU TO GRAVITY DRAINAGE BAG DRAINING TO CLEAR YELLOW URINE OUTPUT; INTACT.
--- NOTE | 2022-10-10 20:30 | NUR ---
TURNED AND REPOSITIONED PATIENT; ORAL CARE DONE WITH VAP KIT.
[2022-10-11] VITALS (21 sets, daily range): BP systolic 95–128; BP diastolic 49–71
[2022-10-11] MEDS: PIPERACILLIN/TAZOBACTAM 2.25 GM in DEXTROSE 5% 50 ML IV SCH ×4 (00:09→18:09)
--- NOTE | 2022-10-11 00:30 | NUR ---
HAD BM TO A LARGE AMOUNT OF LOOSE SOFT TO WATERY YELLOWISH BROWN STOOL; KEPT CLEAN DRY AND COMFORTABLE; REPOSITIONED.
[2022-10-11] MEDS: Z-GUARD PASTE TP SCH ×2 (00:58→13:17)
[2022-10-11] MEDS: THERAHONEY GEL 42.5 GM TP SCH (01:00)
[2022-10-11] MEDS: LORazepam 2 MG/ML VIAL IVP PRN ×2 (01:03→20:35)
--- NOTE | 2022-10-11 04:00 | NUR ---
ORAL CARE DONE WITH VAP KIT
--- NOTE | 2022-10-11 04:22 | NUR ---
0410 PT SATS DROPPED TO 89%. INCREASED FIO2 TO 40%
[2022-10-11 04:34] LABS: BASOPHILS # (AUTO) 0.1 K/uL (0.00-0.22); BASOPHILS % (AUTO) 0.6 % (0.0-2.0); EOSINOPHILS % (AUTO) 0.2 % (0.0-4.0); HEMATOCRIT 23.1 % (36-52); HEMOGLOBIN 7.4 g/dL (12.0-18.0); LYMPHOCYTES # (AUTO) 0.5 K/uL (2.0-11.5); LYMPHOCYTES % (AUTO) 3.2 % (20.5-51.1); MEAN CORPUSCULAR HEMOGLOBIN 29 pg (27-31); MEAN CORPUSCULAR HGB CONC 32 g/dL (33-37); MONOCYTES % (AUTO) 11.4 % (1.7-9.3); NEUTROPHILS # (AUTO) 14.6 K/uL (1.8-7.7); PLATELET COUNT (AUTO) 166 K/uL (140-450); RED BLOOD CELL COUNT(AUTO) 2.54 MIL/uL (4.20-6.10); RED CELL DISTRIBUTION WIDTH 18.4 % (11.6-13.7); WHITE BLOOD COUNT (AUTO) 17.2 K/uL (4.8-10.8)
[2022-10-11 05:31] LABS: NEUTROPHILS % (AUTO) 84.6 % (42.2-75.2)
[2022-10-11] MEDS: MIDODRINE 5 MG TAB PO SCH ×3 (06:19→18:09)
[2022-10-11 06:30] LABS: ALBUMIN 1.6 g/dL (3.4-5.0); ANION GAP 14.2 (8-16); CARBON DIOXIDE 30.6 mmol/L (21-32); POTASSIUM 3.8 mmol/L (3.5-5.1); TOTAL BILIRUBIN 0.3 mg/dL (0.0-1.0)
--- NOTE | 2022-10-11 07:05 | NUR ---
ENDORSED TO AM SHIFT ERMIAS BARCLAY FOR CONTINUITY OF CARE.
--- NOTE | 2022-10-11 07:10 | NUR ---
RECEIVED BEDSIDE REPORT FROM KAIT IMPREGNATOR OPERATOR RN FOR CONTINUITY OF CARE. PT A/OX0, PERRL. TRACH TO VENT A/C PRVC FIO2 40%, VT 450, RR 16, PEEP 5. SR ON MONITOR. 22G IV TO R HAND INFUSING NS TKO 5 ML/HR. LEVOPHED REMAINS OFF. G TUBE IN PLACE RECEIVING TUBE FEEDING AT 50 ML/HR FWF 150 ML Q6H. F/C TO GRAVITY DRAINING CLOUDY YELLOW URINE. GENERALIZED WEAKNESS. BILATERAL HEEL PROTECTOR BOOTS AND SCD'S IN PLACE. BED PUMP ON. STANDARD PRECAUTION. HOB 30 DEGREES. BED WHEELS LOCKED AND IN LOWEST POSITION.
[2022-10-11] MEDS: BLOOD GLUCOSE MONITORING 1 DEV DEV FS SCH ×3 (07:54→17:40)
[2022-10-11] MEDS: INSULIN LISPRO SLIDING SCALE 100 UNITS/ML VIAL SUBQ PRN ×3 (08:05→17:54)
[2022-10-11] MEDS: VALPROIC ACID 250 MG/5 ML UDC GT SCH ×2 (08:19→20:35)
[2022-10-11] MEDS: ACETAMINOPHEN 325 MG TAB PO PRN (08:19)
[2022-10-11] MEDS: PANTOPRAZOLE 40 MG INJ VIAL IVP SCH ×2 (08:20→20:35)
--- NOTE | 2022-10-11 13:10 | NUR ---
INITIATED CONTACT PRECAUTION FOR MRSA.
--- NOTE | 2022-10-11 13:20 | NUR ---
TUBE FEED RESIDUAL 20 ML. INCREASED FEEDING RATE TO 60 ML/HR.
[2022-10-11] MEDS: CHLORHEXADINE GLUC 2% CLOTH TP SCH (17:11)
[2022-10-11] MEDS: MUPIROCIN CA NASAL 2% 1GM TUBE NS SCH (17:11)
--- NOTE | 2022-10-11 19:25 | NUR ---
ENDORSED BEDSIDE REPORT TO BOBY, PHYSIATRIST RN, FOR CONTINUITY OF CARE.
[2022-10-12] VITALS (11 sets, daily range): BP systolic 111–149; BP diastolic 64–91
[2022-10-12] MEDS: PIPERACILLIN/TAZOBACTAM 2.25 GM in DEXTROSE 5% 50 ML IV SCH ×3 (00:32→12:02)
[2022-10-12] MEDS: BLOOD GLUCOSE MONITORING 1 DEV DEV FS SCH ×4 (00:33→17:51)
[2022-10-12] MEDS: Z-GUARD PASTE TP SCH ×2 (00:33→12:06)
[2022-10-12] MEDS: INSULIN LISPRO SLIDING SCALE 100 UNITS/ML VIAL SUBQ PRN ×3 (00:34→12:08)
[2022-10-12] MEDS: MIDODRINE 5 MG TAB PO SCH ×3 (06:24→19:00)
[2022-10-12 06:30] LABS: BASOPHILS % (AUTO) 0.3 % (0.0-2.0); EOSINOPHILS % (AUTO) 0.2 % (0.0-4.0); HEMATOCRIT 25.6 % (36-52); HEMOGLOBIN 8.3 g/dL (12.0-18.0); LYMPHOCYTES # (AUTO) 0.6 K/uL (2.0-11.5); LYMPHOCYTES % (AUTO) 4.3 % (20.5-51.1); MEAN CORPUSCULAR HEMOGLOBIN 30 pg (27-31); MEAN CORPUSCULAR HGB CONC 33 g/dL (33-37); MEAN CORPUSCULAR VOLUME 91.3 fL (80-94); MONOCYTES # (AUTO) 1.3 K/uL (0.8-1.0); MONOCYTES % (AUTO) 10.2 % (1.7-9.3); NEUTROPHILS # (AUTO) 10.9 K/uL (1.8-7.7); PLATELET COUNT (AUTO) 170 K/uL (140-450); RED CELL DISTRIBUTION WIDTH 17.8 % (11.6-13.7); WHITE BLOOD COUNT (AUTO) 12.8 K/uL (4.8-10.8)
[2022-10-12 06:39] LABS: ALBUMIN 1.7 g/dL (3.4-5.0); ANION GAP 19.3 (8-16); CARBON DIOXIDE 28.6 mmol/L (21-32); CREATININE 3.3 mg/dL (0.6-1.3); POTASSIUM 3.9 mmol/L (3.5-5.1); TOTAL BILIRUBIN 0.4 mg/dL (0.0-1.0)
--- NOTE | 2022-10-12 07:15 | NUR ---
RECEIVED BEDSIDE REPORT FROM BOBY, TRAVEL JOURNALIST RN FOR CONTINUITY OF CARE. PT A/OX0, PERRL. TRACH TO VENT A/C PRVC FIO2 30%, VT 450, RR 16, PEEP 5. SR ON MONITOR. 22G IV TO R HAND INFUSING NS TKO 5 ML/HR. LEVOPHED REMAINS OFF. G TUBE IN PLACE RECEIVING TUBE FEEDING AT 70 ML/HR FWF 150 ML Q6H. F/C TO GRAVITY DRAINING CLOUDY YELLOW URINE. GENERALIZED WEAKNESS. BILATERAL HEEL PROTECTOR BOOTS AND SCD'S IN PLACE. BED PUMP ON. CONTACT PRECAUTION. HOB 30 DEGREES. BED WHEELS LOCKED AND IN LOWEST POSITION.
--- NOTE | 2022-10-12 07:59 | NUR ---
RECEIVED ON A RPostSCAPE R860 VENTILATOR PLUGGED INTO RED OUTLET TOLERATING WELL WITHOUT ADVERSE REACTIONS NOTED TO A PORTEX DCT #8 AIRWAY SECURED WITH A TAM TRACH TIE CUFF PRESSURE CHECKED NOTED AMBU BAG AT BEDSIDE DEEP TRACHEAL SUCTION FOR COPIOUS SEMI THICK YELLOW/GREEN SECRETIONS AIRWAY PATENT
--- NOTE | 2022-10-12 09:10 | NUR ---
PT TRANSFERRED TO 122A.
--- NOTE | 2022-10-12 09:32 | NUR ---
PATIENT HAS BEEN SCREENED AND CATEGORIZED HIGH NUTRITION RISK. PATIENT WILL BE SEEN WITHIN 2-3 DAYS OF ADMISSION. 10/11/22-10/13/[address] REFERRAL RECEIVED FOR TUBE FEEDING
--- NOTE | 2022-10-12 11:35 | NUR ---
RESTING COMFORTABLY NO SOB NOTED GOOD CHEST RISE DEEP TRACHEAL SUCTION FIR LARGE THIN YELLOW/GREEN SECRETIONS AIRWAY PATENT
[2022-10-12] MEDS: VALPROIC ACID 250 MG/5 ML UDC GT SCH ×2 (11:55→22:25)
[2022-10-12] MEDS: PANTOPRAZOLE 40 MG INJ VIAL IVP SCH ×2 (11:56→22:14)
--- NOTE | 2022-10-12 12:00 | NUR ---
NURSE NOTES VSS. STOLL. TELE WITH
[2022-10-12] MEDS: MUPIROCIN CA NASAL 2% 1GM TUBE NS SCH (12:05)
[2022-10-12] MEDS: THERAHONEY GEL 42.5 GM TP SCH (13:00)
--- NOTE | 2022-10-12 13:08 | NUR ---
DEEP TRACHEAL SUCTION FOR MODERATE THIN YELLOW/GREEN SECRETIONS AIRWAY PATENT
--- NOTE | 2022-10-12 14:26 | NUR ---
10/12/22 RD FOLLOW UP COMPLETED.PLEASE REFER TO NUTRITION ASSESSMENT UNDER CARE ACTIVITY FOR ESTIMATED NUTRITIONAL NEEDS. 1. CONTINUE WITH GLUCERNA 1.2 @ 70 ML/HR, FWF 150 ML Q6H, CHIOMA BID PER RX PROTOCOL -WITH CHIOMA BID, PT WILL RECEIVE 2170KCAL, 106 G PROTEIN AND 1952ML FREE WATER; ADEQUATE 2. MONITOR NUTRITION-RELATED LAB VALUES 3. RD TO FOLLOW-UP 2-3 DAYS, HIGH RISK
[2022-10-12] MEDS ORDERED: LACTATED RINGERS 1,000 ML IV SCH (14:35)
--- NOTE | 2022-10-12 16:00 | NUR ---
NURSE NOTES VS TAKEN. AFEB. RESP 34. ON VENTILATOR TO TRACH. RT GAVE TREATMENT. GOWN AND LINEN CHANGED, SINCE TF LEAKING. CLEANSED. NO THERAHONEY AND PHARMACY DIDN'T SEND . CAME FROM ICU 2.
--- NOTE | 2022-10-12 17:33 | NUR ---
IRRITABLE FAMILY MEMBER AT BEDSIDE GOOD CHEST RISE DEEP TRACHEAL SUCTION FOR MODERATE THIN YELLOW/GREEN SECRETIONS AIRWAY PATENT
[2022-10-12] MEDS: NACL 0.9% 1,000 ML IV SCH (17:36)
[2022-10-12] MEDS: CHLORHEXADINE GLUC 2% CLOTH TP SCH (17:38)
[2022-10-12] MEDS: DEXTROSE 50% 50 ML SYR IVP PRN (17:45)
--- NOTE | 2022-10-12 18:30 | NUR ---
NURSE NOTES BG 154. HAD D50 AT 4844
--- NOTE | 2022-10-12 18:45 | NUR ---
NURSE NOTES BLOOD GLUCOSE 51. GIVEN D50. WILL REPEAT BG. Addendum: 10/12/22 at 1947 by Agency 04 ERMIAS RN BG DONE AT 1745- 51 AND NOT 1845.
--- NOTE | 2022-10-12 19:40 | NUR ---
NURSE REPORT REPORT GIVEN TO NIGHT NURSE NELSY TO ASSUME CARE OF PATIENT. ALL QUESTIONS ANSWERED. PILO AMARAL RN
[2022-10-12] MEDS ORDERED: PIPERACILLIN/TAZOBACTAM 2.25 GM in DEXTROSE 5% 50 ML IV SCH (21:00)
[2022-10-12] MEDS ORDERED: TOBRAMYCIN PER PHARMACY MC PRN (21:40)
[2022-10-12] MEDS: ALBUMIN HUMAN 25% 100 ML IV SCH (22:10)
[2022-10-12] MEDS ORDERED: TOBRAMYCIN 80 MG/2 ML VIAL ONE (23:58)
[2022-10-13] VITALS: BP 132/82
--- NOTE | 2022-10-13 | NUR ---
rounds , nom s/sx of acute distress noted .
[2022-10-13] MEDS: BLOOD GLUCOSE MONITORING 1 DEV DEV FS SCH ×4 (00:03→18:20)
[2022-10-13] MEDS ORDERED: TOBRAMYCIN 120 MG in DEXTROSE 5% 100 ML IV ONE (00:30)
[2022-10-13] MEDS: Z-GUARD PASTE TP SCH ×2 (01:48→13:00)
[2022-10-13 04:00] VITALS: BP 140/70
--- NOTE | 2022-10-13 04:00 | NUR ---
o2 sat wnl , no s/sx of acute distress noted .
[2022-10-13 05:48] LABS: BASOPHILS % (AUTO) 0.3 % (0.0-2.0); EOSINOPHILS # (AUTO) 0.1 K/uL (0-0.4); EOSINOPHILS % (AUTO) 0.9 % (0.0-4.0); HEMOGLOBIN 8.4 g/dL (12.0-18.0); LYMPHOCYTES # (AUTO) 0.6 K/uL (2.0-11.5); LYMPHOCYTES % (AUTO) 6.9 % (20.5-51.1); MEAN CORPUSCULAR HEMOGLOBIN 30 pg (27-31); MEAN CORPUSCULAR HGB CONC 32 g/dL (33-37); MEAN CORPUSCULAR VOLUME 91.9 fL (80-94); MONOCYTES # (AUTO) 0.9 K/uL (0.8-1.0); MONOCYTES % (AUTO) 9.7 % (1.7-9.3); NEUTROPHILS # (AUTO) 7.7 K/uL (1.8-7.7); NEUTROPHILS % (AUTO) 82.2 % (42.2-75.2); PLATELET COUNT (AUTO) 154 K/uL (140-450); RED BLOOD CELL COUNT(AUTO) 2.83 MIL/uL (4.20-6.10); WHITE BLOOD COUNT (AUTO) 9.4 K/uL (4.8-10.8)
--- NOTE | 2022-10-13 06:00 | NUR ---
o2 sat wnl , sr , nos/sx of acute distress noted .
[2022-10-13 06:03] LABS: ALBUMIN 2.1 g/dL (3.4-5.0); ANION GAP 16.4 (8-16); CARBON DIOXIDE 29.8 mmol/L (21-32); CREATININE 3.2 mg/dL (0.6-1.3); POTASSIUM 3.2 mmol/L (3.5-5.1); TOTAL BILIRUBIN 0.4 mg/dL (0.0-1.0)
[2022-10-13] MEDS: NACL 0.9% 1,000 ML IV SCH ×2 (06:10→20:36)
[2022-10-13] MEDS: ALBUMIN HUMAN 25% 100 ML IV SCH ×2 (06:14→13:37)
--- NOTE | 2022-10-13 06:18 | NUR ---
REFERRED TO DR. PATIÑO FOR RESTRAINST RENEWAL ORDER . RELAYED TI DR. PATIÑO [facility]. VALUE , WILL WAIT FURTHER ORDERS .
[2022-10-13] MEDS: INSULIN LISPRO SLIDING SCALE 100 UNITS/ML VIAL SUBQ PRN ×3 (06:49→18:45)
[2022-10-13] MEDS: MIDODRINE 5 MG TAB PO SCH ×3 (07:00→19:00)
--- NOTE | 2022-10-13 07:30 | NUR ---
endorsed to am nurse for cont. of care . i endorsed to am nurse he have to ff up my text to dr. xiong if there is further orders from him , morning nurse verbalizes understanding . informed dr. xiong bs 433 i gave 10 u hum[address]og sq .-
--- NOTE | 2022-10-13 07:31 | NUR ---
RECEIVED PATIENT FROM PM NURSE FOR CONTINUATION OF CARE. PATIENT SEEN ASLEEP. VENTILATOR CONNECTED WITH RISE AND FALL OF CHEST. PLAN OF CARE STARTED. PATIENT MONITORING AND CARE RESUMED.
[2022-10-13 08:00] VITALS: BP 132/67
--- NOTE | 2022-10-13 08:45 | NUR ---
RECEIVED ON A [employer] R860 VENTILATOR PLUGGED INTO RED OUTLET TOLERATING WELL WITHOUT COMPLICATIONS NOTED TO A PORTEX DCT #8 AIRWAY SECURED WITH A TAM TRACH TIE CUFF PRESSURE CHECKED NOTED AMBU BAG AT BEDSIDE STABLE GOOD CHEST RISE DEEP TRACHEAL SUCTION FOR SMALL SEMI THICK YELLOW SECRETIONS AIRWAY PATENT
[2022-10-13] MEDS: PANTOPRAZOLE 40 MG INJ VIAL IVP SCH ×2 (10:02→20:38)
[2022-10-13] MEDS: VALPROIC ACID 250 MG/5 ML UDC GT SCH ×2 (10:02→20:35)
[2022-10-13] MEDS: LINEZOLID 600MG PREMIX 300 ML IV SCH ×2 (10:02→20:39)
[2022-10-13] MEDS ORDERED: KCL 20 MEQ IN 100 mL PREMIX 200 ML IV ONE (10:09)
[2022-10-13 12:00] VITALS: BP 147/55
[2022-10-13] MEDS: THERAHONEY GEL 42.5 GM TP SCH (13:00)
--- NOTE | 2022-10-13 13:30 | NUR ---
PATIENT'S GOWN AND SHEETS CHANGED. PATIENT REPOSITIONED. SACRAL DRESSING FOR GRADE 1 PRESSURE ULCER CHANGED. PATIENT VITALS STABLE. PATIENT RESTING ASLEEP, VENTILATOR SHOWING 100% O2 SATURATION.
[2022-10-13] MEDS: MUPIROCIN CA NASAL 2% 1GM TUBE NS SCH (14:28)
[2022-10-13] MEDS: CHLORHEXADINE GLUC 2% CLOTH TP SCH (14:29)
--- NOTE | 2022-10-13 14:41 | NUR ---
STABLE RESTING WELL GOOD CHEST RISE DEEP TRACHEAL SUCTION FOR SMALL THIN YELLOW SECRETIONS AIRWAY PATENT
[2022-10-13 16:00] VITALS: BP 139/71
--- NOTE | 2022-10-13 19:30 | NUR ---
RECEIVED PT FROM AM NURSE FOR CONTINUITY OF CARE. PT IS STABLE
[2022-10-13 20:00] VITALS: BP 125/55
[2022-10-13] MEDS ORDERED: INSULIN LANTUS 100 UNITS/ML 10 ML VIAL SUBQ SCH (21:00)
[2022-10-14] VITALS: BP 119/67
[2022-10-14] MEDS: Z-GUARD PASTE TP SCH ×2 (00:54→13:04)
--- NOTE | 2022-10-14 01:48 | NUR ---
TRACH CARE DONE. PT HAS LARGE AMTS OF COPIOUS THICK YELLOW SECRETIONS.
[2022-10-14 04:00] VITALS: BP 118/55
[2022-10-14] MEDS: DEXTROSE 50% 50 ML SYR IVP PRN (05:27)
[2022-10-14 05:46] LABS: BASOPHILS % (AUTO) 0.3 % (0.0-2.0); EOSINOPHILS # (AUTO) 0.2 K/uL (0-0.4); EOSINOPHILS % (AUTO) 2.5 % (0.0-4.0); HEMATOCRIT 23.6 % (36-52); LYMPHOCYTES # (AUTO) 0.8 K/uL (2.0-11.5); LYMPHOCYTES % (AUTO) 8.5 % (20.5-51.1); MEAN CORPUSCULAR HEMOGLOBIN 31 pg (27-31); MEAN CORPUSCULAR HGB CONC 34 g/dL (33-37); MEAN CORPUSCULAR VOLUME 90.4 fL (80-94); MONOCYTES % (AUTO) 10.3 % (1.7-9.3); NEUTROPHILS # (AUTO) 7.4 K/uL (1.8-7.7); NEUTROPHILS % (AUTO) 78.4 % (42.2-75.2); PLATELET COUNT (AUTO) 142 K/uL (140-450); RED BLOOD CELL COUNT(AUTO) 2.61 MIL/uL (4.20-6.10); RED CELL DISTRIBUTION WIDTH 17.3 % (11.6-13.7); WHITE BLOOD COUNT (AUTO) 9.4 K/uL (4.8-10.8)
[2022-10-14] MEDS: BLOOD GLUCOSE MONITORING 1 DEV DEV FS SCH ×4 (06:00→17:49)
[2022-10-14 06:01] LABS: ALBUMIN 2.6 g/dL (3.4-5.0); ANION GAP 13.1 (8-16); CARBON DIOXIDE 33.9 mmol/L (21-32); CREATININE 2.8 mg/dL (0.6-1.3); TOTAL BILIRUBIN 0.3 mg/dL (0.0-1.0)
--- NOTE | 2022-10-14 06:20 | NUR ---
MESSAGED MD REGARDING PATIENT'S POTASSIUM LEVEL OF 3.0, AWAITING RESPONSE
[2022-10-14] MEDS: MIDODRINE 5 MG TAB PO SCH ×3 (06:31→19:00)
--- NOTE | 2022-10-14 07:15 | NUR ---
RECEIVED REPORT FROM GUIDANCE CONSULTANT NURSE FOR CONTINUITY OF CARE. PT STABLE AT THIS TIME.
--- NOTE | 2022-10-14 07:20 | NUR ---
ENDORSED PT TO AM NURSE FOR CONTINUITY OF CARE. PT IS STABLE
[2022-10-14 08:00] VITALS: BP 145/67
[2022-10-14] MEDS: VALPROIC ACID 250 MG/5 ML UDC GT SCH ×2 (09:27→20:19)
[2022-10-14] MEDS: POTASSIUM CHLORIDE 20% 40 MEQ/15 ML UDC GT PRN (09:29)
[2022-10-14] MEDS: LINEZOLID 600MG PREMIX 300 ML IV SCH ×2 (09:29→20:24)
[2022-10-14] MEDS: PANTOPRAZOLE 40 MG INJ VIAL IVP SCH ×2 (09:29→20:20)
[2022-10-14] MEDS: NACL 0.9% 1,000 ML IV SCH (09:49)
[2022-10-14 12:00] VITALS: BP 155/69
[2022-10-14] MEDS: THERAHONEY GEL 42.5 GM TP SCH (13:04)
[2022-10-14] MEDS: MUPIROCIN CA NASAL 2% 1GM TUBE NS SCH (14:16)
[2022-10-14] MEDS: CHLORHEXADINE GLUC 2% CLOTH TP SCH (14:16)
[2022-10-14 16:00] VITALS: BP 144/67
--- NOTE | 2022-10-14 19:20 | NUR ---
ENDORSED PT TO PROFESSIONAL BASS FISHERMAN NURSE FOR CONTINUITY OF CARE. PT STABLE AT THIS TIME.
--- NOTE | 2022-10-14 19:25 | NUR ---
RECEIVED PATIENT FROM NURSE FOR CONTINUITY OF CARE.PT IN STABLE CONDITION
[2022-10-14 20:00] VITALS: BP 118/52
[2022-10-14] MEDS: INSULIN LANTUS 100 UNITS/ML 10 ML VIAL SUBQ SCH (23:23)
[2022-10-15] VITALS: BP 111/53
[2022-10-15] MEDS: Z-GUARD PASTE TP SCH ×2 (01:38→13:30)
[2022-10-15] MEDS: INSULIN LISPRO SLIDING SCALE 100 UNITS/ML VIAL SUBQ PRN ×3 (01:39→17:52)
--- NOTE | 2022-10-15 02:00 | NUR ---
PATIENT ASLEEP, NO DISTRESS NOTED
[2022-10-15] MEDS: TOBRAMYCIN 80 MG in DEXTROSE 5% 100 ML IV SCH (02:45)
[2022-10-15 04:00] VITALS: BP 107/65
[2022-10-15 05:18] LABS: BASOPHILS % (AUTO) 0.2 % (0.0-2.0); EOSINOPHILS # (AUTO) 0.2 K/uL (0-0.4); EOSINOPHILS % (AUTO) 1.4 % (0.0-4.0); HEMATOCRIT 24.2 % (36-52); HEMOGLOBIN 7.7 g/dL (12.0-18.0); LYMPHOCYTES # (AUTO) 0.9 K/uL (2.0-11.5); LYMPHOCYTES % (AUTO) 8.1 % (20.5-51.1); MEAN CORPUSCULAR HEMOGLOBIN 29 pg (27-31); MEAN CORPUSCULAR HGB CONC 32 g/dL (33-37); MEAN CORPUSCULAR VOLUME 91.8 fL (80-94); MONOCYTES # (AUTO) 1.2 K/uL (0.8-1.0); MONOCYTES % (AUTO) 10.5 % (1.7-9.3); NEUTROPHILS # (AUTO) 8.8 K/uL (1.8-7.7); NEUTROPHILS % (AUTO) 79.8 % (42.2-75.2); PLATELET COUNT (AUTO) 128 K/uL (140-450); RED BLOOD CELL COUNT(AUTO) 2.64 MIL/uL (4.20-6.10); RED CELL DISTRIBUTION WIDTH 17.9 % (11.6-13.7)
[2022-10-15 05:23] LABS: ALBUMIN 2.3 g/dL (3.4-5.0); ANION GAP 11.4 (8-16); CARBON DIOXIDE 34.9 mmol/L (21-32); CREATININE 2.5 mg/dL (0.6-1.3); POTASSIUM 3.3 mmol/L (3.5-5.1); TOTAL BILIRUBIN 0.3 mg/dL (0.0-1.0)
[2022-10-15] MEDS: POTASSIUM CHLORIDE 20% 40 MEQ/15 ML UDC GT PRN (05:45)
[2022-10-15] MEDS: BLOOD GLUCOSE MONITORING 1 DEV DEV FS SCH ×4 (06:01→17:50)
[2022-10-15] MEDS: MIDODRINE 5 MG TAB PO SCH ×3 (06:50→21:21)
--- NOTE | 2022-10-15 07:15 | NUR ---
RECEIVED REPORT FROM ELECTRICAL AND INSTRUMENT ENGINEER NURSE FOR CONTINUITY OF CARE. PT STABLE AT THIS TIME.
--- NOTE | 2022-10-15 07:30 | NUR ---
RECEIVED ON A BacterioscanSCAPE R860 VENTILATOR PLUGGED INTO RED OUTLET TOLERATING WELL WITHOUT ADVERSE REACTIONS NOTED TO A PORTEX DCT #8 AIRWAY SECURED WITH A TAM TRACH TIE CUFF PRESSURE CHECKED NOTED AMBU BAG AT BEDSIDE STABLE GOOD CHEST RISE DEEP TRACHEAL SUCTION FOR LARGE THICK YELLOW SECRETIONS AIRWAY PATENT
[2022-10-15 08:00] VITALS: BP 142/61
[2022-10-15] MEDS: VALPROIC ACID 250 MG/5 ML UDC GT SCH ×2 (09:15→21:22)
[2022-10-15] MEDS: LINEZOLID 600MG PREMIX 300 ML IV SCH ×2 (09:21→21:08)
[2022-10-15] MEDS: PANTOPRAZOLE 40 MG INJ VIAL IVP SCH ×2 (09:21→21:15)
--- NOTE | 2022-10-15 09:50 | NUR ---
TRIED TO FLUSH THE PATIENTS G-TUBE AND IT WAS NOT FLUSHING. AFTER PUSHING, ASPIRATING AND MILKING THE LINE I WAS ABLE TO FLUSH THE LINE AND ADMINISTER THE PATIENTS MEDICATION.
--- NOTE | 2022-10-15 10:30 | NUR ---
ASKED THE WOUND CARE NURSE IF SHE COULD TAKE A LOOK AT THE PATIENTS RIGHT ARM BECAUSE IT WAS SWOLLEN AND HAS BLISTERS ON IT. PT HAS +3 EDEMA IN HIS ARM AND HAND ON THE THE RIGHT SIDE.
--- NOTE | 2022-10-15 10:38 | NUR ---
PRIMARY RN KAREN REPORT JT TO RIGHT FOREARM BLISTERING SKIN. MULTIPLE CLEAR FLUIDS BLISTERING SKIN FROM ELBOW TO WRIST, LATERAL TO ANTERIOR AREA. AREA NOT SWELLING, NORMAL SKIN TEMPERATURE. AREA CLEANSE WITH NS, PAT DRY GENTLY, APPLY XEROFORM DRESSING, COVER WITH ABD PAD AND WRAP WITH KERLIX ROLL LOOSELY, SECURED WITH TAPE. RECOMMEND DRESSING 3X/WEEK ON MWF. POC DISCUSSED WITH PRIMARY RN.
--- NOTE | 2022-10-15 10:50 | NUR ---
WOUND CARE NURSE SAW THE PATIENT AND DETERMINED THAT WE NEED TO STOP USING THAT ARM FOR THE IV AND SHE PLACED ABDOMINAL PADS, MEDICATED GAUZE AND CURALEX ON FOREARM OF PATIENT WHERE THE BLISTER HAD FORMED.
--- NOTE | 2022-10-15 11:19 | NUR ---
STABLE GOOD CHEST RISE LEONARD[ TRACHEAL SUCTION FOR SMALL THICK YELLOW/GREEN SECRETIONS AIRWAY PATENT Addendum: 10/15/22 at 1138 by Hugo Macedo RT LEONARD[ = DEEP
--- NOTE | 2022-10-15 11:38 | NUR ---
REVIEWED DR. ZOHAIB PICKERING CRTICAL CARE NOTES TODAY AT 0959; WEAN VENTILATOR TOLERATED; OXYGEN SATURATION GREATER THAN 88%
[2022-10-15 12:00] VITALS: BP 148/68
[2022-10-15] MEDS: THERAHONEY GEL 42.5 GM TP SCH (13:30)
--- NOTE | 2022-10-15 14:00 | NUR ---
ADMINISTERED BACTROBAN IN THE NARES AND WIPED PT DOWN WITH CHLORHEXIDINE WIPES. I ALSO REPLACED THE RICHA VALVE AND HUNG A NEW BOTTLE OF GLUCERNIA WITH NEW TUBING.
--- NOTE | 2022-10-15 14:09 | NUR ---
10/15/22 RD FOLLOW UP COMPLETED PLEASE REFER TO NUTRITION ASSESSMENT UNDER CARE ACTIVITY FOR ESTIMATED NUTRITIONAL NEEDS. 1. CONTINUE WITH GLUCERNA 1.2 @ 70 ML/HR, FWF 150 ML Q6H, CHIOMA BID PER RX PROTOCOL -WITH CHIOMA BID, PT WILL RECEIVE 2170KCAL, 106G PROTEIN AND 1952ML FREE WATER MEETING 100% ESTIMATED KCAL AND PROTEIN NEEDS; ADEQUATE 2. MONITOR NUTRITION-RELATED LAB VALUES 3. RD TO FOLLOW-UP 3-5 DAYS, MODERATE RISK REVIEWED BY NELLIE ERICKSON RD
[2022-10-15] MEDS: MUPIROCIN CA NASAL 2% 1GM TUBE NS SCH (14:24)
[2022-10-15] MEDS: CHLORHEXADINE GLUC 2% CLOTH TP SCH (14:25)
[2022-10-15 16:00] VITALS: BP 141/65
--- NOTE | 2022-10-15 17:47 | NUR ---
STABLE GOOD CHEST RISE DEEP TRACHEAL SUCTION FOR SMALL THIN YELLOW.GREEN SECRETIONS AIRWAY PATENT
--- NOTE | 2022-10-15 19:24 | NUR ---
ENDORSED PT TO SENIOR SOFTWARE DEVELOPER NURSE FOR CONTINUITY OF CARE. PT STABLE AT THIS TIME.
[2022-10-15 20:00] VITALS: BP 113/68
[2022-10-15] MEDS: ACETAMINOPHEN 325 MG TAB PO PRN (21:21)
[2022-10-15] MEDS: INSULIN LANTUS 100 UNITS/ML 10 ML VIAL SUBQ SCH (21:23)
--- NOTE | 2022-10-15 21:43 | NUR ---
PM NURSING NARRATIVE (OPENING) 1930 HANDOFF REPORT RECEIVED FROM KAREN LOUIS FOR CONTINUITY OF CARE WITH BEDSIDE ROUNDS FOLLOWING. REPORTED: PT RIGHT ARM SKIN RASH NOTED AND DRESSED BY WOUND CARE NURSE, SHAKES HEAD OFTEN FROM SIDE TO SIDE AND TAKE NOTE OF BLOOD SUGARS THEY HAVE DIPPED INTO THE THE 50'S AND 30'S IN THE NEAR PAST. PT RECEIVED ON VENT TO TRACH. NOTED GOOD CHEST RISE AND FALL. VENT SETTINGS: FI02 35, TV 450, PEEP 5, RATE 15. TUBE FEEDING GLUCERNA 1.2 70 ML/H H20 FLUSH 150 ML/Q6. LEGS ELEVATED ON PILLOW. PLAN OF CARE FOR THIS EVENING: MEDS SCHEDULED AND TURN Q2/H. SHELLEY CARE AND SKIN CHECKS TO PRESSURE AREAS. NO ACUTE DISTRESS NOTED. CONTINUE TO MONITOR.
--- NOTE | 2022-10-15 22:23 | NUR ---
5 FEVER 102.0 (ORAL) TYLENOL 650 MG VIA G TUBE.
--- NOTE | 2022-10-15 22:51 | NUR ---
FEVER REDUCTION ORAL TEMP 99.8. TYLENOL EFFECTIVE
--- NOTE | 2022-10-15 22:52 | NUR ---
2129 RT CONTACTED REGARDING VENT READING OF 39 FOR RESPIRATORY RATE. INFORMED PT OFTEN HAS TACHYPNEA EPISODES. RATE REMAINS SET AT 16. HE OVER RIDES OFTEN. NON SUSTAINED.
[2022-10-16] VITALS: BP 114/63
[2022-10-16] MEDS: Z-GUARD PASTE TP SCH ×2 (01:00→12:58)
[2022-10-16 04:00] VITALS: BP 141/65
[2022-10-16 05:41] LABS: BASOPHILS % (AUTO) 0.2 % (0.0-2.0); EOSINOPHILS # (AUTO) 0.3 K/uL (0-0.4); EOSINOPHILS % (AUTO) 2.6 % (0.0-4.0); HEMATOCRIT 26.6 % (36-52); HEMOGLOBIN 8.5 g/dL (12.0-18.0); LYMPHOCYTES # (AUTO) 0.8 K/uL (2.0-11.5); LYMPHOCYTES % (AUTO) 8.3 % (20.5-51.1); MEAN CORPUSCULAR HEMOGLOBIN 30 pg (27-31); MEAN CORPUSCULAR HGB CONC 32 g/dL (33-37); MEAN CORPUSCULAR VOLUME 92.3 fL (80-94); MONOCYTES # (AUTO) 1.2 K/uL (0.8-1.0); MONOCYTES % (AUTO) 12.3 % (1.7-9.3); NEUTROPHILS # (AUTO) 7.5 K/uL (1.8-7.7); NEUTROPHILS % (AUTO) 76.6 % (42.2-75.2); PLATELET COUNT (AUTO) 122 K/uL (140-450); RED BLOOD CELL COUNT(AUTO) 2.89 MIL/uL (4.20-6.10); RED CELL DISTRIBUTION WIDTH 17.2 % (11.6-13.7); WHITE BLOOD COUNT (AUTO) 9.8 K/uL (4.8-10.8)
[2022-10-16] MEDS: MIDODRINE 5 MG TAB PO SCH ×3 (05:41→19:12)
[2022-10-16] MEDS: BLOOD GLUCOSE MONITORING 1 DEV DEV FS SCH ×4 (05:41→18:00)
[2022-10-16 05:46] LABS: ALBUMIN 2.2 g/dL (3.4-5.0); ANION GAP 10.7 (8-16); CARBON DIOXIDE 33.8 mmol/L (21-32); CREATININE 2.3 mg/dL (0.6-1.3); POTASSIUM 3.5 mmol/L (3.5-5.1); TOTAL BILIRUBIN 0.2 mg/dL (0.0-1.0)
--- NOTE | 2022-10-16 07:30 | NUR ---
0730 PM NARRATIVE (CLOSING) HAND-OFF REPORT TO ON-COMING NURSE EFFIE MONSON FOR CONTINUITY OF CARE FOLLOWED BY BEDSIDE ROUNDS. ENDORSED PRO HELD THIS A.M, RE: B/P= 170/68, RESTRAINTS RENEWED, TEMP SPIKE 102 AT HS NOW 98.9. RELINQUISHED CARE OF PT.
--- NOTE | 2022-10-16 07:30 | NUR ---
RECEIVED REPORT FROM NIGHTSHIFT NURSE. PT IS ASLEEP IN BED, WOKE TO NAME AND TOUCH, NO SIGNS OF DISTRESS, NO REPORTS/SIGNS OF PAIN OR DISCOMFORT, PT RETURNED TO SLEEP, VITAL SIGNS STABLE, NO FURTHER NEEDS ARE TO BE MET AT THIS TIME, WILL CONTINUE WITH CARE.
[2022-10-16 08:00] VITALS: BP 157/69
[2022-10-16] MEDS: LINEZOLID 600MG PREMIX 300 ML IV SCH ×2 (09:08→20:18)
[2022-10-16] MEDS: VALPROIC ACID 250 MG/5 ML UDC GT SCH ×2 (09:08→20:18)
[2022-10-16] MEDS: PANTOPRAZOLE 40 MG INJ VIAL IVP SCH ×2 (09:09→20:18)
[2022-10-16 12:00] VITALS: BP 146/62
[2022-10-16] MEDS: THERAHONEY GEL 42.5 GM TP SCH (12:58)
[2022-10-16] MEDS: LORazepam 2 MG/ML VIAL IVP PRN (15:00)
[2022-10-16] MEDS: ACETAMINOPHEN 325 MG TAB PO PRN ×2 (15:04→20:18)
[2022-10-16 16:00] VITALS: BP 116/58
--- NOTE | 2022-10-16 19:30 | NUR ---
PT BLOOD GLUCOSE LOW, D5 PROVIDED. BLOOD GLUCOSE NOW AT 131. PT IS RESTING IN BED, NO SIGNS OF DISTRESS. ENDORSED PT TO NIGHTSHIFT NURSE FOR CONTINUITY OF CARE.
--- NOTE | 2022-10-16 19:36 | NUR ---
REPORT GIVEN BY AM NURSE, PT'S BS-12, GIVEN D50. INFORMED DR. TANNER OF BS AND RESIDUAL OF 200 ML FROM G-RUBE. NEW ORDER FOR IVF OF D5 1/2 NS AT 30 ML/HR.
[2022-10-16] MEDS ORDERED: DEXT 5% / NACL 0.45% 1,000 ML IV SCH (19:40)
--- NOTE | 2022-10-16 19:56 | NUR ---
BS- REPEATED BY AM NURSE-112 MG/DL, PATIENT NOTED TO BE SHAKING HEAD SIDE TO SIDE. NO S/SX OF PAIN NOR DISCOMFORT. TRACH TO VENT WITH SETTING ORDERED SAT AT 98%. NO ACUTE RESPIRATORY DISTRESS NOTED. G-TUBE VERIFIED VIA AUSCULTATION, FEEDING ON HOLD AT THIS TIME DUE TO INCREASE RESIDUAL, HEAD OF THE BED ELEVATED,.SKIN WARM AND DRY TO TOUCH. SAFETY PRECAUTIONS IN PLACE, CALL LIGHT IN REACH.
[2022-10-16 20:00] VITALS: BP 145/61
[2022-10-16] MEDS: INSULIN LANTUS 100 UNITS/ML 10 ML VIAL SUBQ SCH (20:20)
--- NOTE | 2022-10-16 22:14 | NUR ---
SPO2 100%. TITRATED FiO2 FROM 50% TO 40%. PT TOLERATING WELL AT THIS TIME. RN NOTIFIED
[2022-10-17] VITALS: BP 131/63
--- NOTE | 2022-10-17 | NUR ---
BS-76 MG/DL. NO S/SX OF HYPO/HYPERGLYCEMIA. 10 ML FROM RESIDUAL FROM G-TUBE, RESTARTED FEEDING, HEAD OF THE BED ELEVATED. PT NOW AFEBRILE.
[2022-10-17] MEDS: BLOOD GLUCOSE MONITORING 1 DEV DEV FS SCH ×4 (00:29→17:55)
[2022-10-17] MEDS: Z-GUARD PASTE TP SCH ×2 (01:11→13:03)
[2022-10-17] MEDS: TOBRAMYCIN 80 MG in DEXTROSE 5% 100 ML IV SCH (01:12)
--- NOTE | 2022-10-17 03:20 | NUR ---
SPO2 99%. TITRATED FiO2 FROM 40% TO 35%. PT TOLERATING WELL AT THIS TIME. RN NOTIFIED
[2022-10-17 03:35] LABS: BASOPHILS # (AUTO) 0.1 K/uL (0.00-0.22); BASOPHILS % (AUTO) 1.4 % (0.0-2.0); EOSINOPHILS # (AUTO) 0.2 K/uL (0-0.4); EOSINOPHILS % (AUTO) 2.4 % (0.0-4.0); HEMATOCRIT 24.3 % (36-52); HEMOGLOBIN 7.7 g/dL (12.0-18.0); LYMPHOCYTES # (AUTO) 0.9 K/uL (2.0-11.5); LYMPHOCYTES % (AUTO) 9.4 % (20.5-51.1); MEAN CORPUSCULAR HEMOGLOBIN 30 pg (27-31); MEAN CORPUSCULAR HGB CONC 32 g/dL (33-37); MEAN CORPUSCULAR VOLUME 92.8 fL (80-94); MONOCYTES # (AUTO) 1.2 K/uL (0.8-1.0); MONOCYTES % (AUTO) 13.6 % (1.7-9.3); NEUTROPHILS # (AUTO) 6.7 K/uL (1.8-7.7); NEUTROPHILS % (AUTO) 73.2 % (42.2-75.2); PLATELET COUNT (AUTO) 110 K/uL (140-450); RED BLOOD CELL COUNT(AUTO) 2.62 MIL/uL (4.20-6.10); WHITE BLOOD COUNT (AUTO) 9.1 K/uL (4.8-10.8)
[2022-10-17 03:51] LABS: ALBUMIN 2.1 g/dL (3.4-5.0); ANION GAP 8.6 (8-16); CREATININE 2.4 mg/dL (0.6-1.3); POTASSIUM 3.6 mmol/L (3.5-5.1); TOTAL BILIRUBIN 0.2 mg/dL (0.0-1.0)
[2022-10-17 04:00] VITALS: BP 148/64
--- NOTE | 2022-10-17 05:00 | NUR ---
AM CARE RENDERED, ORAL CARE DONE. G-TUBE SITE CLEANED AND CHANGED DRESSING. MADE COMFORTABLE IN BED, HEAD OF THE BED ELEVATED.
[2022-10-17] MEDS: INSULIN LISPRO SLIDING SCALE 100 UNITS/ML VIAL SUBQ PRN ×2 (05:09→12:43)
[2022-10-17] MEDS: MIDODRINE 5 MG TAB PO SCH ×2 (06:09→13:07)
--- NOTE | 2022-10-17 06:23 | NUR ---
PATIENT IS ASLEEP. ALL NEEDS ATTENDED TO. NO RESPIRATORY DISTRESS NOTED. NO RESIDUAL FROM G-TUBE AT THIS TIME, FEEDING TOLERATED WELL. SAFETY PRECAUTIONS MAINTAINED DURING THE SHIFT.
--- NOTE | 2022-10-17 07:10 | NUR ---
RECEIVED REPORT FROM NIGHTSHIFT NURSE. PT IS ASLEEP IN BED, WOKE TO NAME AND TOUCH. PT NONVERBAL. NO SIGNS OF DISTRESS. WILL CONTINUE WITH PATIENT CARE. BED IN LOWEST POSITION, 2 SIDE RAILS UP.
[2022-10-17 08:00] VITALS: BP 152/70
[2022-10-17] MEDS: VALPROIC ACID 250 MG/5 ML UDC GT SCH (09:20)
[2022-10-17] MEDS: LINEZOLID 600MG PREMIX 300 ML IV SCH (09:20)
[2022-10-17] MEDS: PANTOPRAZOLE 40 MG INJ VIAL IVP SCH (09:20)
--- NOTE | 2022-10-17 10:35 | NUR ---
WOUND CARE RE-EVALUATION NOTE: SKIN ASSESSMENT DONE WITH PRIMARY RN EFFIE AND SOHA. NEW BLISTERING SKIN TO RIGHT DORSAL HAND WITH PERIPHERAL IV IN PLACE. WOUND PHOTO OBTAINED BY PRIMARY RN. QUESTION OF IV INFILTRATION. POC DISCUSSED WITH ERMIAS CHOU AND CHARGE NURSE SHIMA. LEFT DORSAL HAND PERIPHERAL IV SITE, DRY CLEAN NO BLISTERING SKIN. PREVIOUS ASSESSMENT TO SACRALCOCCYX SHELLEY-WOUND DENUDED SKIN OFF,DTI WOUND MERGED WITH SACRAL WOUND ANTICIPATION FROM LAST WEEK FURTHER DAMAGE WITH INCREASING WOUND SIZE. POC DISCUSSED WITH PRIMARY RN AND DCS ENGINEER TO KEEP PT. DRY AND CLEAN OFFLOADING SACRALCOCCYX AND HEELS. WILL CONTINUE CURRENT TREATMENT. -RIGHT FOREARM AND RIGHT DORSAL HAND BLISTERING SKIN ,BLISTERS INTACT. -MODERATE MOISTURE ASSOCIATED SKIN DAMAGE(MASD) TO SCROTAL, SHELLEY-ANAL SKIN REDNESS WITH MULTIPLE EROSIONS IMPROVING -COCCYX PRESSURE INJURY STAGE 3 WITH 3X2X0.1CM 100% RED TISSUE, MOIST, NO ODOR, SHELLEY-WOUND SKIN MOIST/PINK SCAR TISSUE. -RIGHT ( BELOW ) TROCHANTER PRESSURE INJURY STAGE 2, RESOLVED.100% PINK SCAR TISSUE DRY, NO ODOR, SHELLEY WOUND SKIN INTACT -BILATERAL HEELS MUSHY LEFT MEDIAL HEEL PEELING SKIN BLANCHABLE REDNESS 1X1.5CM
--- NOTE | 2022-10-17 10:36 | NUR ---
WOUND CARE TO RIGHT HAND BLISTER DONE. DRESSING APPLIED LOOSELY INSTRUCTED BY WOUND CARE NURSE. WOUND DOCUMENTATION DONE, PICTURES TAKEN AND PUT INTO PT CHART. PT IS RESTING IN BED, NO SIGNS OF DISTRESS. WILL CONTINUE WITH PATIENT CARE.
[2022-10-17 12:00] VITALS: BP 159/69
[2022-10-17] MEDS ORDERED: LINE600I6 IV (12:57)
[2022-10-17] MEDS ORDERED: [UNRECOGNIZED DRUG - CODE] IV (12:57)
[2022-10-17] MEDS ORDERED: NON ADHERENT DRESSING TP SCH (13:00)
[2022-10-17] MEDS: THERAHONEY GEL 42.5 GM TP SCH (13:02)
[2022-10-17 14:15] VITALS: BP 159/69
[2022-10-17 16:00] VITALS: BP 155/59
--- NOTE | 2022-10-17 18:00 | NUR ---
PREPARED PT FOR DISCHARGE. SPOKE WITH NURSE FROM [facility], GAVE FULL REPORT. [facility] CAME TO TRANSFER PT TO [facility] VIA GURNEY. PT VITAL SIGNS STABLE. NO SIGNS OF DISTRESS UPON DISCHARGE. DISCHARGE PAPERWORK GIVEN TO [facility], [facility] INSTRUCTED TO HAND PAPERWORK TO [facility] STAFF.
[2022-10-18] MEDS ORDERED: TOBRAMYCIN 140 MG in DEXTROSE 5% 100 ML IV SCH (09:00)
== END 2022-10-17 18:15 | DRG 720 ==
LOC: MED 06:25 → MIC 10:12 → MTU 10:12 → MIC 15:31 → MTU 10-12 09:40
PROVIDERS: ADMIT Hospitalist; ATTEND Hospitalist
PROC: 5A1955Z Respiratory Ventilation, Greater than 96 Consecutive Hours (ICD-10-PCS; principal; 2022-10-09)
PROC: 30233N1 Transfusion of Nonautologous Red Blood Cells into Peripheral Vein, Percutaneous Approach (ICD-10-PCS; 2022-10-09)
DX: A41.9 Sepsis, unspecified organism (principal); J96.21 Acute and chronic respiratory failure with hypoxia; N17.0 Acute kidney failure with tubular necrosis; J18.9 Pneumonia, unspecified organism; R65.21 Severe sepsis with septic shock; E87.0 Hyperosmolality and hypernatremia; G93.1 Anoxic brain damage, not elsewhere classified; D62 Acute posthemorrhagic anemia; E11.9 Type 2 diabetes mellitus without complications; G40.909 Epilepsy, unspecified, not intractable, without status epilepticus; N39.0 Urinary tract infection, site not specified; B96.89 Other specified bacterial agents as the cause of diseases classified elsewhere; I10 Essential (primary) hypertension; R13.10 Dysphagia, unspecified; E87.6 Hypokalemia; Z20.822 Contact with and (suspected) exposure to COVID-19
CPT/HCPCS: 36415; 36430; 36600; 71045; 76770; 80053; 80200; 80202; 81001; 82803; 82948; 83605; 83735; 84300; 84484; 85025; 86886; 86900; 86901; 86920; 87040; 87070; 87081; 87086; 87205; 89220; 93005; 94002; 94003; 94640; 96361; 96365; 96367; 99291; C9113; J0696; J1815; J2020; J2060; J2270; J2543; J3260; J3370; J3480; J3490; J7060; P9016; P9046; Q0092

== ENCOUNTER 2022-10-27 23:40 | Emergency (ER) | payer OTHER ==
[~2022-10-27] VITALS: Ht 177.8 cm; Wt 59.0 kg
[~2022-10-27 23:40] MED LIST changes: +CRAN250C GT; +LINE600I6 IV; +NUTR30LI3 GT; -PIPE100S2 IV; +[UNRECOGNIZED DRUG - CODE] IV
--- NOTE | 2022-10-27 23:44 | NUR ---
Pt to bed 11
--- NOTE | 2022-10-27 23:44 | NUR ---
PT [facility] ER BED 11
--- NOTE | 2022-10-27 23:54 | NUR ---
PT PLACED ON SETTING PER FACILITY. A/C 450, RR 16, PEEP 5, FIO2 30%. PORTEX 8 PATENT AND SECURE.
--- NOTE | 2022-10-28 00:02 | NUR ---
Patient resting in bed, awake, chest rise and fall symmetrical, no s/s of pain or s/s of distress, on monitor and mechanical vent via trach.
[2022-10-28 00:05] VITALS: BP 98/46
--- NOTE | 2022-10-28 00:08 | NUR ---
ER physician asessing patient.
[2022-10-28 00:25] LABS: RED BLOOD CELL COUNT(AUTO) 1.82 MIL/uL (4.20-6.10)
[2022-10-28 00:29] LABS: MEAN CORPUSCULAR HEMOGLOBIN 30 pg (27-31); MEAN CORPUSCULAR HGB CONC 33 g/dL (33-37); MEAN CORPUSCULAR VOLUME 88.9 fL (80-94); PLATELET COUNT (AUTO) 181 K/uL (140-450); RED CELL DISTRIBUTION WIDTH 15.9 % (11.6-13.7); WHITE BLOOD COUNT (AUTO) 8.9 K/uL (4.8-10.8)
[2022-10-28 00:42] LABS: HEMATOCRIT 16.2 % (36-52); NEUTROPHILS % (AUTO) 7.5 % (42.2-75.2)
[2022-10-28 00:43] LABS: BASOPHILS % (AUTO) 0.4 % (0.0-2.0); EOSINOPHILS % (AUTO) 1.8 % (0.0-4.0); LYMPHOCYTES % (AUTO) 6.3 % (20.5-51.1); MONOCYTES % (AUTO) 6.1 % (1.7-9.3)
[2022-10-28 00:44] LABS: HEMOGLOBIN 5.5 g/dL (12.0-18.0); LYMPHOCYTES # (AUTO) 0.5 K/uL (2.0-11.5); NEUTROPHILS # (AUTO) 7.5 K/uL (1.8-7.7)
[2022-10-28 00:45] LABS: EOSINOPHILS # (AUTO) 0.2 K/uL (0-0.4); MONOCYTES # (AUTO) 0.5 K/uL (0.8-1.0)
[2022-10-28 00:52] LABS: ANION GAP 8.2 (8-16); CREATININE 1.9 mg/dL (0.6-1.3); POTASSIUM 4.2 mmol/L (3.5-5.1)
--- NOTE | 2022-10-28 00:56 | NUR ---
Old Petersen Catheter removed, new Petersen Catheter changed via sterile procedure. PAtient tolerated procedure well.
--- NOTE | 2022-10-28 00:58 | NUR ---
Patient resting in bed, awake, chest rise and fall symmetrical, no s/s of pain or s/s of distress, on monitor and mechanical vent via trach.
--- NOTE | 2022-10-28 00:59 | NUR ---
Patient had bowel movement, soft/brown/medium ammount, no signs of melena. Addendum: 10/28/22 at 0059 by [id number] Patient had bowel movement, soft/brown/medium ammount, no signs of melena, Dr. Britt verbally informed, Dr. Britt verbalized understanding, no new orders.
[2022-10-28 01:45] LABS: PROTHROMBIN TIME 10.8 secs (10.8-13.4)
--- NOTE | 2022-10-28 02:37 | NUR ---
verbal consent obtained through the phone by augustina Mcneal for blood transfusion consent. Verified with Crow MONSON for double witness of consent through the phone
--- NOTE | 2022-10-28 02:55 | NUR ---
Patient resting in bed, awake, chest rise and fall symmetrical, no s/s of pain or s/s of distress, on monitor and mechanical vent via trach.
--- NOTE | 2022-10-28 03:25 | NUR ---
RBC transfusion started. Patient tolerating transfusion, no adverse reaction.
--- NOTE | 2022-10-28 03:40 | NUR ---
RBC transfusion started. Patient tolerating transfusion, no adverse reaction. Addendum: 10/28/22 at 0534 by [id number] Patient tolerating transfusion, no adverse reaction.
[2022-10-28 03:55] VITALS: BP 81/47
--- NOTE | 2022-10-28 04:25 | NUR ---
Patient resting in bed, awake, chest rise and fall symmetrical, no s/s of pain or s/s of distress, on monitor and mechanical vent via trach.
--- NOTE | 2022-10-28 05:32 | NUR ---
First unit of RBC transfusion completed. Patient tolerated transfusion, no adverse reaction.
--- NOTE | 2022-10-28 05:49 | NUR ---
Second unit of RBC transfusion started. Patient tolerating transfusion, no adverse reaction.
--- NOTE | 2022-10-28 06:04 | NUR ---
Patient tolerating transfusion, no adverse reaction.
--- NOTE | 2022-10-28 07:00 | NUR ---
Second unit of RBC completed. Patient tolerated transfusion, no adverse reaction.
--- NOTE | 2022-10-28 07:01 | NUR ---
Report given to [facility] Nurse Therese RN, via telephone number [phone]. [facility] Nurse Therese RN verbalized understanding, no further questions.
--- NOTE | 2022-10-28 07:16 | NUR ---
Change of shift report given to AM shift nurse Jessi RN. AM shift nurse Jessi RN verbalized understanding of report, no further questions,
[2022-10-28 07:46] VITALS: BP 123/65
--- NOTE | 2022-10-28 07:46 | NUR ---
Patient discharged with v/s stable. Written and verbal after care instructions given and explained. Patient verbalized understanding. Ambulance Transport with to [facility]. All questions addressed prior to discharge. Advised to follow up with PMD. critical transport team at bedside for transport. [facility] with EMS Maureen
== END 2022-10-28 07:46 | disposition home or self-care (01) ==
LOC: MED 23:40
DX: D64.9 Anemia, unspecified (principal); J96.10 Chronic respiratory failure, unspecified whether with hypoxia or hypercapnia; I10 Essential (primary) hypertension; E11.9 Type 2 diabetes mellitus without complications; Z86.73 Personal history of transient ischemic attack (TIA), and cerebral infarction without residual deficits; Z79.4 Long term (current) use of insulin; Z79.899 Other long term (current) drug therapy; Z98.890 Other specified postprocedural states
CPT/HCPCS: 36415; 36430; 80048; 85025; 85610; 85730; 86886; 86900; 86901; 86920; 94760; 99285; P9016

== ENCOUNTER 2022-11-24 12:40 | Inpatient (IN) | payer OTHER ==
[~2022-11-24] VITALS: Ht 167.6 cm; Wt 59.0 kg
[2022-11-24 12:40] VITALS: BP 111/71
--- NOTE | 2022-11-24 12:40 | NUR ---
PATIENT IS IN ROOM 10, IVS PLACED IN THE LEFT ARM, PATIENT PLACED ON VENTILATOR, VITAL SIGNS ARE PERFORMED, AND WOUND PICS DONE DR. PEDRO IS AWARE.
--- NOTE | 2022-11-24 12:40 | NUR ---
PT BROUGHT IN VIA AMBU BAG BY AMBULANCE. PTS PREVIOUS VENT SETTINGS WERE PROVIDED BY [employer] VT450/RR16/+5/35%. PLACED PATIENT ON CARESCAPE VENTILATOR. ER DOCTOR NOTIFIED OF SETTINGS NO CHANGES ORDERED. PT AIRWAY IS PATENT AND SECURED BY TRACH TIE. AMBU BAG AT BEDSIDE, ALARMS ARE ON AND AUDIBLE TO ENVIRONMENT, VENT IS PLUGGED IN TO RED OUTLET AND WHEELS ARE LOCKED. ADEQUATE CHEST RISE AND FALL NOTED. BILAT BREATH SOUNDS AUSCULTATED @ THIS TIME. NO COMPLICATIONS. NO DISTRESS NOTED . SPUTUM INDUCTION DONE, NO ABG WAS ORDERED @ THIS TIME. WILL CONTINUE TO MONITOR PATIENT
[2022-11-24 13:22] LABS: BASOPHILS % (AUTO) 0.1 % (0.0-2.0); EOSINOPHILS # (AUTO) 0.1 K/uL (0-0.4); EOSINOPHILS % (AUTO) 1.2 % (0.0-4.0); HEMATOCRIT 20.6 % (36-52); LYMPHOCYTES # (AUTO) 0.4 K/uL (2.0-11.5); LYMPHOCYTES % (AUTO) 3.3 % (20.5-51.1); MEAN CORPUSCULAR HEMOGLOBIN 30 pg (27-31); MEAN CORPUSCULAR HGB CONC 33 g/dL (33-37); MEAN CORPUSCULAR VOLUME 90.9 fL (80-94); MONOCYTES # (AUTO) 0.8 K/uL (0.8-1.0); MONOCYTES % (AUTO) 6.7 % (1.7-9.3); NEUTROPHILS # (AUTO) 11.1 K/uL (1.8-7.7); NEUTROPHILS % (AUTO) 88.7 % (42.2-75.2); PLATELET COUNT (AUTO) 292 K/uL (140-450); RED BLOOD CELL COUNT(AUTO) 2.27 MIL/uL (4.20-6.10); WHITE BLOOD COUNT (AUTO) 12.5 K/uL (4.8-10.8)
[2022-11-24 13:26] LABS: HEMOGLOBIN 6.8 g/dL (12.0-18.0)
[2022-11-24 13:32] LABS: CARBON DIOXIDE 32.5 mmol/L (21-32); CREATININE 1.4 mg/dL (0.6-1.3); POTASSIUM 4.5 mmol/L (3.5-5.1); TOTAL BILIRUBIN 0.2 mg/dL (0.0-1.0)
[2022-11-24] MEDS ORDERED: NACL 0.9% 1,000 ML IV ONE (14:15)
[2022-11-24] MEDS ORDERED: NACL 0.9% 1,000 ML IV SCH (14:45)
[2022-11-24] MEDS ORDERED: MORPHINE SULFATE 4 MG/ML SYR IVP PRN (14:45)
[2022-11-24] MEDS ORDERED: ACETAMINOPHEN 325 MG TAB PO PRN (14:45)
[2022-11-24] MEDS ORDERED: cefTRIAXone 1,000 MG VIAL ONE (15:44)
--- NOTE | 2022-11-24 16:01 | NUR ---
DR. LEZAMA AT BEDSIDE, PERFORMED RECTAL EXAM AND GT FLUSHES, NO BLOOD NOTED DURING THE EXAMINATION AND STATES THAT PATIENT IS BEING CLEARED FROM GI AND CAN POSSIBLY BE DISCHARGE, MD WILL SPEAK TO PRIMARY MD (DR. RODRIGUEZ) FOR FURTHER DETAILS, MD SPOKE TO ED MD (DR. FREIRE), NO ADDITIONAL COMPLICATIONS NOTED AT THE MOMENT AND WILL REINFORCE IF NEEDED THROUGHOUT THE SHIFT.
--- NOTE | 2022-11-24 16:45 | NUR ---
PT TRANSPORT FROM ER TO ROOM 108B. NO COMPLICATIONS AT THIS TIME. PT AIRWAY IS PATENT AND SECURED BY TRACH TIE. AMBU BAG AT BEDSIDE, ALARMS ARE ON AND AUDIBLE TO ENVIRONMENT, VENT IS PLUGGED IN TO RED OUTLET AND WHEELS ARE LOCKED. ADEQUATE CHEST RISE AND FALL NOTED. BILAT BREATH SOUNDS AUSCULTATED. WILL CONT TO ROUND IN ON PATIENT.
--- NOTE | 2022-11-24 16:46 | NUR ---
TRANSFERRED PATIENT TO ROOM 108B, WITH EMT, PRIMARY RN, 2X RTS AND ACLS MEDS. NO COMPLICATIONS NOTED DURING THE TRANSFER OVER, PROVIDED BEDSIDE REPORT TO ERMIAS JONES AND RELAYED INFORMATION OF PATIENT.
[2022-11-24 17:00] VITALS: BP 112/60
--- NOTE | 2022-11-24 17:00 | NUR ---
RECEIVED REPORT FROM ER NURSE FOR CONTINUITY OF CARE. PT STABLE UPON TRANSPORT AND TRANSPORTED WITH RT AND ER STAFF. PT WAS PLACED ON VENT WITH FIO2 AT 35, PEEP 5, RESPIRATIONS 16 AND VT AT 450. PT IS APHASIC, BEDBOUND AND HAS A STAGE 2 WOUND ON COCCYX. PT HAS AND IV IN HIS L FOREARM THAT IS 20G INFUSING NS @ 80MLS/HR AND A R FOREARM 24G THAT IS PATENT AND SALINE LOCKED. ALL SAFETY MEASURES IN PLACE INCLUDING BED IN LOW POSITION AND SUCTION CONNECTED. CONTINUATION OF MONITORING AT THIS TIME.
--- NOTE | 2022-11-24 19:35 | NUR ---
ENDORSED PT TO DIRECTOR FOUNDATION NURSE FOR CONTINUITY CARE. PT STABLE AT THIS TIME.
--- NOTE | 2022-11-24 19:40 | NUR ---
RECEIVED PT IN BED WITH EYES CLOSED, NO S/SX OF PAIN NOR DISCOMFORT. TRACH TO VENT WITH SETTINGS ORDERED, NO S/SX OF ACUTE RESPIRATORY DISTRESS, SATURATION OF 100%. SKIN WARM AND DRY TO TOUCH. IVF INFUSING WELL ORDERED. PT IS FOR BLOOD TRANSFUSION ORDERED. TELEPHONE CONSENT GIVEN BY DAUGHTER YUNI FOR TRANSFUSION, WITNESSED BY KAREN MONSON. SKIN WARM AND DRY TO TOUCH. G-TUBE CLAMPED AT THIS TIME. SAFETY PRECAUTIONS IN PLACE, CALL LIGHT WITHIN REACH.
[2022-11-24 20:00] VITALS: BP 135/67
[2022-11-24] MEDS: DEXT 5% /NACL 0.9% 1,000 ML IV SCH (20:14)
--- NOTE | 2022-11-24 21:05 | NUR ---
2049- BLOOD TRANSFUSION STARTED ORDERED, VITAL SIGNS PRIOR TO [id number]/67 RR-18, HR-97, TEMP=-97.3, NO S/SX OF PAIN NOR DISCOMFORT. BEDSIDE CHECK OF BLOOD WITH CALLIE. 2104-15 MINS AFTER START OF BLOOD TRANSFUSION, NO ADVERSE REACTION NOTED. VITAL SIGNS FOLLOWS; BP-134/69, RR-18 HR-98 TEMP-97.2, NO S/SX OF PAIN NOR DISCOMFORT.
--- NOTE | 2022-11-24 23:45 | NUR ---
BLOOD TRANSFUSION DONE. NO ADVERSE REACTION NOTED. VITAL SIGNS FOLLOWS: BP-149/75 RR-18 HR-100 TEMP-97.5, NO S/SX OF PAIN NOR DISCOMFORT.
[2022-11-25] VITALS: BP 149/75
[2022-11-25 01:45] LABS: HEMATOCRIT 26.6 % (36-52); HEMOGLOBIN 8.6 g/dL (12.0-18.0)
[2022-11-25 04:00] VITALS: BP 110/56
--- NOTE | 2022-11-25 05:30 | NUR ---
PATIENT HAD A BOWEL MOVEMENT, AM CARE RENDERED. DRESSING CHANGED IN THE SACRAL AREA. G-TUBE SITE CLEANED AND CHANGED DRESSING, ORAL CARE RENDERED. MADE COMFORTABLE IN BED, HEAD OF THE BED ELEVATED.
--- NOTE | 2022-11-25 06:18 | NUR ---
PATIENT IS ASLEEP. ALL NEEDS ATTENDED TO. NO DISTRESS NOTED. SAFETY PRECAUTIONS MAINTAINED DURING THE SHIFT. FREQUENT ROUNDING DONE. CALL LIGHT REMAINS WITHIN REACH.
--- NOTE | 2022-11-25 07:05 | NUR ---
RECEIVED REPORT FROM RED LEADER NURSE FOR CONTINUITY OF CARE. PT STABLE AT THIS TIME RESTING IN BED.
[2022-11-25 07:15] LABS: BASOPHILS % (AUTO) 0.3 % (0.0-2.0); EOSINOPHILS # (AUTO) 0.1 K/uL (0-0.4); EOSINOPHILS % (AUTO) 1.8 % (0.0-4.0); HEMATOCRIT 21.9 % (36-52); HEMOGLOBIN 7.3 g/dL (12.0-18.0); LYMPHOCYTES # (AUTO) 0.5 K/uL (2.0-11.5); LYMPHOCYTES % (AUTO) 6.2 % (20.5-51.1); MEAN CORPUSCULAR HEMOGLOBIN 30 pg (27-31); MEAN CORPUSCULAR HGB CONC 33 g/dL (33-37); MEAN CORPUSCULAR VOLUME 90.6 fL (80-94); MONOCYTES # (AUTO) 0.7 K/uL (0.8-1.0); MONOCYTES % (AUTO) 9.4 % (1.7-9.3); NEUTROPHILS % (AUTO) 82.3 % (42.2-75.2); PLATELET COUNT (AUTO) 283 K/uL (140-450); RED BLOOD CELL COUNT(AUTO) 2.42 MIL/uL (4.20-6.10); RED CELL DISTRIBUTION WIDTH 17.8 % (11.6-13.7); WHITE BLOOD COUNT (AUTO) 7.3 K/uL (4.8-10.8)
[2022-11-25 07:18] LABS: ANION GAP 11.8 (8-16); CREATININE 1.3 mg/dL (0.6-1.3); POTASSIUM 3.8 mmol/L (3.5-5.1)
[2022-11-25 08:00] VITALS: BP 114/57
--- NOTE | 2022-11-25 09:14 | NUR ---
PATIENT HAS BEEN SCREENED AND CATEGORIZED HIGH NUTRITION RISK. PATIENT WILL BE SEEN WITHIN 1-2 DAYS OF ADMISSION. 11/25/22-11/26/[address]
[2022-11-25] MEDS: DEXT 5% /NACL 0.9% 1,000 ML IV SCH (09:51)
--- NOTE | 2022-11-25 11:15 | NUR ---
RECEIVED ORDER FOR PATIENT TO GO BACK TO [facility]. FAXED ALL PAPERWORK TO [facility]. SPOKE WITH TERRI AT [facility] LOCATED AT [address] [place] [address]. PATIENT WILL BE GOING TO ROOM 2A UNDER DR BRYANT TRANSPORTATION ARRANGED WITH [facility] WITH A 1200 COLLET GLUER TIME. CHARGE NURSE SHIMA AND SISTER COREY AWARE OF THE ABOVE INFORMATION. TRANSPORTATION AUTH #[id number] AND [facility] AUTH #[id number] GIVEN BY AGUSTÍN AT [facility].
[2022-11-25 11:58] VITALS: BP 114/57
[2022-11-25 12:00] VITALS: BP 128/60
== END 2022-11-25 12:20 | DRG 720 ==
LOC: MED 12:40 → INTOOBSV 14:44 → MMU 14:44 → MTU 16:34 → OBSVTOIN 11-25 09:13
PROVIDERS: ADMIT Student in an Organized Health Care Education/Training Program; ATTEND Student in an Organized Health Care Education/Training Program
PROC: 5A1935Z Respiratory Ventilation, Less than 24 Consecutive Hours (ICD-10-PCS; principal; 2022-11-25)
PROC: 30233N1 Transfusion of Nonautologous Red Blood Cells into Peripheral Vein, Percutaneous Approach (ICD-10-PCS; 2022-11-25)
DX: A41.9 Sepsis, unspecified organism (principal); G93.41 Metabolic encephalopathy; J18.9 Pneumonia, unspecified organism; J96.11 Chronic respiratory failure with hypoxia; D62 Acute posthemorrhagic anemia; Z93.0 Tracheostomy status; D63.8 Anemia in other chronic diseases classified elsewhere; I10 Essential (primary) hypertension; E11.9 Type 2 diabetes mellitus without complications; G40.909 Epilepsy, unspecified, not intractable, without status epilepticus; Z20.822 Contact with and (suspected) exposure to COVID-19; Z86.73 Personal history of transient ischemic attack (TIA), and cerebral infarction without residual deficits; Z93.1 Gastrostomy status
CPT/HCPCS: 99285; G0378; 36415; 36430; 71045; 80048; 80053; 83880; 84484; 85018; 85025; 86886; 86900; 86901; 86920; 87070; 87081; 87205; 89220; 93005; 94003; J0696; J7060; P9016; Q0092

== ENCOUNTER 2023-02-02 10:57 | Inpatient (IN) | payer OTHER ==
[~2023-02-02] VITALS: Ht 172.7 cm; Wt 55.3 kg
[2023-02-02] VITALS (10 sets, daily range): BP systolic 84–104; BP diastolic 45–48; PULSE 89–126; RESP 16–22; TEMP 97.4–103; O2SAT 89–100
[~2023-02-02 10:57] MED LIST changes: -LINE600I6 IV; -LOV40I SUBQ; -MULT-2086 PO; -[UNRECOGNIZED DRUG - CODE] IV
[2023-02-02] MEDS ORDERED: NACL 0.9% 2,000 ML IV ONE (11:05)
[2023-02-02] MEDS ORDERED: ACETAMINOPHEN 650 MG SUPP RC ONE ×2 (11:16→11:30)
[2023-02-02] MEDS ORDERED: KETOROLAC 15 MG/ML VIAL ONE (11:43)
[2023-02-02] MEDS ORDERED: KETOROLAC 15 MG/ML VIAL IVP ONE (11:45)
[2023-02-02 11:53] LABS: APPEARANCE,URINE CLOUDY (CLEAR); BILIRUBIN,URINE NEGATIVE (NEGATIVE); BLOOD, URINE 2+ (NEGATIVE); COLOR,URINE YELLOW (YELLOW); LEUKOCYTE ESTERASE ,URINE 3+ (NEGATIVE); NITRITE, URINE NEGATIVE (NEGATIVE); PH,URINE 6.5 (5.0-9.0); PROTEIN,URINE 3+ (NEGATIVE); UGLUCOSE NEGATIVE (NEGATIVE); UROBILINOGEN,URINE 0.2 EU/dL (0.2 - 1)
[2023-02-02 11:55] LABS: BASOPHILS # (AUTO) 0.2 K/uL (0.00-0.22); BASOPHILS % (AUTO) 1.4 % (0.0-2.0); EOSINOPHILS # (AUTO) 0.1 K/uL (0-0.4); EOSINOPHILS % (AUTO) 0.7 % (0.0-4.0); HEMOGLOBIN 8.7 g/dL (12.0-18.0); LYMPHOCYTES # (AUTO) 0.8 K/uL (2.0-11.5); LYMPHOCYTES % (AUTO) 4.9 % (20.5-51.1); MEAN CORPUSCULAR HEMOGLOBIN 29 pg (27-31); MEAN CORPUSCULAR HGB CONC 32 g/dL (33-37); MEAN CORPUSCULAR VOLUME 88.9 fL (80-94); MONOCYTES # (AUTO) 0.5 K/uL (0.8-1.0); MONOCYTES % (AUTO) 2.9 % (1.7-9.3); NEUTROPHILS # (AUTO) 14.2 K/uL (1.8-7.7); NEUTROPHILS % (AUTO) 90.1 % (42.2-75.2); PLATELET COUNT (AUTO) 307 K/uL (140-450); RED BLOOD CELL COUNT(AUTO) 3.04 MIL/uL (4.20-6.10); WHITE BLOOD COUNT (AUTO) 15.8 K/uL (4.8-10.8)
[2023-02-02 12:07] LABS: BACTERIA,URINE 3+ /HPF (None Seen); RBC,URINE 0-5 /HPF (0-5); SQUAMOUS EPITHELIAL CELL,UR 0-3 (FEW) /LPF (0-3 (FEW)); WBC,URINE 80-100 /HPF (0-5)
[2023-02-02] MEDS ORDERED: PIPERACILLIN/TAZOBACTAM 3.375 GM in DEXTROSE 5% 50 ML IV ONE (12:20)
[2023-02-02] MEDS ORDERED: VANCOMYCIN 1,000 MG in DEXTROSE 5% 250 ML IV ONE (12:20)
[2023-02-02 12:41] LABS: LACTIC ACID 2.3 mmol/L (0.4-2.0); LIPASE 38 U/L (73-393); MAGNESIUM 1.9 mg/dL (1.8-2.4); PHOSPHORUS 3.4 mg/dL (2.5-4.9)
[2023-02-02] MEDS ORDERED: VANCOMYCIN 1,000 MG VIAL ONE (12:48)
[2023-02-02] MEDS ORDERED: PIPERACILLIN/TAZOBACTAM 3.375 GM VIAL IV ONE (12:48)
[2023-02-02 13:44] LABS: ALBUMIN 1.9 g/dL (3.4-5.0); ANION GAP 9.7 (8-16); CALCIUM 11.5 mg/dL (8.5-10.1); CARBON DIOXIDE 32.9 mmol/L (21-32); CREATININE 1.4 mg/dL (0.6-1.3); POTASSIUM 4.6 mmol/L (3.5-5.1); TOTAL BILIRUBIN 0.2 mg/dL (0.0-1.0); TOTAL PROTEIN, SERUM 7.1 g/dL (6.4-8.2)
[2023-02-02] MEDS ORDERED: MAGNESIUM OXIDE 400 MG TAB PO PRN (15:40)
[2023-02-02] MEDS ORDERED: ONDANSETRON 4 MG/2 ML VIAL IVP PRN (15:40)
[2023-02-02] MEDS ORDERED: MORPHINE SULFATE 4 MG/ML SYR IVP PRN (15:40)
[2023-02-02] MEDS ORDERED: POTASSIUM CHLORIDE 10 MEQ TABER PO PRN (15:40)
[2023-02-02] MEDS ORDERED: VANCOMYCIN PER PHARMACY MC PRN (15:40)
[2023-02-02] MEDS: NACL 0.9% 1,000 ML IV SCH (15:40)
[2023-02-02] MEDS ORDERED: MAG SULF 2000 MG/WATER PREMIX 50 ML IV PRN (15:40)
[2023-02-02] MEDS ORDERED: KCL 20 MEQ IN 100 mL PREMIX 200 ML IV PRN (15:40)
[2023-02-02] MEDS ORDERED: ACETAMINOPHEN 325 MG TAB PO PRN (15:40)
[2023-02-02] MEDS ORDERED: HYDROcodone/APAP 5/325 MG 1 TAB TAB PO PRN (15:40)
[2023-02-02] MEDS: PIPERACILLIN/TAZOBACTAM 3.375 GM in DEXTROSE 5% 50 ML IV SCH ×2 (18:40→23:43)
[2023-02-02] MEDS ORDERED: DEXTROSE 50% 50 ML SYR IVP PRN (22:10)
[2023-02-03] VITALS (17 sets, daily range): BP systolic 114–137; BP diastolic 52–62; PULSE 88–124; RESP 16–24; TEMP 97.8–102.1; O2SAT 94–100
[2023-02-03] MEDS: NACL 0.9% 1,000 ML IV SCH ×3 (04:25→22:52)
[2023-02-03 04:57] LABS: BASOPHILS % (AUTO) 0.3 % (0.0-2.0); EOSINOPHILS # (AUTO) 0.1 K/uL (0-0.4); EOSINOPHILS % (AUTO) 1.2 % (0.0-4.0); HEMATOCRIT 23.9 % (36-52); HEMOGLOBIN 7.8 g/dL (12.0-18.0); LYMPHOCYTES # (AUTO) 0.5 K/uL (2.0-11.5); MEAN CORPUSCULAR HEMOGLOBIN 29 pg (27-31); MEAN CORPUSCULAR HGB CONC 33 g/dL (33-37); MEAN CORPUSCULAR VOLUME 89.8 fL (80-94); MONOCYTES # (AUTO) 0.5 K/uL (0.8-1.0); MONOCYTES % (AUTO) 4.9 % (1.7-9.3); NEUTROPHILS # (AUTO) 9.4 K/uL (1.8-7.7); NEUTROPHILS % (AUTO) 88.6 % (42.2-75.2); PLATELET COUNT (AUTO) 243 K/uL (140-450); RED BLOOD CELL COUNT(AUTO) 2.66 MIL/uL (4.20-6.10); RED CELL DISTRIBUTION WIDTH 16.8 % (11.6-13.7); WHITE BLOOD COUNT (AUTO) 10.6 K/uL (4.8-10.8)
[2023-02-03 05:19] LABS: ALBUMIN 1.6 g/dL (3.4-5.0); ANION GAP 8.7 (8-16); CALCIUM 10.5 mg/dL (8.5-10.1); CARBON DIOXIDE 31.1 mmol/L (21-32); CREATININE 1.5 mg/dL (0.6-1.3); POTASSIUM 4.8 mmol/L (3.5-5.1); TOTAL BILIRUBIN 0.3 mg/dL (0.0-1.0); TOTAL PROTEIN, SERUM 6.6 g/dL (6.4-8.2)
[2023-02-03] MEDS: PIPERACILLIN/TAZOBACTAM 3.375 GM in DEXTROSE 5% 50 ML IV SCH ×4 (05:37→23:29)
[2023-02-03] MEDS: BLOOD GLUCOSE MONITORING 1 DEV DEV FS SCH ×4 (06:35→20:38)
[2023-02-03] MEDS ORDERED: ALBUTEROL SULFATE/IPRATROPIU 3 ML SOL IH ONE (07:39)
[2023-02-03] MEDS ORDERED: VANCOMYCIN 1,000 MG in DEXTROSE 5% 250 ML IV SCH (10:00)
[2023-02-03] MEDS: ALBUTEROL SULFATE/IPRATROPIU 3 ML SOL IH SCH ×2 (12:39→20:21)
[2023-02-03] MEDS: INSULIN LISPRO SLIDING SCALE 100 UNITS/ML VIAL SUBQ PRN (17:00)
[2023-02-04] VITALS (15 sets, daily range): BP systolic 130–148; BP diastolic 61–68; PULSE 83–101; RESP 16–28; TEMP 98.1–98.9; O2SAT 96–98
[2023-02-04] MEDS: ALBUTEROL SULFATE/IPRATROPIU 3 ML SOL IH SCH ×4 (01:08→19:10)
[2023-02-04] MEDS: NACL 0.9% 1,000 ML IV SCH ×2 (05:10→17:05)
[2023-02-04 05:13] LABS: BASOPHILS # (AUTO) 0.1 K/uL (0.00-0.22); BASOPHILS % (AUTO) 1.1 % (0.0-2.0); EOSINOPHILS # (AUTO) 0.3 K/uL (0-0.4); EOSINOPHILS % (AUTO) 2.6 % (0.0-4.0); HEMATOCRIT 23.7 % (36-52); HEMOGLOBIN 7.7 g/dL (12.0-18.0); LYMPHOCYTES # (AUTO) 0.5 K/uL (2.0-11.5); LYMPHOCYTES % (AUTO) 4.8 % (20.5-51.1); MEAN CORPUSCULAR HEMOGLOBIN 29 pg (27-31); MEAN CORPUSCULAR HGB CONC 33 g/dL (33-37); MEAN CORPUSCULAR VOLUME 88.7 fL (80-94); MONOCYTES # (AUTO) 0.8 K/uL (0.8-1.0); MONOCYTES % (AUTO) 6.8 % (1.7-9.3); NEUTROPHILS # (AUTO) 9.5 K/uL (1.8-7.7); NEUTROPHILS % (AUTO) 84.7 % (42.2-75.2); PLATELET COUNT (AUTO) 305 K/uL (140-450); RED BLOOD CELL COUNT(AUTO) 2.67 MIL/uL (4.20-6.10); RED CELL DISTRIBUTION WIDTH 16.9 % (11.6-13.7); WHITE BLOOD COUNT (AUTO) 11.2 K/uL (4.8-10.8)
[2023-02-04 05:22] LABS: ALBUMIN 1.5 g/dL (3.4-5.0); ANION GAP 12.5 (8-16); CALCIUM 10.4 mg/dL (8.5-10.1); CARBON DIOXIDE 27.8 mmol/L (21-32); CREATININE 1.8 mg/dL (0.6-1.3); MAGNESIUM 2.1 mg/dL (1.8-2.4); POTASSIUM 4.3 mmol/L (3.5-5.1); TOTAL BILIRUBIN 0.3 mg/dL (0.0-1.0); TOTAL PROTEIN, SERUM 6.6 g/dL (6.4-8.2)
[2023-02-04] MEDS: PIPERACILLIN/TAZOBACTAM 3.375 GM in DEXTROSE 5% 50 ML IV SCH ×4 (05:37→23:42)
[2023-02-04] MEDS: BLOOD GLUCOSE MONITORING 1 DEV DEV FS SCH ×4 (06:33→20:16)
[2023-02-04] MEDS: INSULIN LISPRO SLIDING SCALE 100 UNITS/ML VIAL SUBQ PRN ×3 (06:40→20:18)
[2023-02-04] MEDS ORDERED: Z-GUARD PASTE TP PRN (13:30)
[2023-02-04] MEDS ORDERED: FOAM DRESSING TP PRN (13:30)
[2023-02-04] MEDS ORDERED: THERAHONEY GEL 42.5 GM TP PRN (13:30)
[2023-02-04] MEDS: Z-GUARD PASTE TP SCH (15:00)
[2023-02-04] MEDS: THERAHONEY GEL 42.5 GM TP SCH (15:00)
[2023-02-05] VITALS (13 sets, daily range): BP systolic 118–135; BP diastolic 59–66; PULSE 79–90; RESP 16–26; TEMP 97–99; O2SAT 96–100
[2023-02-05] MEDS: Z-GUARD PASTE TP SCH ×2 (01:47→13:57)
[2023-02-05] MEDS: ALBUTEROL SULFATE/IPRATROPIU 3 ML SOL IH SCH ×4 (02:02→19:36)
[2023-02-05 04:45] LABS: BASOPHILS % (AUTO) 0.3 % (0.0-2.0); EOSINOPHILS # (AUTO) 0.1 K/uL (0-0.4); EOSINOPHILS % (AUTO) 1.3 % (0.0-4.0); HEMATOCRIT 23.4 % (36-52); HEMOGLOBIN 7.5 g/dL (12.0-18.0); LYMPHOCYTES # (AUTO) 0.5 K/uL (2.0-11.5); MEAN CORPUSCULAR HEMOGLOBIN 29 pg (27-31); MEAN CORPUSCULAR HGB CONC 32 g/dL (33-37); MEAN CORPUSCULAR VOLUME 90.2 fL (80-94); MONOCYTES # (AUTO) 0.7 K/uL (0.8-1.0); MONOCYTES % (AUTO) 6.3 % (1.7-9.3); NEUTROPHILS # (AUTO) 9.1 K/uL (1.8-7.7); NEUTROPHILS % (AUTO) 87.1 % (42.2-75.2); PLATELET COUNT (AUTO) 313 K/uL (140-450); RED CELL DISTRIBUTION WIDTH 16.9 % (11.6-13.7); WHITE BLOOD COUNT (AUTO) 10.5 K/uL (4.8-10.8)
[2023-02-05 05:20] LABS: ALBUMIN 1.4 g/dL (3.4-5.0); ANION GAP 12.1 (8-16); CALCIUM 10.5 mg/dL (8.5-10.1); CARBON DIOXIDE 27.5 mmol/L (21-32); CREATININE 1.7 mg/dL (0.6-1.3); MAGNESIUM 2.3 mg/dL (1.8-2.4); POTASSIUM 3.6 mmol/L (3.5-5.1); TOTAL BILIRUBIN 0.3 mg/dL (0.0-1.0); TOTAL PROTEIN, SERUM 6.2 g/dL (6.4-8.2)
[2023-02-05] MEDS: PIPERACILLIN/TAZOBACTAM 3.375 GM in DEXTROSE 5% 50 ML IV SCH ×3 (05:28→18:04)
[2023-02-05] MEDS: NACL 0.9% 1,000 ML IV SCH ×2 (06:10→08:48)
[2023-02-05] MEDS: BLOOD GLUCOSE MONITORING 1 DEV DEV FS SCH ×3 (06:41→16:47)
[2023-02-05] MEDS: INSULIN LISPRO SLIDING SCALE 100 UNITS/ML VIAL SUBQ PRN ×3 (06:45→16:52)
[2023-02-05] MEDS ORDERED: VANCOMYCIN 1,000 MG in NACL 0.9% 250 ML IV SCH (09:00)
[2023-02-05] MEDS: THERAHONEY GEL 42.5 GM TP SCH (13:56)
[2023-02-05] MEDS ORDERED: ZOS3.375PM IV (16:16)
[2023-02-07] MEDS ORDERED: FOAM DRESSING TP SCH (09:00)
== END 2023-02-05 20:00 | DRG 720 ==
LOC: MED 10:57 → MTU 15:40
PROVIDERS: ADMIT Hospitalist; ATTEND Hospitalist
PROC: 5A1945Z Respiratory Ventilation, 24-96 Consecutive Hours (ICD-10-PCS; principal; 2023-02-02)
DX: A41.9 Sepsis, unspecified organism (principal); N17.0 Acute kidney failure with tubular necrosis; J18.8 Other pneumonia, unspecified organism; J96.11 Chronic respiratory failure with hypoxia; Z99.11 Dependence on respirator [ventilator] status; R65.20 Severe sepsis without septic shock; N39.0 Urinary tract infection, site not specified; I10 Essential (primary) hypertension; D64.9 Anemia, unspecified; R13.10 Dysphagia, unspecified; Z20.822 Contact with and (suspected) exposure to COVID-19; B96.20 Unspecified Escherichia coli [E. coli] as the cause of diseases classified elsewhere
CPT/HCPCS: 36415; 71045; 80053; 80202; 81001; 82948; 83605; 83690; 83735; 83880; 84100; 84443; 84484; 85025; 87040; 87070; 87081; 87086; 87205; 89220; 94003; 94640; 96361; 96374; 96375; 99291; J1644; J1815; J1885; J2543; J3370; J7030; J7060; Q0092

== ENCOUNTER 2023-04-16 13:58 | Inpatient (IN) | payer OTHER ==
[2023-04-16] VITALS (10 sets, daily range): BP systolic 120–125; BP diastolic 56–76; PULSE 81–88; RESP 17–26; TEMP 96.2–98.5; O2SAT 99–100
[~2023-04-16] VITALS: Ht 175.3 cm; Wt 85.3 kg
[~2023-04-16 13:58] MED LIST changes: +ZOS3.375PM IV
[2023-04-16] MEDS ORDERED: NACL 0.9% 1,000 ML IV ONE (14:00)
[2023-04-16 14:43] LABS: EOSINOPHILS % (AUTO) 0.4 % (0.0-4.0); HEMATOCRIT 22.1 % (36-52); HEMOGLOBIN 7.3 g/dL (12.0-18.0); LYMPHOCYTES # (AUTO) 0.4 K/uL (2.0-11.5); LYMPHOCYTES % (AUTO) 4.8 % (20.5-51.1); MEAN CORPUSCULAR HEMOGLOBIN 29 pg (27-31); MEAN CORPUSCULAR HGB CONC 33 g/dL (33-37); MEAN CORPUSCULAR VOLUME 88.8 fL (80-94); MONOCYTES # (AUTO) 0.8 K/uL (0.8-1.0); MONOCYTES % (AUTO) 8.6 % (1.7-9.3); NEUTROPHILS # (AUTO) 7.6 K/uL (1.8-7.7); NEUTROPHILS % (AUTO) 86.2 % (42.2-75.2); PLATELET COUNT (AUTO) 177 K/uL (140-450); RED BLOOD CELL COUNT(AUTO) 2.48 MIL/uL (4.20-6.10); RED CELL DISTRIBUTION WIDTH 17.7 % (11.6-13.7); WHITE BLOOD COUNT (AUTO) 8.8 K/uL (4.8-10.8)
[2023-04-16 14:56] LABS: ALBUMIN 1.9 g/dL (3.4-5.0); ANION GAP 3.2 (8-16); CARBON DIOXIDE 35.7 mmol/L (21-32); CREATININE 1.5 mg/dL (0.6-1.3); POTASSIUM 3.9 mmol/L (3.5-5.1); TOTAL BILIRUBIN 0.2 mg/dL (0.0-1.0); TOTAL PROTEIN, SERUM 7.1 g/dL (6.4-8.2)
[2023-04-16] MEDS ORDERED: MORPHINE SULFATE 2 MG/ML SYR IVP PRN (15:55)
[2023-04-16] MEDS ORDERED: ACETAMINOPHEN 325 MG TAB PO PRN (15:55)
[2023-04-16] MEDS ORDERED: LORazepam 2 MG/ML VIAL IVP PRN (15:55)
[2023-04-16] MEDS ORDERED: ONDANSETRON 4 MG/2 ML VIAL IVP PRN (15:55)
[2023-04-16] MEDS ORDERED: cefTRIAXone 1,000 MG VIAL ONE (16:18)
[2023-04-16 17:39] LABS: ANION GAP 8.6 (8-16); CALCIUM 9.1 mg/dL (8.5-10.1); CARBON DIOXIDE 33.2 mmol/L (21-32); CREATININE 1.3 mg/dL (0.6-1.3); POTASSIUM 3.8 mmol/L (3.5-5.1)
[2023-04-16] MEDS: BLOOD GLUCOSE MONITORING 1 DEV DEV FS SCH (22:47)
[2023-04-16] MEDS: DEXTROSE 50% 50 ML SYR IVP PRN (23:04)
[2023-04-17] VITALS (13 sets, daily range): BP systolic 111–136; BP diastolic 49–70; PULSE 71–93; RESP 17–24; TEMP 96.9–98.3; O2SAT 96–100
[2023-04-17 05:18] LABS: BASOPHILS % (AUTO) 0.1 % (0.0-2.0); EOSINOPHILS % (AUTO) 0.1 % (0.0-4.0); HEMATOCRIT 24.6 % (36-52); LYMPHOCYTES # (AUTO) 0.2 K/uL (2.0-11.5); LYMPHOCYTES % (AUTO) 2.5 % (20.5-51.1); MEAN CORPUSCULAR HEMOGLOBIN 29 pg (27-31); MEAN CORPUSCULAR HGB CONC 33 g/dL (33-37); MONOCYTES # (AUTO) 0.6 K/uL (0.8-1.0); MONOCYTES % (AUTO) 6.2 % (1.7-9.3); NEUTROPHILS # (AUTO) 8.4 K/uL (1.8-7.7); NEUTROPHILS % (AUTO) 91.1 % (42.2-75.2); PLATELET COUNT (AUTO) 195 K/uL (140-450); RED BLOOD CELL COUNT(AUTO) 2.77 MIL/uL (4.20-6.10); RED CELL DISTRIBUTION WIDTH 17.2 % (11.6-13.7); WHITE BLOOD COUNT (AUTO) 9.3 K/uL (4.8-10.8)
[2023-04-17 05:57] LABS: ALBUMIN 1.9 g/dL (3.4-5.0); ANION GAP 9.9 (8-16); CALCIUM 9.3 mg/dL (8.5-10.1); CARBON DIOXIDE 33.8 mmol/L (21-32); CREATININE 1.4 mg/dL (0.6-1.3); MAGNESIUM 3.4 mg/dL (1.8-2.4); POTASSIUM 3.7 mmol/L (3.5-5.1); TOTAL BILIRUBIN 0.2 mg/dL (0.0-1.0); TOTAL PROTEIN, SERUM 7.3 g/dL (6.4-8.2)
[2023-04-17] MEDS: BLOOD GLUCOSE MONITORING 1 DEV DEV FS SCH ×4 (07:10→20:25)
[2023-04-17] MEDS: INSULIN LISPRO SLIDING SCALE 100 UNITS/ML VIAL SUBQ PRN (07:11)
[2023-04-17] MEDS: NACL 0.9% 1,000 ML IV SCH (08:15)
[2023-04-17] MEDS: INSULIN LANTUS 100 UNITS/ML 10 ML VIAL SUBQ SCH (10:09)
[2023-04-17] MEDS ORDERED: ALGINATE ROPE MC PRN (11:50)
[2023-04-17] MEDS: ALGINATE ROPE MC SCH (13:00)
[2023-04-17] MEDS: FOAM DRESSING TP SCH (13:00)
[2023-04-17] MEDS: Z-GUARD PASTE TP SCH (14:32)
[2023-04-17] MEDS: DEXTROSE 50% 50 ML SYR IVP PRN (16:46)
[2023-04-17] MEDS ORDERED: SODIUM CHLORIDE 1 GM TAB PO SCH (18:07)
[2023-04-18] VITALS (21 sets, daily range): BP systolic 100–121; BP diastolic 47–61; PULSE 68–111; RESP 18–21; TEMP 97.2–99.9; O2SAT 93–100
[2023-04-18] MEDS: Z-GUARD PASTE TP SCH ×2 (01:04→13:00)
[2023-04-18] MEDS: NACL 0.9% 1,000 ML IV SCH (03:10)
[2023-04-18] MEDS: BLOOD GLUCOSE MONITORING 1 DEV DEV FS SCH ×4 (06:39→21:46)
[2023-04-18] MEDS: DEXTROSE 50% 50 ML SYR IVP PRN ×2 (06:40→17:15)
[2023-04-18] MEDS: ZINC SULF 220 MG CAP PO SCH (08:47)
[2023-04-18] MEDS: ASCORBIC ACID 500 MG/5 ML ORASYR GT SCH (08:48)
[2023-04-18] MEDS: MULTIVITAMIN 1 TAB PO SCH (08:48)
[2023-04-18] MEDS: INSULIN LANTUS 100 UNITS/ML 10 ML VIAL SUBQ SCH ×2 (08:51→09:00)
[2023-04-18 11:32] LABS: ANION GAP 8.4 (8-16); CARBON DIOXIDE 36.1 mmol/L (21-32); CREATININE 1.3 mg/dL (0.6-1.3); POTASSIUM 3.5 mmol/L (3.5-5.1)
[2023-04-18] MEDS: FOAM DRESSING TP SCH (13:00)
[2023-04-18] MEDS: ALGINATE ROPE MC SCH (13:00)
[2023-04-19] VITALS (15 sets, daily range): BP systolic 104–132; BP diastolic 42–60; PULSE 88–102; RESP 18–26; TEMP 98.1–98.9; O2SAT 91–100
[2023-04-19] MEDS: BLOOD GLUCOSE MONITORING 1 DEV DEV FS SCH ×4 (06:14→20:38)
[2023-04-19] MEDS: NACL 0.9% 1,000 ML IV SCH (06:15)
[2023-04-19] MEDS: Z-GUARD PASTE TP SCH ×2 (06:18→13:29)
[2023-04-19 06:37] LABS: BASOPHILS % (AUTO) 0.1 % (0.0-2.0); HEMATOCRIT 23.4 % (36-52); HEMOGLOBIN 7.5 g/dL (12.0-18.0); LYMPHOCYTES # (AUTO) 0.7 K/uL (2.0-11.5); LYMPHOCYTES % (AUTO) 6.7 % (20.5-51.1); MEAN CORPUSCULAR HEMOGLOBIN 29 pg (27-31); MEAN CORPUSCULAR HGB CONC 32 g/dL (33-37); MEAN CORPUSCULAR VOLUME 90.8 fL (80-94); MONOCYTES % (AUTO) 9.7 % (1.7-9.3); NEUTROPHILS # (AUTO) 8.5 K/uL (1.8-7.7); NEUTROPHILS % (AUTO) 83.5 % (42.2-75.2); PLATELET COUNT (AUTO) 185 K/uL (140-450); RED BLOOD CELL COUNT(AUTO) 2.57 MIL/uL (4.20-6.10); RED CELL DISTRIBUTION WIDTH 18.4 % (11.6-13.7); WHITE BLOOD COUNT (AUTO) 10.1 K/uL (4.8-10.8)
[2023-04-19 07:17] LABS: ANION GAP 7.9 (8-16); CARBON DIOXIDE 35.9 mmol/L (21-32); CREATININE 1.4 mg/dL (0.6-1.3); POTASSIUM 3.8 mmol/L (3.5-5.1)
[2023-04-19] MEDS: MULTIVITAMIN 1 TAB PO SCH (09:40)
[2023-04-19] MEDS: ZINC SULF 220 MG CAP PO SCH (09:40)
[2023-04-19] MEDS: ASCORBIC ACID 500 MG/5 ML ORASYR GT SCH (09:41)
[2023-04-19] MEDS: FOAM DRESSING TP SCH (13:29)
[2023-04-19] MEDS: ALGINATE ROPE MC SCH (13:29)
[2023-04-19] MEDS: DEXT 5% /NACL 0.9% 1,000 ML IV SCH (13:36)
[2023-04-19] MEDS: INSULIN LISPRO SLIDING SCALE 100 UNITS/ML VIAL SUBQ PRN ×2 (16:45→20:42)
[2023-04-20] VITALS (16 sets, daily range): BP systolic 102–144; BP diastolic 45–70; PULSE 9–110; RESP 20–23; TEMP 98.1–99.4; O2SAT 90–100
[2023-04-20] MEDS: DEXT 5% /NACL 0.9% 1,000 ML IV SCH ×2 (01:25→06:21)
[2023-04-20] MEDS: Z-GUARD PASTE TP SCH ×2 (01:50→13:00)
[2023-04-20 05:19] LABS: BASOPHILS % (AUTO) 0.1 % (0.0-2.0); EOSINOPHILS % (AUTO) 0.1 % (0.0-4.0); LYMPHOCYTES # (AUTO) 0.6 K/uL (2.0-11.5); LYMPHOCYTES % (AUTO) 6.9 % (20.5-51.1); MEAN CORPUSCULAR HEMOGLOBIN 29 pg (27-31); MEAN CORPUSCULAR HGB CONC 32 g/dL (33-37); MEAN CORPUSCULAR VOLUME 91.9 fL (80-94); MONOCYTES # (AUTO) 0.8 K/uL (0.8-1.0); MONOCYTES % (AUTO) 8.6 % (1.7-9.3); NEUTROPHILS # (AUTO) 7.4 K/uL (1.8-7.7); NEUTROPHILS % (AUTO) 84.3 % (42.2-75.2); PLATELET COUNT (AUTO) 167 K/uL (140-450); RED BLOOD CELL COUNT(AUTO) 2.39 MIL/uL (4.20-6.10); RED CELL DISTRIBUTION WIDTH 18.1 % (11.6-13.7); WHITE BLOOD COUNT (AUTO) 8.7 K/uL (4.8-10.8)
[2023-04-20 05:48] LABS: HEMOGLOBIN 6.9 g/dL (12.0-18.0)
[2023-04-20] MEDS: INSULIN LISPRO SLIDING SCALE 100 UNITS/ML VIAL SUBQ PRN ×2 (07:04→11:36)
[2023-04-20] MEDS: BLOOD GLUCOSE MONITORING 1 DEV DEV FS SCH ×4 (07:05→21:21)
[2023-04-20 07:26] LABS: ANION GAP 10.4 (8-16); CALCIUM 9.6 mg/dL (8.5-10.1); CARBON DIOXIDE 33.4 mmol/L (21-32); CREATININE 1.5 mg/dL (0.6-1.3); POTASSIUM 3.8 mmol/L (3.5-5.1)
[2023-04-20] MEDS: ASCORBIC ACID 500 MG/5 ML ORASYR GT SCH (08:37)
[2023-04-20] MEDS: ZINC SULF 220 MG CAP PO SCH (08:37)
[2023-04-20] MEDS: MULTIVITAMIN 1 TAB PO SCH (08:37)
[2023-04-20] MEDS ORDERED: INSULIN LANTUS 100 UNITS/ML 10 ML VIAL SUBQ SCH (09:00)
[2023-04-20] MEDS: ALGINATE ROPE MC SCH (13:00)
[2023-04-20] MEDS: FOAM DRESSING TP SCH (13:00)
[2023-04-20 19:12] LABS: HEMATOCRIT 27.4 % (36-52)
[2023-04-21] VITALS: BP 136/61; PULSE 98; PULSE 99; RESP 22; TEMP 99; O2SAT 91
[2023-04-21] MEDS: Z-GUARD PASTE TP SCH (01:05)
[2023-04-21 01:34] VITALS: PULSE 102; O2SAT 94
[2023-04-21 04:00] VITALS: BP 144/60; PULSE 94; PULSE 97; RESP 22; TEMP 99.4; O2SAT 94
[2023-04-21] MEDS: DEXT 5% /NACL 0.9% 1,000 ML IV SCH (04:05)
[2023-04-21 04:35] VITALS: PULSE 100; O2SAT 93
[2023-04-21 05:28] LABS: BASOPHILS % (AUTO) 0.1 % (0.0-2.0); EOSINOPHILS % (AUTO) 0.5 % (0.0-4.0); HEMATOCRIT 27.6 % (36-52); HEMOGLOBIN 9.2 g/dL (12.0-18.0); LYMPHOCYTES # (AUTO) 0.6 K/uL (2.0-11.5); LYMPHOCYTES % (AUTO) 6.7 % (20.5-51.1); MEAN CORPUSCULAR HEMOGLOBIN 29 pg (27-31); MEAN CORPUSCULAR HGB CONC 33 g/dL (33-37); MEAN CORPUSCULAR VOLUME 87.9 fL (80-94); MONOCYTES # (AUTO) 0.8 K/uL (0.8-1.0); MONOCYTES % (AUTO) 9.5 % (1.7-9.3); NEUTROPHILS # (AUTO) 7.1 K/uL (1.8-7.7); NEUTROPHILS % (AUTO) 83.2 % (42.2-75.2); PLATELET COUNT (AUTO) 162 K/uL (140-450); RED BLOOD CELL COUNT(AUTO) 3.15 MIL/uL (4.20-6.10); RED CELL DISTRIBUTION WIDTH 19.4 % (11.6-13.7); WHITE BLOOD COUNT (AUTO) 8.6 K/uL (4.8-10.8)
[2023-04-21 07:44] LABS: ANION GAP 12.4 (8-16); CALCIUM 9.5 mg/dL (8.5-10.1); CARBON DIOXIDE 31.4 mmol/L (21-32); CREATININE 1.4 mg/dL (0.6-1.3); POTASSIUM 3.8 mmol/L (3.5-5.1)
== END 2023-04-21 07:00 | DRG 130 ==
LOC: MED 13:58 → MTU 15:55 → UNDOADMOB 15:55 → MTU 19:55 → OBSVTOIN 19:55 → INTOOBSV 04-17 15:55
PROVIDERS: ADMIT Hospitalist; ATTEND Hospitalist
PROC: 30233N1 Transfusion of Nonautologous Red Blood Cells into Peripheral Vein, Percutaneous Approach (ICD-10-PCS; principal; 2023-04-20)
PROC: 5A1955Z Respiratory Ventilation, Greater than 96 Consecutive Hours (ICD-10-PCS; 2023-04-20)
DX: J15.8 Pneumonia due to other specified bacteria (principal); G93.1 Anoxic brain damage, not elsewhere classified; N17.9 Acute kidney failure, unspecified; E44.0 Moderate protein-calorie malnutrition; E87.3 Alkalosis; E87.1 Hypo-osmolality and hyponatremia; E11.9 Type 2 diabetes mellitus without complications; D64.9 Anemia, unspecified; J96.10 Chronic respiratory failure, unspecified whether with hypoxia or hypercapnia; I10 Essential (primary) hypertension; Z93.0 Tracheostomy status; Z93.1 Gastrostomy status; Z68.27 Body mass index [BMI] 27.0-27.9, adult
CPT/HCPCS: 36415; 71045; 80048; 80053; 82948; 83735; 83880; 84484; 85018; 85025; 86886; 86900; 86901; 86920; 87040; 87070; 87081; 87205; 89220; 93005; 94002; 94003; 96374; 99285; G0378; J0696; J1815; P9016

== ENCOUNTER 2023-05-04 15:12 | Inpatient (IN) | payer OTHER ==
[2023-05-04] VITALS (7 sets, daily range): BP systolic 107–139; BP diastolic 52–105; PULSE 89–103; RESP 22–23; TEMP 97.7–99; O2SAT 95–100
[~2023-05-04] VITALS: Ht 162.6 cm; Wt 58.1 kg
[2023-05-04] MEDS ORDERED: CEFEPIME 2,000 MG in DEXTROSE 5% 100 ML IV ONE (15:35)
[2023-05-04] MEDS ORDERED: VANCOMYCIN 1,000 MG in DEXTROSE 5% 250 ML IV ONE (15:35)
[2023-05-04 16:24] LABS: BASOPHILS % (AUTO) 0.1 % (0.0-2.0); EOSINOPHILS # (AUTO) 0.1 K/uL (0-0.4); EOSINOPHILS % (AUTO) 1.7 % (0.0-4.0); HEMATOCRIT 23.8 % (36-52); HEMOGLOBIN 7.7 g/dL (12.0-18.0); LYMPHOCYTES # (AUTO) 0.3 K/uL (2.0-11.5); LYMPHOCYTES % (AUTO) 3.5 % (20.5-51.1); MEAN CORPUSCULAR HEMOGLOBIN 29 pg (27-31); MEAN CORPUSCULAR HGB CONC 32 g/dL (33-37); MEAN CORPUSCULAR VOLUME 89.4 fL (80-94); MONOCYTES # (AUTO) 0.8 K/uL (0.8-1.0); MONOCYTES % (AUTO) 10.9 % (1.7-9.3); NEUTROPHILS # (AUTO) 6.4 K/uL (1.8-7.7); NEUTROPHILS % (AUTO) 83.8 % (42.2-75.2); PLATELET COUNT (AUTO) 295 K/uL (140-450); RED BLOOD CELL COUNT(AUTO) 2.66 MIL/uL (4.20-6.10); RED CELL DISTRIBUTION WIDTH 17.5 % (11.6-13.7); WHITE BLOOD COUNT (AUTO) 7.6 K/uL (4.8-10.8)
[2023-05-04] MEDS ORDERED: POTASSIUM CHLORIDE 10 MEQ TABER PO PRN (16:25)
[2023-05-04] MEDS ORDERED: ACETAMINOPHEN 325 MG TAB PO PRN (16:25)
[2023-05-04] MEDS ORDERED: MORPHINE SULFATE 4 MG/ML SYR IVP PRN (16:25)
[2023-05-04] MEDS ORDERED: MAGNESIUM OXIDE 400 MG TAB PO PRN (16:25)
[2023-05-04] MEDS ORDERED: HYDROcodone/APAP 5/325 MG 1 TAB TAB PO PRN (16:25)
[2023-05-04] MEDS ORDERED: KCL 20 MEQ IN 100 mL PREMIX 200 ML IV PRN (16:25)
[2023-05-04] MEDS ORDERED: VANCOMYCIN PER PHARMACY MC PRN (16:25)
[2023-05-04] MEDS ORDERED: MAG SULF 2000 MG/WATER PREMIX 50 ML IV PRN (16:25)
[2023-05-04 16:33] LABS: ALBUMIN 1.5 g/dL (3.4-5.0); ANION GAP 12.4 (8-16); CALCIUM 8.9 mg/dL (8.5-10.1); CARBON DIOXIDE 33.9 mmol/L (21-32); CREATININE 2.5 mg/dL (0.6-1.3); POTASSIUM 5.3 mmol/L (3.5-5.1); TOTAL BILIRUBIN 0.2 mg/dL (0.0-1.0); TOTAL PROTEIN, SERUM 7.3 g/dL (6.4-8.2)
[2023-05-04 16:34] LABS: SALICYLATE < 2.8 mg/dL (2.8-20.0)
[2023-05-04 16:35] LABS: ACETAMINOPHEN < 0.5 ug/ml (10-30)
[2023-05-04 16:38] LABS: CREATINE KINASE, TOTAL 15 U/L (39-308)
[2023-05-04 16:45] LABS: BLOOD GAS PCO2 55.5 mmHg (35-45); BLOOD GAS PH 7.379 (7.35-7.45)
[2023-05-04 16:46] LABS: BLOOD GAS BASE EXCESS 5.9 mmol/L (-2.0-2.0); BLOOD GAS O2 SAT% 96.4 % (92.0-98.5); BLOOD GAS PO2 92.7 mmHg (75-100)
[2023-05-04 16:48] LABS: BILIRUBIN,URINE NEGATIVE (NEGATIVE); BLOOD, URINE TRACE-I (NEGATIVE); COLOR,URINE YELLOW (YELLOW); LEUKOCYTE ESTERASE ,URINE 2+ (NEGATIVE); NITRITE, URINE POSITIVE (NEGATIVE); PH,URINE 7.5 (5.0-9.0); PROTEIN,URINE 2+ (NEGATIVE); UGLUCOSE NEGATIVE (NEGATIVE); UROBILINOGEN,URINE 0.2 EU/dL (0.2 - 1)
[2023-05-04 16:49] LABS: APPEARANCE,URINE HAZY (CLEAR)
[2023-05-04] MEDS ORDERED: CEFEPIME 2,000 MG VIAL IV ONE (16:52)
[2023-05-04 16:55] LABS: RBC,URINE 0-5 /HPF (0-5)
[2023-05-04 16:56] LABS: BACTERIA,URINE 10-30 (MOD) /HPF (None Seen); SQUAMOUS EPITHELIAL CELL,UR 4-10 (MOD) /LPF (0-3 (FEW))
[2023-05-04 16:58] LABS: LACTIC ACID 1.1 mmol/L (0.4-2.0)
[2023-05-04] MEDS ORDERED: SODIUM POLYSTYRENE 15 GM/60 ML UDBTL PO SCH (17:30)
[2023-05-04] MEDS ORDERED: VANCOMYCIN 1,000 MG VIAL ONE (17:43)
[2023-05-04 18:01] LABS: FLU A ANTIGEN negative (NEGATIVE); FLU B ANTIGEN NEGATIVE (NEGATIVE)
[2023-05-04] MEDS: NACL 0.9% 1,000 ML IV SCH (18:33)
[2023-05-04] MEDS: metroNIDAZOLE 500 MG/NS PREMIX 100 ML IV SCH (20:32)
[2023-05-05] VITALS (24 sets, daily range): BP systolic 85–136; BP diastolic 45–81; PULSE 79–105; RESP 18–24; TEMP 97.6–98.9; O2SAT 94–100
[2023-05-05] MEDS ORDERED: CEFEPIME 1,000 MG VIAL ONE (02:44)
[2023-05-05] MEDS: metroNIDAZOLE 500 MG/NS PREMIX 100 ML IV SCH ×3 (04:07→20:44)
[2023-05-05] MEDS: CEFEPIME 1,000 MG in DEXTROSE 5% 50 ML IV SCH ×2 (04:07→16:11)
[2023-05-05] MEDS ORDERED: DEXTROSE 50% 50 ML SYR IVP ONE (04:26)
[2023-05-05] MEDS: NACL 0.9% 1,000 ML IV SCH (04:55)
[2023-05-05] MEDS ORDERED: DEXTROSE 50% 50 ML SYR IVP PRN (05:05)
[2023-05-05 05:32] LABS: BASOPHILS % (AUTO) 0.5 % (0.0-2.0); EOSINOPHILS # (AUTO) 0.2 K/uL (0-0.4); EOSINOPHILS % (AUTO) 3.7 % (0.0-4.0); HEMATOCRIT 24.3 % (36-52); HEMOGLOBIN 7.9 g/dL (12.0-18.0); LYMPHOCYTES # (AUTO) 0.3 K/uL (2.0-11.5); LYMPHOCYTES % (AUTO) 4.8 % (20.5-51.1); MEAN CORPUSCULAR HEMOGLOBIN 29 pg (27-31); MEAN CORPUSCULAR HGB CONC 33 g/dL (33-37); MEAN CORPUSCULAR VOLUME 89.7 fL (80-94); MONOCYTES # (AUTO) 0.6 K/uL (0.8-1.0); MONOCYTES % (AUTO) 9.8 % (1.7-9.3); NEUTROPHILS # (AUTO) 4.9 K/uL (1.8-7.7); NEUTROPHILS % (AUTO) 81.2 % (42.2-75.2); PLATELET COUNT (AUTO) 301 K/uL (140-450); RED BLOOD CELL COUNT(AUTO) 2.71 MIL/uL (4.20-6.10); RED CELL DISTRIBUTION WIDTH 17.4 % (11.6-13.7); WHITE BLOOD COUNT (AUTO) 6.1 K/uL (4.8-10.8)
[2023-05-05 05:46] LABS: ANION GAP 12.7 (8-16); CALCIUM 8.7 mg/dL (8.5-10.1); CARBON DIOXIDE 31.4 mmol/L (21-32); CREATININE 2.5 mg/dL (0.6-1.3); POTASSIUM 4.1 mmol/L (3.5-5.1)
[2023-05-05 06:28] LABS: MAGNESIUM 3.3 mg/dL (1.8-2.4)
[2023-05-05] MEDS: BLOOD GLUCOSE MONITORING 1 DEV DEV FS SCH ×4 (06:57→20:58)
[2023-05-05] MEDS ORDERED: IPRATROPIUM 0.02% 0.5 MG/2.5 ML NEBU INH PRN (07:20)
[2023-05-05] MEDS ORDERED: ALBUTEROL 0.083% 2.5 MG/3 ML NEBU INH PRN (07:20)
[2023-05-05] MEDS ORDERED: ALBUTEROL 0.083% 2.5 MG/3 ML NEBU INH ONE (07:23)
[2023-05-05] MEDS ORDERED: IPRATROPIUM 0.02% 0.5 MG/2.5 ML NEBU INH ONE (07:24)
[2023-05-05] MEDS ORDERED: DEXTROSE 5% 1,000 ML IV SCH (09:00)
[2023-05-05] MEDS: DEXT 5% /NACL 0.9% 1,000 ML IV SCH (14:13)
[2023-05-05] MEDS ORDERED: VANCOMYCIN 1,000 MG in DEXTROSE 5% 250 ML IV SCH (18:00)
[2023-05-05] MEDS: INSULIN LISPRO SLIDING SCALE 100 UNITS/ML VIAL SUBQ PRN (20:59)
[2023-05-06] VITALS (19 sets, daily range): BP systolic 108–119; BP diastolic 55–64; PULSE 84–97; RESP 18–20; TEMP 96.9–98.8; O2SAT 94–99
[2023-05-06] MEDS: DEXT 5% /NACL 0.9% 1,000 ML IV SCH ×2 (03:10→15:25)
[2023-05-06] MEDS: metroNIDAZOLE 500 MG/NS PREMIX 100 ML IV SCH ×3 (04:18→20:12)
[2023-05-06 05:43] LABS: BASOPHILS % (AUTO) 0.7 % (0.0-2.0); EOSINOPHILS # (AUTO) 0.2 K/uL (0-0.4); EOSINOPHILS % (AUTO) 3.3 % (0.0-4.0); HEMATOCRIT 24.8 % (36-52); HEMOGLOBIN 8.2 g/dL (12.0-18.0); LYMPHOCYTES # (AUTO) 0.4 K/uL (2.0-11.5); LYMPHOCYTES % (AUTO) 7.6 % (20.5-51.1); MEAN CORPUSCULAR HEMOGLOBIN 29 pg (27-31); MEAN CORPUSCULAR HGB CONC 33 g/dL (33-37); MEAN CORPUSCULAR VOLUME 88.5 fL (80-94); MONOCYTES # (AUTO) 0.6 K/uL (0.8-1.0); MONOCYTES % (AUTO) 11.2 % (1.7-9.3); NEUTROPHILS # (AUTO) 3.8 K/uL (1.8-7.7); NEUTROPHILS % (AUTO) 77.2 % (42.2-75.2); PLATELET COUNT (AUTO) 307 K/uL (140-450); RED CELL DISTRIBUTION WIDTH 17.3 % (11.6-13.7)
[2023-05-06] MEDS: CEFEPIME 1,000 MG in DEXTROSE 5% 50 ML IV SCH ×2 (06:00→16:16)
[2023-05-06 06:02] LABS: CALCIUM 8.6 mg/dL (8.5-10.1); CARBON DIOXIDE 26.9 mmol/L (21-32); CREATININE 2.6 mg/dL (0.6-1.3); POTASSIUM 3.9 mmol/L (3.5-5.1)
[2023-05-06 06:30] LABS: MAGNESIUM 3.5 mg/dL (1.8-2.4); PHOSPHORUS 6.4 mg/dL (2.5-4.9)
[2023-05-06] MEDS: BLOOD GLUCOSE MONITORING 1 DEV DEV FS SCH ×4 (06:40→20:11)
[2023-05-06] MEDS: INSULIN LISPRO SLIDING SCALE 100 UNITS/ML VIAL SUBQ PRN ×2 (06:44→11:12)
[2023-05-06] MEDS ORDERED: Z-GUARD PASTE TP PRN (13:35)
[2023-05-06] MEDS ORDERED: ALGINATE ROPE MC PRN (13:35)
[2023-05-06] MEDS ORDERED: FOAM DRESSING TP PRN (13:35)
[2023-05-06] MEDS ORDERED: FOAM DRESSING TP SCH (15:00)
[2023-05-06] MEDS: Z-GUARD PASTE TP SCH (15:16)
[2023-05-06] MEDS: ALGINATE ROPE MC SCH (15:16)
[2023-05-07] VITALS (22 sets, daily range): BP systolic 109–129; BP diastolic 58–69; PULSE 83–92; RESP 20–27; TEMP 97–98.4; O2SAT 96–99
[2023-05-07] MEDS: DEXT 5% /NACL 0.9% 1,000 ML IV SCH (02:56)
[2023-05-07] MEDS: CEFEPIME 1,000 MG in DEXTROSE 5% 50 ML IV SCH ×2 (04:46→16:12)
[2023-05-07] MEDS: metroNIDAZOLE 500 MG/NS PREMIX 100 ML IV SCH ×3 (05:26→21:05)
[2023-05-07 05:39] LABS: BASOPHILS % (AUTO) 0.5 % (0.0-2.0); EOSINOPHILS # (AUTO) 0.2 K/uL (0-0.4); EOSINOPHILS % (AUTO) 4.6 % (0.0-4.0); HEMOGLOBIN 8.1 g/dL (12.0-18.0); LYMPHOCYTES # (AUTO) 0.6 K/uL (2.0-11.5); LYMPHOCYTES % (AUTO) 11.8 % (20.5-51.1); MEAN CORPUSCULAR HEMOGLOBIN 29 pg (27-31); MEAN CORPUSCULAR HGB CONC 33 g/dL (33-37); MONOCYTES # (AUTO) 0.8 K/uL (0.8-1.0); MONOCYTES % (AUTO) 14.5 % (1.7-9.3); NEUTROPHILS # (AUTO) 3.6 K/uL (1.8-7.7); NEUTROPHILS % (AUTO) 68.6 % (42.2-75.2); PLATELET COUNT (AUTO) 291 K/uL (140-450); RED BLOOD CELL COUNT(AUTO) 2.77 MIL/uL (4.20-6.10); RED CELL DISTRIBUTION WIDTH 17.3 % (11.6-13.7); WHITE BLOOD COUNT (AUTO) 5.3 K/uL (4.8-10.8)
[2023-05-07 05:59] LABS: MAGNESIUM 3.3 mg/dL (1.8-2.4)
[2023-05-07] MEDS: BLOOD GLUCOSE MONITORING 1 DEV DEV FS SCH ×4 (06:39→21:06)
[2023-05-07] MEDS: INSULIN LISPRO SLIDING SCALE 100 UNITS/ML VIAL SUBQ PRN ×3 (06:41→21:07)
[2023-05-07 06:46] LABS: CALCIUM 8.8 mg/dL (8.5-10.1); CARBON DIOXIDE 24.1 mmol/L (21-32); CREATININE 2.8 mg/dL (0.6-1.3); POTASSIUM 3.1 mmol/L (3.5-5.1)
[2023-05-07] MEDS ORDERED: POTASSIUM CHLORIDE 20% 40 MEQ/15 ML UDC GT PRN ×2 (08:20)
[2023-05-07] MEDS: NACL 0.9% 1,000 ML IV SCH (09:28)
[2023-05-07] MEDS: ALBUMIN HUMAN 25% 50 ML IV SCH ×2 (11:11→17:01)
[2023-05-07] MEDS: ALGINATE ROPE MC SCH (11:59)
[2023-05-07] MEDS: Z-GUARD PASTE TP SCH (11:59)
[2023-05-08] VITALS (10 sets, daily range): BP systolic 115–131; BP diastolic 54–66; PULSE 83–104; RESP 17–25; TEMP 96.9–98.7; O2SAT 89–99
[2023-05-08] MEDS: ALBUMIN HUMAN 25% 50 ML IV SCH ×4 (00:38→18:42)
[2023-05-08] MEDS: NACL 0.9% 1,000 ML IV SCH ×2 (02:00→09:38)
[2023-05-08] MEDS: CEFEPIME 1,000 MG in DEXTROSE 5% 50 ML IV SCH ×2 (04:20→17:29)
[2023-05-08] MEDS: metroNIDAZOLE 500 MG/NS PREMIX 100 ML IV SCH ×3 (05:11→21:00)
[2023-05-08 05:40] LABS: BASOPHILS # (AUTO) 0.2 K/uL (0.00-0.22); BASOPHILS % (AUTO) 2.1 % (0.0-2.0); EOSINOPHILS # (AUTO) 0.3 K/uL (0-0.4); EOSINOPHILS % (AUTO) 2.7 % (0.0-4.0); HEMATOCRIT 26.3 % (36-52); HEMOGLOBIN 8.4 g/dL (12.0-18.0); LYMPHOCYTES # (AUTO) 0.5 K/uL (2.0-11.5); LYMPHOCYTES % (AUTO) 5.5 % (20.5-51.1); MEAN CORPUSCULAR HEMOGLOBIN 29 pg (27-31); MEAN CORPUSCULAR HGB CONC 32 g/dL (33-37); MEAN CORPUSCULAR VOLUME 89.7 fL (80-94); MONOCYTES # (AUTO) 0.9 K/uL (0.8-1.0); MONOCYTES % (AUTO) 9.5 % (1.7-9.3); NEUTROPHILS # (AUTO) 7.5 K/uL (1.8-7.7); NEUTROPHILS % (AUTO) 80.2 % (42.2-75.2); PLATELET COUNT (AUTO) 335 K/uL (140-450); RED BLOOD CELL COUNT(AUTO) 2.93 MIL/uL (4.20-6.10); RED CELL DISTRIBUTION WIDTH 17.9 % (11.6-13.7); WHITE BLOOD COUNT (AUTO) 9.4 K/uL (4.8-10.8)
[2023-05-08 05:48] LABS: ANION GAP 11.6 (8-16); CALCIUM 9.7 mg/dL (8.5-10.1); CARBON DIOXIDE 26.6 mmol/L (21-32); CREATININE 2.6 mg/dL (0.6-1.3); MAGNESIUM 3.2 mg/dL (1.8-2.4); PHOSPHORUS 5.2 mg/dL (2.5-4.9); POTASSIUM 3.2 mmol/L (3.5-5.1)
[2023-05-08] MEDS: BLOOD GLUCOSE MONITORING 1 DEV DEV FS SCH ×4 (06:36→21:00)
[2023-05-08] MEDS: INSULIN LISPRO SLIDING SCALE 100 UNITS/ML VIAL SUBQ PRN ×2 (06:36→11:37)
[2023-05-08] MEDS: ALGINATE ROPE MC SCH (13:00)
[2023-05-08] MEDS: Z-GUARD PASTE TP SCH (13:43)
[2023-05-08] MEDS ORDERED: MORPHINE SULFATE 50 MG in NACL 0.9% 45 ML IV PRN (15:45)
[2023-05-08] MEDS ORDERED: LORazepam 2 MG/ML VIAL IVP PRN (15:45)
[2023-05-09] VITALS: BP 115/54; PULSE 104; PULSE 109; RESP 17; TEMP 97.2; O2SAT 89
[2023-05-09] MEDS: ALBUMIN HUMAN 25% 50 ML IV SCH
== END 2023-05-09 03:53 | DRG 130 ==
LOC: MED 15:12 → MTU 16:25 → MIC 17:22 → MTU 05-05 21:45
PROVIDERS: ADMIT Hospitalist; ATTEND Hospitalist
PROC: 5A1955Z Respiratory Ventilation, Greater than 96 Consecutive Hours (ICD-10-PCS; principal; 2023-05-08)
DX: J18.9 Pneumonia, unspecified organism (principal); E43 Unspecified severe protein-calorie malnutrition; G93.1 Anoxic brain damage, not elsewhere classified; N17.9 Acute kidney failure, unspecified; J96.21 Acute and chronic respiratory failure with hypoxia; Z93.0 Tracheostomy status; R65.10 Systemic inflammatory response syndrome (SIRS) of non-infectious origin without acute organ dysfunction; I10 Essential (primary) hypertension; E87.5 Hyperkalemia; Z20.822 Contact with and (suspected) exposure to COVID-19; Z79.899 Other long term (current) drug therapy; Z86.73 Personal history of transient ischemic attack (TIA), and cerebral infarction without residual deficits; Z79.4 Long term (current) use of insulin; Z99.11 Dependence on respirator [ventilator] status; Z51.5 Encounter for palliative care; Z93.1 Gastrostomy status; Z68.22 Body mass index [BMI] 22.0-22.9, adult
CPT/HCPCS: 36415; 36600; 71045; 76770; 80048; 80053; 80202; 81001; 82550; 82803; 82948; 83605; 83735; 83880; 84100; 84484; 85025; 87040; 87070; 87081; 87086; 87205; 89220; 93005; 94002; 94003; 94640; 99291; G0480; J0692; J1644; J1815; J2060; J2270; J3370; J3490; J7060; J7613; J7644; P9046; Q0092